=== PATIENT | male | born 1970 ===

== ENCOUNTER 2020-10-13 10:07 | Emergency (ER) | payer BC, MEDICARE, SELFPAY ==
--- NOTE | ~2020-10-13 | XR_ITS ---
EXAMINATION: XR TIBIA-FIBULA, LEFT XR TIBIA AND FIBULA, RIGHT CLINICAL INFORMATION: Trauma COMPARISON: None TECHNIQUE: Right tibia-fibula, AP and lateral views Left tibia-fibula, AP and lateral views FINDINGS: Left leg: The knee is included in the [id number]. There is chronic, severe loss of medial tibial femoral joint space with subarticular sclerosis, subarticular cystic change and osteophyte formation. Moderate osteoarthritis of the patellofemoral and lateral tibiofemoral compartments. There are loose ossific bodies within the knee joint. The tibia and fibula are intact. At the ankle, the talar dome is well-positioned within the mortise. There appears to be diffuse edema of subcutaneous tissues with scattered dystrophic calcifications and/or phleboliths. Right leg: The knee is partially included in [id number]. The osteoarthritis is severe at the medial tibiofemoral compartment where there is severe loss of the joint space, subarticular sclerosis, subarticular cystic change and osteophyte formation. The tibia and fibula are intact. There appear to be small marginal osteophytes at the ankle. No fracture or subluxation at the ankle. Diffuse edema of subcutaneous tissues of the extremity and scattered soft tissue calcifications. XR/XR tibia fibula LT 2V IMPRESSION: * No acute osseous injury in either lower extremity. * Osteoarthritis of both knees (severe at medial tibiofemoral compartments, with genu varus deformed). * Mild osteoarthritis of the right ankle.
--- NOTE | ~2020-10-13 | XR_ITS ---
EXAMINATION: XR TIBIA-FIBULA, LEFT XR TIBIA AND FIBULA, RIGHT CLINICAL INFORMATION: Trauma COMPARISON: None TECHNIQUE: Right tibia-fibula, AP and lateral views Left tibia-fibula, AP and lateral views FINDINGS: Left leg: The knee is included in the [id number]. There is chronic, severe loss of medial tibial femoral joint space with subarticular sclerosis, subarticular cystic change and osteophyte formation. Moderate osteoarthritis of the patellofemoral and lateral tibiofemoral compartments. There are loose ossific bodies within the knee joint. The tibia and fibula are intact. At the ankle, the talar dome is well-positioned within the mortise. There appears to be diffuse edema of subcutaneous tissues with scattered dystrophic calcifications and/or phleboliths. Right leg: The knee is partially included in [id number]. The osteoarthritis is severe at the medial tibiofemoral compartment where there is severe loss of the joint space, subarticular sclerosis, subarticular cystic change and osteophyte formation. The tibia and fibula are intact. There appear to be small marginal osteophytes at the ankle. No fracture or subluxation at the ankle. Diffuse edema of subcutaneous tissues of the extremity and scattered soft tissue calcifications. XR/XR tibia fibula RT 2V IMPRESSION: * No acute osseous injury in either lower extremity. * Osteoarthritis of both knees (severe at medial tibiofemoral compartments, with genu varus deformed). * Mild osteoarthritis of the right ankle.
--- NOTE | ~2020-10-13 | US_ITS ---
EXAMINATION: US VENOUS ULTRASOUND WITH DOPPLER LOWER EXTREMITY, BILATERAL CLINICAL INFORMATION: Trauma. COMPARISON: None TECHNIQUE: Ultrasound of the deep veins is performed from the hip to the calf with compression sonography and color and pulse Doppler assessment. Spectral analysis with color-flow imaging is performed. FINDINGS: RIGHT: There is normal venous compression and respiratory variation and augmented flow. The visualized common femoral vein, superficial femoral vein, profunda femoral vein, popliteal vein, and the trifurcation region shows no evidence of deep venous thrombosis. There is no significant popliteal fossa cyst. LEFT: There is normal venous compression and respiratory variation and augmented flow. The visualized common femoral vein, superficial femoral vein, profunda femoral vein, popliteal vein, and the trifurcation region shows no evidence of deep venous thrombosis. There is no significant popliteal fossa cyst. If the patient's symptoms persist, followup ultrasound in 5 days 7 days might be of value to exclude proximal propagation from a non-visualized calf vein. US/US venous duplex LE BI IMPRESSION: No DVT demonstrated in the bilateral lower extremity.
[2020-10-13 10:16] VITALS: BP 132/83; BP 140/83; PULSE 79; PULSE 98; RESP 17; TEMP 36.8; O2SAT 94; O2SAT 98; BMI 57.8
--- NOTE | 2020-10-13 10:33 | ED_ITS ---
HPI - Extremity Problem General Chief complaint: Extremity Problem Stated complaint: SHAHAB LEG PAIN S/P FALL THIS AM Time Seen by Provider: 10/13/20 10:18 Source: patient Mode of arrival: EMS Limitations: no limitations History of Present Illness HPI Narrative: THIS IS A 50 YEARS OLD THE PATIENT WITH MORBID OBESITY PRESENTED BY AMBULANCE COMPLAINING OF RIGHT LEG PAIN AFTER A FALL . HE HAS DIFFICULTY AMBULATION OF BASELINE SECONDARY TO BODY HABITUS MD Complaint: extremity pain Onset (ago): day(s) (1) Pain Consistency: constant Location: right Quality: aching Radiation: none Relieving factors: nothing Exacerbating factors: nothing Related Data Allergies Allergy/AdvReac Type Severity Reaction Status Date / Time risperidone [Risperdal] Allergy Unknown hives/rash Verified 10/13/20 10:16 nitroglycerin [NITROGLYCERIN] AdvReac Unknown SEVERE Verified 10/13/20 10:16 HYPOTENSION Review of Systems Review of Systems: Yes all other systems are reviewed and are negative Constitutional: Constitutional: Reports no additional constitutional complaints Eyes: Eyes: Reports no additional eye complaints Cardiovascular: Cardiovascular: Reports no additional cardiovascular complaints Hematologic/Lymphatic: Hematologic/Lymphatic: Reports no additional hematologic/lymphatic complaints [facility] Past Medical History Attestation statement: The following information was validated with the patient. Medical History Arthritis Asthma COPD (chronic obstructive pulmonary disease) DVT (deep venous thrombosis) HTN (hypertension) Sleep apnea Surgical History History of bowel resection Social History Social History Alcohol intake: unknown Patient Tobacco Use Status: Former Tobacco user Smoked in Last 30 Days: No Use of substances other than those prescribed or required for medical reasons: Unknown Advance Directives: No Advance Directives Information Provided: No Physical Exam Vital Signs: Vital Signs: Last Vital Signs Temp 98.2 F 10/13/20 10:36 Pulse 79 10/13/20 10:36 Resp 17 10/13/20 10:36 BP 140/83 H 10/13/20 10:36 Pulse Ox 94 10/13/20 10:36 Body Mass Index 57.8 Const: Other: PATIENT IS AWAKE AND ALERT General: cooperative Nutritional Appearance: well nourished Orientation/consciousness: oriented to person, oriented to place, oriented to time and patient oriented x3 HENMT: Head: Yes normal to inspection General nose exam: Normal external nose present Face and sinus: Yes normal facial exam Mouth: Normal oral and palatal mucosa present Teeth and gingiva: dentition normal Throat: Yes posterior oropharynx normal Neck: Neck: Yes normal visual inspection and Yes full ROM Chest: Chest palpation & inspection: normal inspection of the chest and normal palpation of entire chest wall Resp: Effort & Inspection: normal respiratory effort Auscultation: clear to auscultation bilaterally Cardio: Jugular venous distension: no JVD Rate: regular rate GI: Inspection: Yes normal to inspection Palpation (GI): Soft to palpation, not firm, nontender and no guarding Percussion: Yes normal to percussion Skin: Other: NO RASH Neuro: General: oriented to person, oriented to place, oriented to time and patient oriented x3 Extrem: Other: PATIENT HAS BILATERAL EDEMA IN THE LOWER EXTREMITY NO DEFORMITY SEEN Course Course Course Narrative: IS FEELING BETTER BILATERAL LEG ULTRASOUND THE NEGATIVE X-RAY OF THE BOTH LEGS ARE NEGATIVE WITHOUT ANY FRACTURE. HE HAS LOWER EXTREMITY EDEMA I THINK AT THE THIS POINT WE COULD DISCHARGE THE PATIENT HOME WITH LEG ELEVATION AND THE LOW-SALT DIET (NO DVT SEEN ON ULTRASOUND) Discharge Plan Discharge Clinical Impression: Lower extremity edema Patient Disposition: Home, Self-Care Instructions: Edema (ED) Referrals: Physician,Unknown [Primary Care Provider] - 2 days
[2020-10-13] MEDS: LORazepam 1 MG TABLET PO (10:34)
[2020-10-13 10:36] VITALS: BP 140/83; PULSE 79; RESP 17; TEMP 36.8; O2SAT 94
--- NOTE | 2020-10-13 10:38 | PC.NURSE ---
pt very restless, thrashing lower legs on the bed and screaming at times. HE states he has right lower leg pain, states it started overnight and caused him to fall at home twice. Pt fell soundly asleep, snoring during triage interview, then startles awake and continues speaking. He reports history of DVT in left leg
--- NOTE | 2020-10-13 10:40 | PC.NURSE ---
pt states he takes oxycodone for pain at home, states he has not refilled his prescription because he has moved, lost ID, not had transportation.He says he has had no medication for 4 days.
[2020-10-13] MEDS: oxyCODONE HCl Immed Release 5 MG TABLET 10 MG PO (10:52)
--- NOTE | 2020-10-13 12:46 | PC.NURSE ---
pt has been to ultrasound and awaits results. He has been sitting at bed edge, pt very restless.
[2020-10-13 12:55] VITALS: BP 172/90; PULSE 98; RESP 17; O2SAT 98
== END 2020-10-13 13:01 | disposition home or self-care (01) ==
PROVIDERS: Emergency Provider Emergency Medicine
DX: R60.0 Localized edema (principal); M79.604 Pain in right leg; I10 Essential (primary) hypertension; Z86.718 Personal history of other venous thrombosis and embolism
CPT/HCPCS: 73590; 93970; 99284

== ENCOUNTER 2020-10-31 22:11 | Emergency (ER) | payer BC, MEDICARE, SELFPAY ==
[2020-10-31 22:19] VITALS: BP 150/93; PULSE 89; RESP 18; TEMP 36.8; O2SAT 100; BMI 46.9
[2020-10-31 22:43] VITALS: BP 131/70; PULSE 85; TEMP 37.1; O2SAT 94
--- NOTE | 2020-10-31 22:55 | ED_ITS ---
HPI - SOB/Dyspnea General Chief Complaint: Dyspnea Stated Complaint: DIFF BREATHING Time Seen by Provider: 10/31/20 22:21 Source: patient Mode of arrival: EMS Limitations: no limitations History of Present Illness HPI Narrative: 50-year-old male who presents emergency department for evaluation of shortness of breath. Patient has a history of asthma and obstructive sleep apnea. He states that 2 weeks prior he was living in [facility] and took a [employer] bus back to the [facility]. He states that the bus took 4 days. The patient states that he had a bag with his medications and his CPAP machine in it. This bag was lost. He states he has not been taking any of his medications are using his CPAP machine. He states that he was feeling fine all day. He went to bed at 8:30 p.m.. He then woke up short of breath. States he is having difficulty catching his breath therefore he called 911. He states that he had his nebulizer machine he would have used it at home. The patient denied fever, chills, chest pain, cough or dyspnea on exertion prior to the onset of his shortness of breath. He states that he is feeling significantly better since arriving in the emergency department. Patient's O2 saturation on room air is 100%. Patient states that he has chronic pain and he takes oxycodone 15 mg every 6 hours. Patient states that he is having pain in his shoulders, elbows hips and knees. Related Data Previous Rx's Medication Instructions Recorded albuterol sulfate 2.5 mg INHALATION Q4-6H PRN #75 ml 11/01/20 albuterol sulfate 90 mcg/actuation 2 puff INHALATION Q4-6H PRN #8.5 g 11/01/20 aerosol inhaler prednisone 20 mg tablet 60 mg PO DAILY 5 Days #15 tab 11/01/20 Allergies Allergy/AdvReac Type Severity Reaction Status Date / Time risperidone [Risperdal] Allergy Unknown hives/rash Verified 10/13/20 10:16 nitroglycerin [NITROGLYCERIN] AdvReac Unknown SEVERE Verified 10/13/20 10:16 HYPOTENSION Review of Systems Review of Systems: Yes all other systems are reviewed and are negative [facility] Past Medical History [facility] Narrative: Past medical history: Please see below, this was reviewed by me. Social history: He denies tobacco, alcohol and drug use. Medical History Arthritis Asthma COPD (chronic obstructive pulmonary disease) DVT (deep venous thrombosis) HTN (hypertension) Sleep apnea Surgical History History of bowel resection Social History Social History Alcohol intake: unknown Patient Tobacco Use Status: Former Tobacco user Advance Directives: No Advance Directives Information Provided: Yes Physical Exam Vital Signs: Vital Signs: Last Vital Signs Temp 97.9 F 11/01/20 01:35 Pulse 82 11/01/20 01:35 Resp 34 H 11/01/20 01:35 BP 134/61 11/01/20 01:35 Pulse Ox 89 L 11/01/20 01:35 Body Mass Index 46.9 Const: General: cooperative and no acute distress Nutritional Appearance: obese Orientation/consciousness: oriented to person and oriented to place Limitations: no limitations HENMT: Head: Yes normal to inspection, Yes normocephalic and Yes atraumatic Ears: external ears normal General nose exam: Normal external nose present Face and sinus: Yes normal facial exam Mouth: Normal oral and palatal mucosa present Throat: Yes posterior oropharynx normal Eyes: General: appearance normal, both eyes and all related structures Pupils: Equal, round and reactive pupils present Neck: Neck: Yes normal visual inspection, Yes no lymphadenopathy, Yes trachea midline and Yes supple Chest: Chest palpation & inspection: normal inspection of the chest and normal palpation of entire chest wall Resp: Effort & Inspection: normal respiratory effort and able to speak in complete sentences Auscultation: wheezes (Bilaterally diffuse) Cardio: Rate: regular rate Rhythm: regular rhythm Heart sounds: S1 normal heart sound present, S2 normal heart sound present and no murmurs GI: Inspection: Yes normal to inspection Palpation (GI): Soft to palpation, nontender and no guarding Auscultation: normal bowel sounds : General: Yes no CVA tenderness Back/Spine/Pelvis: Back: no CVA tenderness Skin: General skin exam: no rashes or lesions noted Neuro: General: oriented to person and oriented to place Cranial nerves: Yes CN's II-XII intact bilaterally and Yes Equal, round and reactive pupils present Cognition (Neuro): normal cognition Motor exam (neuro): 5/5 motor strength present throughout Extrem: General: Yes normal to inspection Psych: Appearance: grossly normal Speech and movement: Normal speech and movement present Affect: normal affect Attitude: cooperative Thought process: Normal thought process present Thought content: Normal thought content present Course Course Course Narrative: 50-year-old male who has a history of asthma and obstructive sleep apnea who presents emergency department for evaluation of shortness of breath that woke him from sleep. Patient had no chest pain associated with his shortness of breath. He denied fever or cough as well. The patient has not been using his CPAP machine, his albuterol inhaler or his other medications since he lost these 2 weeks later while he was riding a [employer] bus. Vital signs revealed an elevated blood pressure of 150/93 and an O2 saturation of 100% on room air. Lung exam did reveal diffuse wheezing. Exam was otherwise unremarkable. I do not think the patient has a pulmonary embolism or pneumonia as the cause was symptoms and I think that his symptoms are consistent with an asthma exacerbation. He was ordered to get prednisone 60 mg orally and an albuterol nebulizer 5 mg x1. Patient does have a history of chronic pain and he was ordered to get oxycodone 15 mg orally. 0141: The patient's lung exam is significantly improved after the above treatment. The patient states that he has reordered his CPAP machine, his nebulizer and his glucometer. At this time I do not think the patient needs to be hospitalized and he will be discharged home with a prescription for prednisone 60 mg once a day for 5 days, albuterol inhaler 2 puffs every 4 hours as needed for shortness of breath and albuterol nebulizer solution. The patient was given verbal and printed instructions prior to discharge. The patient was advised to follow-up with his PCP in 2 days and to return to the emergency department if his symptoms get worse or if he develops any new symptoms that are concerning to him. Discharge Plan Discharge Clinical Impression: Asthma with exacerbation Patient Disposition: Home, Self-Care Instructions: Asthma (ED) Additional Instructions: Take prednisone 20 mg pills, 3 pills once a day for 5 days. Use the albuterol inhaler , 2 puffs every 4-6 hours as needed for shortness of breath and wheezing. Also use the albuterol nebulizer solution, 1 dose every 4-6 hours as needed for shortness of breath and wheezing. Follow-up with your doctor in 2 days. Please return to the emergency department if your symptoms get worse or if you develop any symptoms that are concerning to you. Prescriptions: New albuterol sulfate 90 mcg/actuation HFA aerosol inhaler 2 puff inhalation Q4-6H PRN (Reason: shortness of breath or wheezing) Qty: 8.5 RF: 0 prednisone 20 mg tablet 60 mg PO DAILY 5 Days Qty: 15 RF: 0 albuterol sulfate 2.5 mg /3 mL (0.083 %) solution for nebulization 2.5 mg inhalation Q4-6H PRN (Reason: shortness of breath or wheezing) Qty: 75 RF: 0
[2020-10-31] MEDS: predniSONE 20 MG TABLET 60 MG PO (23:40)
[2020-10-31] MEDS: oxyCODONE HCl Immed Release 15 MG TABLET PO (23:40)
[2020-10-31] MEDS: Albuterol Sulfate (0.083%) 2.5 MG/3 ML VIAL.NEB 5 MG INHALE (23:58)
[2020-10-31 23:59] VITALS: PULSE 66
[2020-11-01 01:35] VITALS: BP 134/61; PULSE 82; RESP 34; TEMP 36.6; O2SAT 89
[2020-11-01 01:49] VITALS: BP 139/67; PULSE 84; RESP 20; O2SAT 94
== END 2020-11-01 02:21 | disposition home or self-care (01) ==
PROVIDERS: Emergency Provider Emergency Medicine Emergency Medical Services
DX: J45.901 Unspecified asthma with (acute) exacerbation (principal); R06.02 Shortness of breath; I10 Essential (primary) hypertension; Z86.718 Personal history of other venous thrombosis and embolism
CPT/HCPCS: 94640; 99284

== ENCOUNTER 2020-11-13 21:07 | Emergency (ER) | payer BC, SELFPAY ==
--- NOTE | ~2020-11-13 | XR_ITS ---
EXAMINATION: XR CHEST CLINICAL INFORMATION: Chest pain. COMPARISON: 08/02/2014 chest radiograph. TECHNIQUE: Frontal view of the chest was obtained. FINDINGS: No significant abnormality is noted involving the heart, lungs, mediastinum, bony thorax or soft tissues. XR/XR chest 1V IMPRESSION: No acute cardiopulmonary process.
--- NOTE | 2020-11-13 21:18 | ECG_ITS ---
Test Reason : CHEST PAIN Blood Pressure : / mmHG Vent. Rate : 091 BPM Atrial Rate : 091 BPM P-R Int : 138 ms QRS Dur : 076 ms QT Int : 358 ms P-R-T Axes : 071 047 072 degrees QTc Int : 440 ms Normal sinus rhythm Low voltage QRS Borderline ECG No previous ECGs available Referred By: Bin Flores Electronically Signed By:RAFITA JIMENEZ
--- NOTE | 2020-11-13 21:20 | ED.SOB ---
HPI - SOB/Dyspnea General Chief Complaint: General Medical Stated Complaint: CHEST PAIN Time Seen by Provider: 11/13/20 21:10 Source: patient Mode of arrival: ambulatory Limitations: no limitations History of Present Illness HPI Narrative: 50-year-old male came in for evaluation of chest palpitation. Chest palpitation started about 2 hours before arrival, patient felt no chest pain that felt the palpitation is radiating to the left shoulder area, with numbness at the tip of fingers in both sides, lasted for about 15-20 minutes. Patient was sitting and resting during the symptoms, symptoms resolved spontaneously, patient currently has no palpitation. Nothing relieving the pain or make it worse, no history of similar chest pain. Patient is not COVID vaccinated, patient is homeless reside in a motel currently, no exposure to sick contact, but recently traveled inside the night state, patient feeling generalized body aches, sneezing, coughing, difficulty breathing with wheezing. With known history of COPD/asthma. Patient is a former smoker. Related Data Previous Rx's Medication Instructions Recorded albuterol sulfate 2.5 mg INHALATION Q4-6H PRN #75 ml 11/01/20 albuterol sulfate 90 mcg/actuation 2 puff INHALATION Q4-6H PRN #8.5 g 11/01/20 aerosol inhaler prednisone 20 mg tablet 60 mg PO DAILY 5 Days #15 tab 11/01/20 Allergies Allergy/AdvReac Type Severity Reaction Status Date / Time risperidone [Risperdal] Allergy Unknown hives/rash Verified 10/13/20 10:16 nitroglycerin [NITROGLYCERIN] AdvReac Unknown SEVERE Verified 10/13/20 10:16 HYPOTENSION Review of Systems Review of Systems: All other systems are reviewed and are negative Constitutional: Reports as per HPI and Reports no additional constitutional complaints Eyes: Reports as per HPI and Reports no additional eye complaints Reports system reviewed and no additional complaints, except as documented Cardiovascular: Reports as per HPI and Reports no additional cardiovascular complaints Respiratory: Reports as per HPI and Reports no additional respiratory complaints Gastrointestinal: Reports as per HPI and Reports no additional gastrointestinal complaints Genitourinary: Reports no additional female genitourinary complaints Musculoskeletal: Reports no additional musculoskeletal complaints Skin/Breast: Reports system reviewed and no additional complaints, except as docu Psychiatric: Reports no additional psychiatric complaints Endocrine: Reports no additional endocrine complaints Hematologic/Lymphatic: Reports no additional hematologic/lymphatic complaints Allergic/Immunologic: Reports no additional allergic/immunologic complaints Reports system reviewed and no additional complaints, except as documented and Reports Abnormal speech present [facility] Past Medical History Medical History Arthritis Asthma COPD (chronic obstructive pulmonary disease) DVT (deep venous thrombosis) HTN (hypertension) Sleep apnea Surgical History History of bowel resection Social History Social History Alcohol intake: unknown Patient Tobacco Use Status: Former Tobacco user Use of substances other than those prescribed or required for medical reasons: No Advance Directives: No Advance Directives Information Provided: Yes Physical Exam Vital Signs: Vital Signs: Last Vital Signs Temp 98.5 F 11/14/20 00:09 Pulse 91 11/14/20 00:09 Resp 38 H 11/14/20 00:09 BP 132/77 11/14/20 00:09 Pulse Ox 92 11/14/20 00:09 Body Mass Index 48.3 Vital signs have been reviewed as appeared to be correct. Blood pressure normal. Heart rate normal. Respiration rate normal. Temperature normal. Oxygen saturation normal. Appearance: Alert. Oriented X3. No acute distress. Head: Normal external exam. Normocephalic. Atraumatic. No Vilchis signs noted. No raccoon eyes noted Eyes: PERRLA. EOMI. Conjunctiva and sclera normal. Eyelids normal. ENT: TM's Normal. Pharynx normal. Uvula midline. Moist mucous membranes. No trismus noted. No drooling noted. No muffled voice noted. Neck: Normal inspection. Neck supple. FROM. No adenopathy. Thyroid Normal. No meningeal signs. No neck mass noted. CVS: Normal heart rate and rhythm. Heart sound normal. No murmurs noted. Pulses normal throughout. Respiratory: No respiratory distress. Painless inspiration. Breath sounds normal. Mild bilateral expiratory wheezing with prolonged expiration. Chest nontender. No accessory muscle usage noted or decreased air movement noted. Abdomen: Soft and nontender. Bowel sounds normal in all 4 quadrants. No distention noted. No organomegaly noted. No visible injury noted. Back: No CVA tenderness. Full range of motion noted. Skin: Skin warm and dry. Normal skin color. Normal skin turgor. No rashes/lesions/lacerations noted. Extremities: No lower extremity edema. Extremities exhibit normal range of motion. Extremities nontender. Neuro: Oriented X 3. Cranial nerve exam: II-XII are grossly intact No motor deficit. No sensory deficit. Reflexes normal. Course Course Course Narrative: Assessment and plan. 50-year-old male came in with heart palpitation and shortness of breath. Patient had cardiac workup of unremarkable EKG and troponin with unremarkable x2 with 3 hours apart. Patient with viral syndrome having upper respiratory symptoms. Mild asthma exacerbation to continue with albuterol. MDM - SOB/Dyspnea Medical Records Attestation: I reviewed the patient's medical records. Lab Data Attestation: I reviewed the patient's lab results. Result diagrams: 11/13/20 21:38 11/13/20 21:37 Labs: Lab Results 11/13/20 11/13/20 11/13/20 Range/Units 21:37 21:37 21:38 WBC 8.9 (4.8-10.8) X10*3/uL RBC 4.51 L (4.60-5.80) X10*6/uL Hgb 13.2 L (14.0-18.0) g/dl Hct 41.1 L (42-52) % MCV 91.1 (80-98) fL MCH 29.3 (27.0-33.0) pg MCHC 32.1 (31.0-36.0) g/dl RDW 12.6 (11.0-16.0) % Plt Count 255 (160-400) X10*3/uL MPV 9.3 L (9.4-12.4) fL Immature Gran % (Auto) 2.5 H (0.0-0.4) % Neut % (Auto) 66.3 (45-73) % Lymph % (Auto) 19.8 L (20-40) % Morgan % (Auto) 8.5 (2-11) % Eos % (Auto) 2.6 (0-4) % Baso % (Auto) 0.3 (0-2) % Lymph # (Auto) 1.8 (1.2-4.9) X10*3/uL Morgan # (Auto) 0.8 (0.1-1.2) X10*3/uL Eos # (Auto) 0.2 (0.0-0.4) X10*3/uL Baso # (Auto) 0.0 (0.0-0.2) X10*3/uL Abs Immat Gran (auto) 0.22 H (0.00-0.03) X10*3/uL Absolute Neuts (auto) 5.9 (2.0-8.3) X10*3/uL Absolute Nucleated RBC 0.000 (0.0-0.012) X10*3/uL Nucleated RBC % (auto) 0.0 (0.0-0.2) /100WBC Sodium 138 (135-145) mmol/L Potassium 4.1 (3.3-5.1) mmol/L Chloride 99 (96-108) mmol/L Carbon Dioxide 32 H (22-29) mmol/L Anion Gap 11 L (12-20) BUN 11 (9-16) mg/dL Creatinine 0.91 (0.5-1.4) mg/dL Estim Creat Clear Calc 142.5 Estimated GFR > 60 Random Glucose 312 H (60-115) mg/dL Calcium 8.9 (8.4-10.2) mg/dL Troponin I High Sens 5.2 (<3.5-35.0) ng/L B-Natriuretic Peptide 15 (<100) pg/mL COVID-19 ([facility]) (Negative) COVID-19 Clin Com 11/13/20 11/14/20 Range/Units 21:38 01:01 WBC (4.8-10.8) X10*3/uL RBC (4.60-5.80) X10*6/uL Hgb (14.0-18.0) g/dl Hct (42-52) % MCV (80-98) fL MCH (27.0-33.0) pg MCHC (31.0-36.0) g/dl RDW (11.0-16.0) % Plt Count (160-400) X10*3/uL MPV (9.4-12.4) fL Immature Gran % (Auto) (0.0-0.4) % Neut % (Auto) (45-73) % Lymph % (Auto) (20-40) % Morgan % (Auto) (2-11) % Eos % (Auto) (0-4) % Baso % (Auto) (0-2) % Lymph # (Auto) (1.2-4.9) X10*3/uL Morgan # (Auto) (0.1-1.2) X10*3/uL Eos # (Auto) (0.0-0.4) X10*3/uL Baso # (Auto) (0.0-0.2) X10*3/uL Abs Immat Gran (auto) (0.00-0.03) X10*3/uL Absolute Neuts (auto) (2.0-8.3) X10*3/uL Absolute Nucleated RBC (0.0-0.012) X10*3/uL Nucleated RBC % (auto) (0.0-0.2) /100WBC Sodium (135-145) mmol/L Potassium (3.3-5.1) mmol/L Chloride (96-108) mmol/L Carbon Dioxide (22-29) mmol/L Anion Gap (12-20) BUN (9-16) mg/dL Creatinine (0.5-1.4) mg/dL Estim Creat Clear Calc Estimated GFR Random Glucose (60-115) mg/dL Calcium (8.4-10.2) mg/dL Troponin I High Sens 3.7 (<3.5-35.0) ng/L B-Natriuretic Peptide (<100) pg/mL COVID-19 ([facility]) Negative (Negative) COVID-19 Clin Com See Note Imaging Data Chest x-ray: Radiologist's impression: No acute cardiopulmonary process. ECG Data Interpretation: Normal sinus rhythm at 91 beats per minutes, normal axis deviation, normal intervals, no ST-T changes. Discharge Plan Discharge Clinical Impression: Heart palpitations, Acute viral syndrome Asthma exacerbation Qualifiers: Asthma severity: mild Asthma persistence: unspecified Qualified Code(s): J45.901 - Unspecified asthma with (acute) exacerbation Patient Disposition: Home, Self-Care Instructions: Viral Syndrome (ED) Prescriptions: No Action albuterol sulfate 90 mcg/actuation HFA aerosol inhaler 2 puff inhalation Q4-6H PRN (Reason: shortness of breath or wheezing) Qty: 8.5 RF: 0 prednisone 20 mg tablet 60 mg PO DAILY 5 Days Qty: 15 RF: 0 albuterol sulfate 2.5 mg /3 mL (0.083 %) solution for nebulization 2.5 mg inhalation Q4-6H PRN (Reason: shortness of breath or wheezing) Qty: 75 RF: 0 Referrals: Physician,Unknown [Primary Care Provider] - 2 days
[2020-11-13 21:22] VITALS: BP 134/67; PULSE 94; RESP 20; TEMP 36.8; O2SAT 95; BMI 48.3
[2020-11-13] MEDS: Albuterol/Iprat 2.5/0.5MG 3 ML AMPUL.NEB INHALE (21:32)
[2020-11-13] MEDS: Albuterol Sulfate (0.083%) 2.5 MG/3 ML VIAL.NEB INHALE (21:32)
[2020-11-13 21:34] VITALS: PULSE 89; O2SAT 95
[2020-11-13] MEDS: Acetaminophen 325 MG TABLET PO (21:39)
[2020-11-13 21:43] LABS: MANUAL DIFF FLAG NO
[2020-11-13 21:47] LABS: Basophils Percent Auto 0.3 % (0-2); Eosinophils Absolute Auto 0.2 X10*3/uL (0.0-0.4); Eosinophils Percent Auto 2.6 % (0-4); Hematocrit 41.1 % (42-52); Hemoglobin 13.2 g/dl (14.0-18.0); Imm Gran Abs Auto 0.22 X10*3/uL (0.00-0.03); Imm Gran Pct Auto 2.5 % (0.0-0.4); Lymphocytes Absolute Auto 1.8 X10*3/uL (1.2-4.9); Lymphocytes Percent Auto 19.8 % (20-40); Mean Corpuscular HGB Conc 32.1 g/dl (31.0-36.0); Mean Corpuscular Hemoglobin 29.3 pg (27.0-33.0); Mean Corpuscular Volume 91.1 fL (80-98); Mean Platelet Volume 9.3 fL (9.4-12.4); Monocytes Absolute Auto 0.8 X10*3/uL (0.1-1.2); Monocytes Percent Auto 8.5 % (2-11); Neutrophils Absolute Auto 5.9 X10*3/uL (2.0-8.3); Neutrophils Percent Auto 66.3 % (45-73); Platelet Count 255 X10*3/uL (160-400); Red Blood Count 4.51 X10*6/uL (4.60-5.80); Red Cell Distribution Width 12.6 % (11.0-16.0); White Blood Count 8.9 X10*3/uL (4.8-10.8)
--- NOTE | 2020-11-13 21:47 | PC.NURSE ---
PT MEDICATED PER MAR, MANAGER SOCIAL SERVICES APPLIED, NSR ON MONITOR. BLOOD SPECIMEN DRAWN AND SENT TO LAB FOR PROCESSING.VSS. UPDRAFT CURRENTLY BEING ADMINISTERED. SKIN PWD, RESPIRATIONS EVEN UNLABORED.
[2020-11-13 21:59] LABS: Anion Gap 11 (12-20); Blood Urea Nitrogen 11 mg/dL (9-16); Calcium 8.9 mg/dL (8.4-10.2); Carbon Dioxide 32 mmol/L (22-29); Chloride 99 mmol/L (96-108); Creatinine Clr Calc Pharmacy 142.5; Estimated Glomerular Filt Rate > 60; Glucose Random 312 mg/dL (60-115); Potassium 4.1 mmol/L (3.3-5.1); Sodium 138 mmol/L (135-145)
[2020-11-13 22:07] LABS: B Type Natriuretic Peptide 15 pg/mL (<100); Troponin-I High Sensitivity 5.2 ng/L (<3.5-35.0)
[2020-11-13 22:16] LABS: COVID-19 Test Negative (Negative)
[2020-11-14 00:09] VITALS: BP 132/77; PULSE 91; RESP 38; TEMP 36.9; O2SAT 92
[2020-11-14 01:26] LABS: Troponin-I High Sensitivity 3.7 ng/L (<3.5-35.0)
[2020-11-14] MEDS: Albuterol Sulfate 90 MCG 8 GM INHALER 2 PUFF INHALE (02:19)
[2020-11-14 02:20] VITALS: PULSE 86; O2SAT 100
== END 2020-11-14 02:46 | disposition home or self-care (01) ==
PROVIDERS: Emergency Provider Emergency Medicine
DX: R00.2 Palpitations (principal); B34.9 Viral infection, unspecified; J45.901 Unspecified asthma with (acute) exacerbation; R06.02 Shortness of breath; Z20.822 Contact with and (suspected) exposure to COVID-19; I10 Essential (primary) hypertension; Z86.718 Personal history of other venous thrombosis and embolism
CPT/HCPCS: 36415; 71045; 80048; 83880; 84484; 85025; 87635; 93005; 94640; 99284; 99285

== ENCOUNTER 2020-12-17 00:08 | Emergency (ER) | payer BC, MEDICAID, MEDICARE, SELFPAY ==
[2020-12-17] VITALS (10 sets, daily range): BP systolic 129–198; BP diastolic 65–90; PULSE 74–199; RESP 15–20; TEMP 36.4–36.9; O2SAT 91–97; BMI 48.3
--- NOTE | ~2020-12-17 | XR_ITS ---
EXAMINATION: XR KNEE, LEFT CLINICAL INFORMATION: Pain. Fall. COMPARISON: Previous x-ray June 2013 TECHNIQUE: Four views of the left knee. FINDINGS: No fracture or dislocation seen. There is varus angulation at the knee joint. There is severe arthritis. There is a large joint effusion. There may be ossified intra-articular loose bodies. XR/XR knee LT 4V IMPRESSION: Severe arthritis, joint effusion and question ossified intra-articular loose bodies. No fracture or dislocation.
--- NOTE | ~2020-12-17 | XR_ITS ---
EXAMINATION: XR CHEST CLINICAL INFORMATION: Rib pain COMPARISON: 11/13/2020 TECHNIQUE: Frontal view of the chest was obtained. FINDINGS: The right costophrenic angle is not in the [id number] of this study. The lungs are well expanded. There is no focal consolidation, edema, or effusion. No pneumothorax. The cardiomediastinal silhouette is within normal limits. No acute osseous abnormality. XR/XR chest 1V IMPRESSION: No acute pulmonary finding. No displaced fractures are seen.
--- NOTE | ~2020-12-17 | XR_ITS ---
EXAMINATION: XR WRIST, RIGHT CLINICAL INFORMATION: Fall, trauma, pain COMPARISON: None TECHNIQUE: The right wrist is imaged in 4 views. FINDINGS: There is no visible fracture or dislocation. The ulnar variance is neutral. There is no joint narrowing or erosive change. Bony mineralization is normal. No destructive process. XR/XR wrist RT min 3V IMPRESSION: No fracture or dislocation.
--- NOTE | 2020-12-17 00:44 | ED.GENADULT ---
HPI - General Adult General Chief complaint: Fall Stated complaint: R WRIST PAIN S/P FALL 24 HOURS AGO Time Seen by Provider: 12/17/20 01:50 Source: patient and EMS Mode of arrival: EMS Limitations: no limitations History of Present Illness HPI narrative: 50-year-old male presents via EMS with report of wrist pain after a fall 24 hours ago. Onset (ago): day(s) (1) Location: right and upper extremity Radiation: non-radiation Severity: mild Severity scale (1-10): 1 Quality: aching Pain Consistency: constant Relieving factors: none Exacerbating factors: movement Treatments prior to arrival: none Related Data Previous Rx's Medication Instructions Recorded albuterol sulfate 2.5 mg INHALATION Q4-6H PRN #75 ml 11/01/20 albuterol sulfate 90 mcg/actuation 2 puff INHALATION Q4-6H PRN #8.5 g 11/01/20 aerosol inhaler prednisone 20 mg tablet 60 mg PO DAILY 5 Days #15 tab 11/01/20 Allergies Allergy/AdvReac Type Severity Reaction Status Date / Time risperidone [Risperdal] Allergy Unknown hives/rash Verified 10/13/20 10:16 lisinopril Allergy Unknown Verified 12/17/20 01:39 nitroglycerin [NITROGLYCERIN] AdvReac Unknown SEVERE Verified 10/13/20 10:16 HYPOTENSION Review of Systems Review of Systems: Constitutional: No Fever, No Chills ENT/Mouth: No Ear Pain, No Hoarseness, No sore throat Eyes: No Eye Pain, No Swelling, No Redness, No Foreign Body Cardiovascular: No Chest Pain, No SOB Respiratory: No Cough, No Dyspnea Gastrointestinal: No Nausea, No Vomiting, No Diarrhea, No abdominal Pain Genitourinary: No Dysuria, No Hematuria Musculoskeletal: positive right wrist and right chest wall pain, No Myalgias, No Joint Swelling Skin: No Skin lacerations, No rash Neuro: No Weakness, No Numbness, No Paresthesias, No Loss of Consciousness, No Dizziness, No Headache Psych: No Anxiety/Panic, No Depression Heme/Lymph: no easy bruising, no Lymphadenopathy Endocrine: No Polyuria, No Polydipsia Yes all other systems are reviewed and are negative [facility] Past Medical History Attestation statement: The following information was validated with the patient. Source: old records reviewed Medical History Arthritis Asthma COPD (chronic obstructive pulmonary disease) DVT (deep venous thrombosis) HTN (hypertension) Sleep apnea Surgical History History of bowel resection Social History Social History Alcohol intake: unknown Patient Tobacco Use Status: Former Tobacco user Advance Directives: No Advance Directives Information Provided: No Physical Exam Vital Signs: Vital Signs: Last Vital Signs Pulse 91 12/17/20 01:35 Resp 20 12/17/20 01:35 BP 135/77 12/17/20 01:35 Pulse Ox 97 12/17/20 01:35 Body Mass Index 48.3 Appearance: Alert. Oriented X3. No acute distress. Morbidly obese. Eyes: Pupils equal, round and reactive to light. ENT: Pharynx normal. Neck: Normal inspection. Neck supple. CVS: Normal heart rate and rhythm. Pulses normal. Respiratory: No respiratory distress. Breath sounds normal. Abdomen: Soft and nontender. Skin: Skin warm and dry. Normal skin color. Normal skin turgor. Extremities: No lower extremity edema. Neuro: No motor deficit. No sensory deficit. Course Course Course Narrative: 50-year-old male presents via EMS for pain after a fall over 24 hours ago. While I was speaking to this patient, he stated that he falls multiple times a day, has wrist pain and right-sided chest pain because he fell into his tub yesterday. He does not report any other injuries. His report was inconsistent with the EMS report. EMS reports that he had 1/10 wrist pain and could not care for himself at home and was looking for a case management consult. When I presented that information to the patient, he stated yes that he can not take care of himself at home and that he cannot also take care of his mother at the same time. He is requesting Case Management. Patient appears comfortable, using his phone during my interview. I did discuss this with nursing supervisor lump room, plan of care is for Case Management in the morning. Physician observation started at this time. Sign-out to Dr. Talamantes. Medical Decision Making MDM Narrative Medical decision making narrative: Case management consult Medical Records Medical records reviewed: Yes I reviewed the patient's medical records. Lab Data Lab results reviewed: Yes I reviewed the patient's lab results. Imaging Data Chest x-ray: Attestation: I personally reviewed and interpreted this imaging study as follows: Radiologist's impression: EXAMINATION: XR CHEST CLINICAL INFORMATION: Rib pain COMPARISON: 11/13/2020 TECHNIQUE: Frontal view of the chest was obtained. FINDINGS: The right costophrenic angle is not in the [id number] of this study. The lungs are well expanded. There is no focal consolidation, edema, or effusion. No pneumothorax. The cardiomediastinal silhouette is within normal limits. No acute osseous abnormality. XR/XR chest 1V IMPRESSION: No acute pulmonary finding. No displaced fractures are seen. Discharge Plan Discharge Clinical Impression: Chest pain, non-cardiac Instructions: Chest Wall Pain (ED) Prescriptions: No Action albuterol sulfate 90 mcg/actuation HFA aerosol inhaler 2 puff inhalation Q4-6H PRN (Reason: shortness of breath or wheezing) Qty: 8.5 RF: 0 prednisone 20 mg tablet 60 mg PO DAILY 5 Days Qty: 15 RF: 0 albuterol sulfate 2.5 mg /3 mL (0.083 %) solution for nebulization 2.5 mg inhalation Q4-6H PRN (Reason: shortness of breath or wheezing) Qty: 75 RF: 0
--- NOTE | 2020-12-17 02:44 | PC.NURSE ---
Labs and Covid obtained and sent. Pt provided with bedside urinal for urine sample when able. Pt sleeping in bed at this time in [facility].
[2020-12-17 02:46] LABS: MANUAL DIFF FLAG NO
[2020-12-17 02:51] LABS: Basophils Percent Auto 0.4 % (0-2); Eosinophils Absolute Auto 0.3 X10*3/uL (0.0-0.4); Eosinophils Percent Auto 3.9 % (0-4); Hematocrit 40.8 % (42-52); Hemoglobin 12.9 g/dl (14.0-18.0); Imm Gran Abs Auto 0.08 X10*3/uL (0.00-0.03); Lymphocytes Absolute Auto 2.2 X10*3/uL (1.2-4.9); Lymphocytes Percent Auto 27.3 % (20-40); Mean Corpuscular HGB Conc 31.6 g/dl (31.0-36.0); Mean Corpuscular Hemoglobin 28.7 pg (27.0-33.0); Mean Corpuscular Volume 90.9 fL (80-98); Mean Platelet Volume 9.1 fL (9.4-12.4); Monocytes Absolute Auto 0.8 X10*3/uL (0.1-1.2); Monocytes Percent Auto 9.6 % (2-11); Neutrophils Absolute Auto 4.7 X10*3/uL (2.0-8.3); Neutrophils Percent Auto 57.8 % (45-73); Platelet Count 272 X10*3/uL (160-400); Red Blood Count 4.49 X10*6/uL (4.60-5.80); Red Cell Distribution Width 12.8 % (11.0-16.0); White Blood Count 8.2 X10*3/uL (4.8-10.8)
[2020-12-17 03:06] LABS: COVID-19 Test Negative (Negative); IDNOW Serial# 9DD0AD1C
[2020-12-17 03:08] LABS: Anion Gap 11 (12-20); Blood Urea Nitrogen 12 mg/dL (9-16); Carbon Dioxide 31 mmol/L (22-29); Chloride 104 mmol/L (96-108); Creatinine Clr Calc Pharmacy 152.6; Estimated Glomerular Filt Rate > 60; Glucose Random 188 mg/dL (60-115); Sodium 142 mmol/L (135-145)
--- NOTE | 2020-12-17 06:35 | PC.NURSE ---
Pt sleeping throughout the night in NAD. Pt remains unable to provide urine sample. Pt aware of plan for consult.
--- NOTE | 2020-12-17 07:35 | PC.NURSE ---
pt is currently eating breakfast
--- NOTE | 2020-12-17 08:13 | PHA.MEDREC ---
Pharmacy Consult ? Medication Reconciliation Pharmacy has completed the medication reconciliation. Based on the patients external medication fill history and contacting [facility], the only medications that have been filled since 2019 are Albuterol soln and Proair. Patient states that he is homeless and has been taking Simvastatin 40 mg QD, Singular 10 mg QD, Oxycodone 15 mg Q6H PRN and Aspirin 81 mg QD but I have no way to verify any of these medications. I am informing the provider about my findings. Lashawn Segovia, PharmD [phone]
[2020-12-17] MEDS: Montelukast Sodium 10 MG TABLET PO (09:42)
--- NOTE | 2020-12-17 11:34 | PC.NURSE ---
pt's oxygen level on the lower side, 90-91% on room air, ls diminished, pt reports that he wears cpap at night, called the respiratory for a breathing treatment
--- NOTE | 2020-12-17 13:09 | PC.NURSE ---
pt is currently eating lunch
--- NOTE | 2020-12-17 13:56 | MHC.CM.ED ---
Received case management consult. Patient came to the ER due to hand pain after a fall. Work up essentially negative. Physical therapy eval completed. Short term rehab is recommended. Patient has not received any Covid vaccine. Placement will be difficult to find because of this. Referral broadcasted in [employer]. Continue to monitor for d/c needs.
[2020-12-17] MEDS: Albuterol Sulfate (0.083%) 2.5 MG/3 ML VIAL.NEB INHALE (14:50)
--- NOTE | 2020-12-17 17:22 | PC.NURSE ---
pt sleeping on and off, very heavy snoring noticed, respirations even and unlabored at this time.
--- NOTE | 2020-12-17 18:31 | MHC.CM.ED ---
CM attempted to meet with pt, but pt can not stay awake to answer any questions. Will try when pt more awake. No acute rehab bed offers. [facility] but no available bed. No [facility] bed offers at this time. Several facilities pending. CM to follow for d/c needs.
[2020-12-17] MEDS: Albuterol Sulfate 90 MCG 8 GM INHALER 2 PUFF INHALE (19:11)
--- NOTE | 2020-12-17 19:14 | PC.NURSE ---
pt in hallway with inspiratory wheezing heard by auscultation. PO 94% on RA, pt given prn inhaler tx with good effect. pt awake, respirations easy, n/l. pt eating dinner tray at bedside. will continue to monitor pt.
--- NOTE | 2020-12-17 19:34 | PC.NURSE ---
pt yelling at staff walking by to get him food after eating a dinner tray and sandwich.
--- NOTE | 2020-12-17 21:50 | MHC.CM.ED ---
Addendum entered by Shanda Sultana 12/17/20 22:29: Referrals sent out 40 miles. CM to follow for d/c needs. Original Note: CM met with patient after dinner. Fully awake. Pt is NOT vaccinated against Covid 19. Pt states he is homeless. Has been living in a motel. States has no more money. Unsure where he will live next. States he is very weak and continually falls. STR is recommending Acute Rehab. Pt denies any family that can help him. Pt is agreeable to STR. Pt is morbidly obese. States he needs a scooter. HCP is not on file. HCP/sister Mariposa Arevalo ([phone]). Mariposa lives in [place]. HCP reviewed, completed and signed. Copies given. Uploaded into [email or web address] and [employer]. No bed offers from acute rehab. [facility] is following. No bed offers yet. Referred out 25 miles. Will refer out 35 miles per patient request. CM to follow for d/c needs.
--- NOTE | 2020-12-17 22:58 | PC.NURSE ---
PT AWAITING FOR CASE MGT IN THE AM. PT RESTING IN STRETCHER IN NAD.
[2020-12-18] VITALS: BP 136/74; PULSE 62; RESP 15; TEMP 36.3; O2SAT 93
--- NOTE | 2020-12-18 01:30 | PC.NURSE ---
PT SLEEPING IN HALLWAY IN NAD. PT DENIES ANY COMPLAINTS. RESPIRATIONS EASY, N/L. SKIN W/D. WILL CONTINUE TO MONITOR PT.
[2020-12-18 02:00] VITALS: BP 156/78; PULSE 64; RESP 16; TEMP 36.2; O2SAT 91
--- NOTE | 2020-12-18 04:05 | PC.NURSE ---
PT SLEEPING IN STRETCHER, WAKES TO VOICE. PT IN NAD AND AWAITING FOR CASE MGT IN THE MORNING. PT ALERT, RESPIRATIONS EASY, N/L. SKIN W/D. WILL CONTINUE TO MONITOR PT.
[2020-12-18 06:00] VITALS: BP 154/72; PULSE 72; RESP 16; TEMP 36.6; O2SAT 90
[2020-12-18] MEDS: Aspirin Enteric Coated 81 MG TABLET.DR PO (08:21)
[2020-12-18] MEDS: Montelukast Sodium 10 MG TABLET PO (08:21)
[2020-12-18 10:28] LABS: Appearance Urine CLEAR; Color Urine YELLOW; Glucose Urine UA NEG (NEG); Leukocyte Esterase Urine NEG (NEG); Nitrite Urine NEG (NEG); Specific Gravity - Urine 1.025 (1.005-1.025); Urine Blood NEG (NEG); Urine Ketones NEG (NEG); Urine Protein NEG (NEG-TRACE)
--- NOTE | 2020-12-18 11:06 | PC.NURSE ---
Pt moved to room 15 and hospital bed obtained. Pt cleaned and changed. appears comfortable
[2020-12-18 11:10] VITALS: BP 136/41; PULSE 91; RESP 18; TEMP 37; O2SAT 93
[2020-12-18] MEDS: Acetaminophen 325 MG TABLET 650 MG PO ×2 (14:12→20:59)
--- NOTE | 2020-12-18 14:23 | MHC.CM.ED ---
Addendum entered by Coni Landon 12/18/20 17:07: PATIENT DOES NOT HAVE BLUE CROSS BLUE SHIELD. MEDICARE INFO GIVEN TO FACILITY. ADMISSION REVIEW SHOWS THAT IS PRIMARY Original Note: PATIENT OFFERED A BED AT [facility]. NOW GOING FOR AUTH. PATIENT AGREEABLE TO THIS PLAN AND UNDERSTANDS THAT THIS IS THE ONLY ACCEPTING FACILITY SECONDARY TO VACCINATION STATUS. RN AWARE. CASE MANAGEMENT FOLLOWING FOR AUTH TO TRANSPORT.
--- NOTE | 2020-12-18 18:45 | PC.NURSE ---
plan for facility in [place] tomorrow
[2020-12-18 19:15] VITALS: BP 153/81; PULSE 89; RESP 20; TEMP 37; O2SAT 93
[2020-12-18] MEDS: Atorvastatin Calcium 20 MG TABLET PO (20:59)
[2020-12-18] MEDS: oxyCODONE HCl Immed Release 5 MG TABLET 10 MG PO (23:16)
[2020-12-19 00:05] VITALS: BP 149/62; PULSE 91; RESP 22; TEMP 36.9; O2SAT 93
[2020-12-19 06:00] VITALS: BP 142/86; PULSE 84; RESP 20; TEMP 36.9; O2SAT 93
--- NOTE | 2020-12-19 06:05 | PC.NURSE ---
Pt alert and oriented x4, calm and cooperative. Pt denies pain at this time. No IV in place. Vitals stable. Pt out of bed to commode, pt voided this shift, pt had BM this shift. Pt resting in stretcher without complaints, will continue to monitor.
--- NOTE | 2020-12-19 07:26 | PC.NURSE ---
Assumed care of patient. Pt is resting comfortably at this time and does not appear to be in any distress. Pt will be transported to [place] today for short term rehab placement
[2020-12-19] MEDS: Aspirin Enteric Coated 81 MG TABLET.DR PO (08:23)
[2020-12-19] MEDS: Montelukast Sodium 10 MG TABLET PO (08:23)
[2020-12-19] MEDS: Acetaminophen 325 MG TABLET 650 MG PO ×3 (08:23→20:46)
--- NOTE | 2020-12-19 09:18 | MHC.CM.ED ---
Patient remains in ER. Adrien is looking for verification of [employer] and Medicare. Per Lucia, insurance verification, [employer] is inactive. Medicare is prime. But Medicare has BC as primary. Referral made to financial couseling by Jaz METZGER. Continue to monitor for d/c needs.
[2020-12-19 14:39] VITALS: BP 127/70; PULSE 91; RESP 16; TEMP 36.8; O2SAT 99
[2020-12-19] MEDS: oxyCODONE HCl Immed Release 5 MG TABLET PO (18:17)
--- NOTE | 2020-12-19 19:09 | MHC.CM.ED ---
Pt requesting to speak with CM. Explained to pt issues with insurance and that financial services have been contacted to address issues. Fax sent 12/18/20 to Financial Services. Andrews text to Tatiana Manuel 12/19/20 @[phone]. ANGELA to follow for d/c needs.
[2020-12-19] MEDS: Ibuprofen 600 MG TABLET PO (20:46)
[2020-12-19] MEDS: Atorvastatin Calcium 20 MG TABLET PO (20:46)
[2020-12-19 20:49] VITALS: BP 140/79; PULSE 95; RESP 20; TEMP 36.9; O2SAT 92
[2020-12-20] VITALS (7 sets, daily range): BP systolic 133–146; BP diastolic 67–116; PULSE 86–91; RESP 14–20; TEMP 36.7–36.9; O2SAT 92–96
--- NOTE | 2020-12-20 09:14 | MHC.CM.ED ---
Patient remains in ER. Financial Counselors have not seen patient. Sabra Zamora, Director of Case Management aware and will reach out to Financial Counseling. Continue to monitor for d/c needs.
[2020-12-20] MEDS: oxyCODONE HCl Immed Release 5 MG TABLET PO (09:48)
[2020-12-20] MEDS: Montelukast Sodium 10 MG TABLET PO (09:49)
[2020-12-20] MEDS: Acetaminophen 325 MG TABLET 650 MG PO ×3 (09:49→23:15)
[2020-12-20] MEDS: Aspirin Enteric Coated 81 MG TABLET.DR PO (09:49)
[2020-12-20] MEDS: Albuterol Sulfate (0.083%) 2.5 MG/3 ML VIAL.NEB INHALE (11:41)
--- NOTE | 2020-12-20 12:36 | MHC.CM.ED ---
Spoke with Monique in financial counseling. Patient is not homeless. Lives in [place]. Was in [place] visiting his mom. He intends to return to [place] when his health improves. Per Monique, he does have a [place] Medicaid Blue Cross.
--- NOTE | 2020-12-20 18:43 | PC.NURSE ---
pt has tolerated all of meal tray. pt had a visitior and after visitor departed heavy marijuana odor noted in room. security made aware, no paraphenalia was evident.
[2020-12-20] MEDS: Atorvastatin Calcium 20 MG TABLET PO (23:15)
[2020-12-21] VITALS (8 sets, daily range): BP systolic 125–162; BP diastolic 49–88; PULSE 78–90; RESP 18–20; TEMP 36.5–36.7; O2SAT 93–98
--- NOTE | 2020-12-21 01:25 | PC.NURSE ---
respiratory into set up CPap. no respiratory distress at this time. pt is resting
--- NOTE | 2020-12-21 03:17 | PC.NURSE ---
pt is sleeping at this time. no sign of respiratory distress.
--- NOTE | 2020-12-21 04:58 | PC.NURSE ---
pt sleeping at this time.
--- NOTE | 2020-12-21 09:34 | PC.NURSE ---
Pt has been sleeping soundly with cpap on since my arrival at 7am.
[2020-12-21] MEDS: Acetaminophen 325 MG TABLET 650 MG PO ×2 (10:06→21:08)
[2020-12-21] MEDS: Montelukast Sodium 10 MG TABLET PO (10:07)
[2020-12-21] MEDS: Aspirin Enteric Coated 81 MG TABLET.DR PO (10:07)
--- NOTE | 2020-12-21 10:18 | PC.NURSE ---
awake. good bed mobility. breakfast ordered. mult requests by patient.
--- NOTE | 2020-12-21 13:32 | MHC.CM.ED ---
Pt called [employer] and tells CM his . Financial servies, Monique aware. That number is not active. Monique is requesting that perhaps pt can call Medicare and let them know that his current BCBS is a secondary plan not a repllacement plan. CM will speak with pt. CM to follow for d/c plan.
--- NOTE | 2020-12-21 19:02 | PC.NURSE ---
over the course of the day pt has been resting, eating, talking to staff. behaviour has been appropriate, able to transfer to [employer] and WC w/o assist. uses urinal w/o assist. unlabored resp. skin pwd. talking with family on phone.
--- NOTE | 2020-12-21 20:09 | MHC.CM.ED ---
CM spoke with pt. Pt is aware that [facility] in [place] is interested, but have requested an updated PT/OT evaluation. PT continues to recommend STR. Awaiting OT evaluation. Pt aware that he will probably be here over the weekend. Pt is agreeable to [facility] if bed offered and to staying in ED for STR placement. CM also explained that Financial Services suggested that he call Medicare and explain to them that his BC is a secondary, not a primary insurance. Pt aware that the BC number he gave me in not accurate. Pt will call on Thursday.
[2020-12-21] MEDS: Atorvastatin Calcium 20 MG TABLET PO (21:08)
[2020-12-21] MEDS: Ibuprofen 600 MG TABLET PO (21:13)
--- NOTE | 2020-12-21 22:53 | PC.NURSE ---
Pt resting on HB in NAD, breathing with ease on RA. Pt offers no complaints at this time. HB in low locked position, rails raised, call guzman remains within reach of pt.
[2020-12-22 01:58] VITALS: PULSE 85; RESP 20; O2SAT 93
[2020-12-22 03:21] VITALS: PULSE 72; RESP 24; O2SAT 94
[2020-12-22] MEDS: Acetaminophen 325 MG TABLET 650 MG PO ×2 (03:23→10:23)
[2020-12-22 06:00] VITALS: BP 142/80; PULSE 75; RESP 18; TEMP 36.3; O2SAT 96
--- NOTE | 2020-12-22 10:00 | PC.NURSE ---
pt demanding snacks throughout the shift. speaking loudly on his cell phone and playing music loudly. pt got upset when asked to lower music. breakfast given. pt asking to go outside of the ed. pt refusing Tylenol states it doesn't do anything for him . PRN Morphine given as documented. pt remains case management. will continue to monitor.
[2020-12-22] MEDS: Montelukast Sodium 10 MG TABLET PO (10:23)
[2020-12-22] MEDS: Aspirin Enteric Coated 81 MG TABLET.DR PO (10:23)
[2020-12-22] MEDS: oxyCODONE HCl Immed Release 5 MG TABLET PO (10:27)
--- NOTE | 2020-12-22 10:52 | MHC.CM.ED ---
[facility] is still reviewing , additionally OT has not seen patient yet. snf requested this eval for their review. once the OT eval is completed it will be sent to snf. dc plan is to [facility] when all evals are completed. cm to cont. to follow.
--- NOTE | 2020-12-22 14:00 | PC.NURSE ---
pt in room talking loudly on his cell phone, lunch given, pt requesting seconds stating I am supposed to get double portions. asking staff to go to the vending machine. pt cursing and swearing when needs not met immediately. Multiple complaints voiced from pt.
[2020-12-22 18:00] VITALS: BP 141/93; PULSE 87; RESP 18; TEMP 36.6; O2SAT 95
[2020-12-22] MEDS: Atorvastatin Calcium 20 MG TABLET PO (21:21)
[2020-12-22 21:22] VITALS: BP 146/92; PULSE 87; RESP 18; O2SAT 95
[2020-12-23] MEDS: Ibuprofen 600 MG TABLET PO (05:56)
[2020-12-23 06:00] VITALS: BP 145/84; PULSE 79; RESP 18; O2SAT 95
[2020-12-23 08:46] VITALS: BP 149/85; PULSE 94; RESP 20; O2SAT 95
[2020-12-23] MEDS: Aspirin Enteric Coated 81 MG TABLET.DR PO (08:48)
[2020-12-23] MEDS: Montelukast Sodium 10 MG TABLET PO (08:48)
[2020-12-23] MEDS: oxyCODONE HCl ER 10 MG TAB.ER.12H PO ×2 (09:38→22:06)
[2020-12-23 14:28] VITALS: BP 151/87; PULSE 99; RESP 18; TEMP 36.3; O2SAT 93
[2020-12-23] MEDS: Acetaminophen 325 MG TABLET 650 MG PO (19:34)
[2020-12-23 21:55] VITALS: BP 147/78; PULSE 97; RESP 18; TEMP 36.9; O2SAT 92
[2020-12-23 22:04] VITALS: BP 146/85; PULSE 94; RESP 24
[2020-12-23] MEDS: Atorvastatin Calcium 20 MG TABLET PO (22:06)
[2020-12-23 22:07] VITALS: BP 146/85; PULSE 93; RESP 24; O2SAT 94
[2020-12-24 06:00] VITALS: PULSE 85; RESP 20; O2SAT 93
[2020-12-24 08:48] VITALS: BP 139/78; PULSE 93; RESP 18; O2SAT 94
[2020-12-24] MEDS: Acetaminophen 325 MG TABLET 650 MG PO ×3 (09:48→21:41)
[2020-12-24] MEDS: oxyCODONE HCl ER 10 MG TAB.ER.12H PO ×2 (09:48→21:41)
[2020-12-24] MEDS: Montelukast Sodium 10 MG TABLET PO (09:49)
[2020-12-24] MEDS: Aspirin Enteric Coated 81 MG TABLET.DR PO (09:49)
--- NOTE | 2020-12-24 09:54 | MHC.CM.PN ---
NAY[facility] WHATLEY OFFERING BED PENDING INS AUTH, PER NAYELY PT HAS BCBS MED ADV, NOT LIKELY AUTH WILL GO THROUGH TODAY BCBS HAS BEEN BEHIND IN [place], CM WILL CONT TO FOLLOW.
[2020-12-24 11:52] VITALS: BP 142/88; PULSE 88; RESP 18; TEMP 36.7; O2SAT 93
[2020-12-24 14:00] VITALS: BP 141/61; PULSE 96; RESP 14; O2SAT 98
--- NOTE | 2020-12-24 19:20 | PC.NURSE ---
Pt shouting from room saying I need food! It's 720 and nobody has fed me yet! This RN to bedside to informs pt that he will receive food as soon as a staff member is able. Pt states go fuck yourself! I'll kill your mother. This RN redirects pt behavior, informs him not to speak to staff disrespectfully or to make threats. Pt speaks in Bhutanese. Pt remains on HB in lowest locked position, rails raised, call guzman within reach. Pt's RR even and unlabored, skin warm dry and normal in appearance for age and race. ABCs intact without compromise.
[2020-12-24 19:36] VITALS: BP 150/84; PULSE 100; RESP 16; TEMP 36.7; O2SAT 98
--- NOTE | 2020-12-24 21:20 | PC.NURSE ---
Pt ate entire dinner, resting on HB in NAD, breathing with ease on RA. Pt without complaints at this time.
[2020-12-24] MEDS: Ibuprofen 600 MG TABLET PO (21:41)
[2020-12-24] MEDS: Atorvastatin Calcium 20 MG TABLET PO (21:42)
[2020-12-24 21:45] VITALS: BP 153/87; PULSE 93; RESP 18; O2SAT 100
[2020-12-25] VITALS: BP 142/75; PULSE 96; RESP 15; TEMP 36.7; O2SAT 92
--- NOTE | 2020-12-25 00:53 | PC.NURSE ---
Pt resting on HB in NAD, breathing with ease on RA. Pt watching TV on his cellular phone. Pt offers no complaints. Bed in low locked position, rails raised, call guzman within reach
--- NOTE | 2020-12-25 02:37 | PC.NURSE ---
Pt medicated with tylenol at 2140 and is therefore not due again until 0340. To maintain tylenol schedule as ordered, this RN not medicate with 0215 dose as pt offered no complaints of pain/discomfort during rounding.
--- NOTE | 2020-12-25 03:16 | PC.NURSE ---
This RN notes pt to be dozing off to sleep, contacted RT to set up nocturnal CPAP
[2020-12-25 03:46] VITALS: PULSE 80; RESP 20; O2SAT 92
[2020-12-25 06:00] VITALS: BP 124/70; PULSE 64; RESP 19; TEMP 37.2; O2SAT 95
[2020-12-25] MEDS: oxyCODONE HCl ER 10 MG TAB.ER.12H PO ×2 (09:31→21:43)
[2020-12-25] MEDS: Montelukast Sodium 10 MG TABLET PO (09:31)
[2020-12-25] MEDS: Aspirin Enteric Coated 81 MG TABLET.DR PO (09:31)
[2020-12-25 21:09] VITALS: BP 140/85; PULSE 93; RESP 16; O2SAT 93
[2020-12-25] MEDS: Atorvastatin Calcium 20 MG TABLET PO (21:43)
[2020-12-25] MEDS: Acetaminophen 325 MG TABLET 650 MG PO (21:43)
--- NOTE | 2020-12-25 21:58 | PC.NURSE ---
CLOSED CURTAIN TO ROOM, PT EXPOSED. PT DID NOT WANT CURTAIN CLOSED, WAS GIVEN BLANKET TO COVER HIMSELF. PT MAKING INAPPROPRIATE COMMENT TO FEMALE PCT. PT GIVEN SODA, URINAL EMPTIED.
[2020-12-26 04:30] VITALS: PULSE 85; RESP 20; O2SAT 90
--- NOTE | 2020-12-26 04:44 | PC.NURSE ---
PT PLACED CPAP ON HIMSELF, SLEEPING COMFORTABLY.
[2020-12-26 07:18] VITALS: BP 143/86; PULSE 85; RESP 13; O2SAT 94
--- NOTE | 2020-12-26 07:52 | PC.NURSE ---
care assumed for this pt at 0700, pt has been asleep using cpap machine. resp even and unlabored nad. plan is a continued case management bed search for STR.
[2020-12-26] MEDS: Acetaminophen 325 MG TABLET 650 MG PO ×3 (08:52→22:49)
[2020-12-26] MEDS: Aspirin Enteric Coated 81 MG TABLET.DR PO (08:52)
[2020-12-26] MEDS: oxyCODONE HCl ER 10 MG TAB.ER.12H PO ×2 (08:52→22:42)
[2020-12-26] MEDS: Montelukast Sodium 10 MG TABLET PO (08:52)
--- NOTE | 2020-12-26 13:33 | MHC.CM.ED ---
Patient remains in ER. Bob is in the process of obtaining insurance auth. Patient is aware. Continue to monitor for d/c needs.
[2020-12-26] MEDS: Atorvastatin Calcium 20 MG TABLET PO (22:42)
[2020-12-27 04:30] VITALS: PULSE 83; RESP 20; O2SAT 92
[2020-12-27 06:00] VITALS: BP 127/90; PULSE 84; RESP 18; O2SAT 97
[2020-12-27 08:34] VITALS: PULSE 79; RESP 18; O2SAT 93
--- NOTE | 2020-12-27 10:00 | PC.NURSE ---
pt alert and oriented. pt given breakfast, pt requesting something more to eat after getting breakfast. meds given as documented. urinal and call bed at bedside. pt alert and oriented.
[2020-12-27] MEDS: Aspirin Enteric Coated 81 MG TABLET.DR PO (10:01)
[2020-12-27] MEDS: Montelukast Sodium 10 MG TABLET PO (10:01)
[2020-12-27] MEDS: Acetaminophen 325 MG TABLET 650 MG PO ×2 (10:01→22:11)
[2020-12-27] MEDS: oxyCODONE HCl ER 10 MG TAB.ER.12H PO ×2 (10:01→22:12)
[2020-12-27 10:04] VITALS: BP 135/72; PULSE 84; RESP 18; O2SAT 97
--- NOTE | 2020-12-27 11:00 | MHC.CM.ED ---
Addendum entered by Christina Barnett 12/27/20 12:41: Bob requesting updated physical therapy note for ins auth. Physical therapy has been asked to see patient again. Original Note: Clinical updates sent to Bob via [employer] at their request. Continue to monitor for d/c needs.
[2020-12-27 13:28] VITALS: BP 135/72; PULSE 84; O2SAT 97
--- NOTE | 2020-12-27 17:10 | MHC.CM.ED ---
Bob still waiting for insurance authorization from [employer] [place]. Pt to call Medicare in the am to [place] and change [place] Medicare. Written contact information and instructions given to patient. CM to follow for d/c needs.
[2020-12-27 22:00] VITALS: BP 143/61; PULSE 87; RESP 16; TEMP 30.5; O2SAT 97
[2020-12-27] MEDS: Atorvastatin Calcium 20 MG TABLET PO (22:12)
[2020-12-28 07:15] VITALS: BP 133/91; PULSE 81; RESP 19; O2SAT 98
[2020-12-28] MEDS: Aspirin Enteric Coated 81 MG TABLET.DR PO (09:37)
[2020-12-28] MEDS: Montelukast Sodium 10 MG TABLET PO (09:37)
[2020-12-28] MEDS: Acetaminophen 325 MG TABLET 650 MG PO (09:37)
--- NOTE | 2020-12-28 15:37 | MHC.CM.ED ---
pt did call bc/bs mcr today to change his ins. to [facility]. initially it there was going to be a waiting period for [facility] to be active - until mar 16, 2021. however, pt was told that in an emergency placement issue , such as needing placement, that the st mcr could be made effective immediately... which is was patient claimed they did for him. [facility] told me the [facility]'s ins. is still showing up as bc/bs. additionally, they told me patient would need to be admitted as inpatient for 3 mn's or to use the covid waiver , we at [facility] would have to claim we are in desperate need of covid beds. neither of these apply's to this situation. hence , we are still facing insurance and placement issues. cm to cont. to follow.
[2020-12-28 15:53] VITALS: BP 154/78; PULSE 97; RESP 20; TEMP 36.9; O2SAT 97
[2020-12-28] MEDS: Atorvastatin Calcium 20 MG TABLET PO (20:31)
[2020-12-28 22:00] VITALS: RESP 14
[2020-12-29 04:27] VITALS: PULSE 74; RESP 18; O2SAT 92
[2020-12-29] MEDS: Acetaminophen 325 MG TABLET 650 MG PO ×2 (04:41→08:48)
[2020-12-29 06:00] VITALS: BP 144/72; RESP 18; TEMP 36.7; O2SAT 98
[2020-12-29] MEDS: Montelukast Sodium 10 MG TABLET PO (08:48)
[2020-12-29] MEDS: Aspirin Enteric Coated 81 MG TABLET.DR PO (08:48)
[2020-12-29] MEDS: Ibuprofen 600 MG TABLET PO (12:42)
--- NOTE | 2020-12-29 12:53 | PC.NURSE ---
pt c/o increased pain to left knee and wrist. PRN medication given.
[2020-12-29 20:26] VITALS: BP 130/65; PULSE 96; RESP 20; TEMP 36.8; O2SAT 96
[2020-12-29] MEDS: Atorvastatin Calcium 20 MG TABLET PO (21:57)
[2020-12-30 04:07] VITALS: PULSE 79; RESP 18; O2SAT 91
[2020-12-30 07:56] VITALS: PULSE 96; RESP 18; O2SAT 96
[2020-12-30] MEDS: Aspirin Enteric Coated 81 MG TABLET.DR PO (10:25)
[2020-12-30] MEDS: Montelukast Sodium 10 MG TABLET PO (10:25)
--- NOTE | 2020-12-30 10:26 | MHC.CM.ED ---
Patient remains in ER. Referrals resent to original 44 facilities. [employer] should be changed to traditional Medicare. Patient is not Covid vaccinated. Continue to monitor for d/c needs.
[2020-12-30] MEDS: Atorvastatin Calcium 20 MG TABLET PO (20:11)
[2020-12-30] MEDS: Acetaminophen 325 MG TABLET 650 MG PO (20:11)
[2020-12-30 20:23] VITALS: BP 116/64; PULSE 94; RESP 18; TEMP 36.8; O2SAT 96
[2020-12-31 00:10] VITALS: RESP 18
[2020-12-31 02:00] VITALS: PULSE 94; RESP 20; O2SAT 95
[2020-12-31 04:03] VITALS: PULSE 92; RESP 18; O2SAT 96
[2020-12-31 06:04] VITALS: BP 122/68; PULSE 89; RESP 18; O2SAT 97
[2020-12-31] MEDS: Montelukast Sodium 10 MG TABLET PO (10:26)
[2020-12-31] MEDS: Aspirin Enteric Coated 81 MG TABLET.DR PO (10:26)
[2020-12-31] MEDS: Ibuprofen 600 MG TABLET PO (10:26)
[2020-12-31] MEDS: Acetaminophen 325 MG TABLET 650 MG PO ×2 (10:26→21:06)
--- NOTE | 2020-12-31 13:23 | MHC.CM.ED ---
i spoke c [facility] financial couseling today. pt has been switched to straight mcr, however it is not effective until 01/14/21. he has his [place] bc/[place] through 01/13/21. because of this patient cannot access area snf's since they are not contracted c his current ins. this was explained to patient who verbalized frustration but was steadfast on not returning to live c his mother. securing a payor source is the barrier to placement at this time. cm to cont. to follow.
--- NOTE | 2020-12-31 18:54 | MHC.CM.ED ---
Pt is requesting to have financial services consulted to help him complete the [facility] Application. Referral made. CM will continue to follow for d/c needs.
[2020-12-31] MEDS: Atorvastatin Calcium 20 MG TABLET PO (21:07)
[2021-01-01] MEDS: Acetaminophen 325 MG TABLET 650 MG PO ×3 (02:53→15:10)
[2021-01-01 03:37] VITALS: PULSE 95; RESP 18; O2SAT 95
--- NOTE | 2021-01-01 04:03 | PC.NURSE ---
RT at bedside for CPAP per pt request.
[2021-01-01 06:30] VITALS: RESP 20
--- NOTE | 2021-01-01 07:08 | PC.NURSE ---
assumed care of this pt at 0700 - pt resting comfortably, breakfast at bedside.
[2021-01-01] MEDS: Montelukast Sodium 10 MG TABLET PO (09:03)
[2021-01-01] MEDS: Aspirin Enteric Coated 81 MG TABLET.DR PO (09:03)
--- NOTE | 2021-01-01 13:28 | PC.NURSE ---
Nystatin powder ordered by for redness to underneath L breast
[2021-01-01] MEDS: Nystatin Powder 15 GM BOTTLE 1 APPL TOPICAL (13:45)
[2021-01-01 22:00] VITALS: BP 137/95; PULSE 99; RESP 15; TEMP 36.7; O2SAT 99
--- NOTE | 2021-01-01 23:16 | MHC.CM.ED ---
Pt tells CM that Monique from [employer] assisted him with completing MH application and pt states his MH has been approved. Unable to verify this at this time. CM will verify in am. CM following for d/c needs.
[2021-01-02] MEDS: Atorvastatin Calcium 20 MG TABLET PO ×2 (00:22→21:25)
[2021-01-02] MEDS: Ibuprofen 600 MG TABLET PO (00:24)
--- NOTE | 2021-01-02 03:49 | PC.NURSE ---
URINAL EMPTIED, PT DENIES COMPLAINTS. RESPIRATIONS EASY, N/L. PT AWAITING FOR DISPO.
[2021-01-02 04:35] VITALS: PULSE 89; RESP 18; O2SAT 92
--- NOTE | 2021-01-02 05:48 | PC.NURSE ---
PT ON C-PAP AT THIS TIME AND DENIES ANY COMPLAINTS. RESPIRATIONS EASY, N/L. WILL CONTINUE TO MONITOR PT.
[2021-01-02 06:26] VITALS: PULSE 95; RESP 20
--- NOTE | 2021-01-02 07:30 | PC.NURSE ---
pt sleeping resp even and unlabored.
[2021-01-02 08:13] VITALS: RESP 18
[2021-01-02 10:02] VITALS: BP 131/74; PULSE 90; RESP 18; TEMP 36.3; O2SAT 97
[2021-01-02] MEDS: Acetaminophen 325 MG TABLET 650 MG PO ×2 (10:04→21:25)
[2021-01-02] MEDS: Nystatin Powder 15 GM BOTTLE 1 APPL TOPICAL (10:05)
[2021-01-02] MEDS: Montelukast Sodium 10 MG TABLET PO (10:06)
[2021-01-02] MEDS: Aspirin Enteric Coated 81 MG TABLET.DR PO (10:06)
--- NOTE | 2021-01-02 10:14 | MHC.CM.ED ---
Addendum entered by Christina Barnett 01/02/21 10:25: [place] Medicare will be active until 01/13/21 and then change to Medicare traditional. Original Note: Patient remains in ER. Traditional medicare is primary insurance. [employer] is secondary insurance. Referrals resent to 84 facilities. Patient has not received any Covid vaccines. Continue to monitor for d/c needs.
[2021-01-03 02:11] VITALS: PULSE 95; RESP 18; O2SAT 91
--- NOTE | 2021-01-03 06:19 | PC.NURSE ---
Pt alert and oriented x4, calm and cooperative. Pt denies pain over shift leader. Pt ate food and tolerated well. Pt resting asleep at this time, will continue to monitor.
--- NOTE | 2021-01-03 08:19 | PC.NURSE ---
sleeping with c pap in place.
--- NOTE | 2021-01-03 10:02 | MHC.CM.ED ---
Addendum entered by Christina Barnett 01/03/21 12:43: APOORVA Hardin has ordered daily physical therapy visits until patient can be placed. Original Note: Patient remains in ER. No bed offers have been made yet. Continue to monitor for d/c needs.
[2021-01-03] MEDS: Aspirin Enteric Coated 81 MG TABLET.DR PO (10:37)
[2021-01-03] MEDS: Montelukast Sodium 10 MG TABLET PO (10:37)
[2021-01-03] MEDS: Nystatin Powder 15 GM BOTTLE 1 APPL TOPICAL ×2 (11:02→21:12)
[2021-01-03 14:01] VITALS: BP 131/74; PULSE 90; O2SAT 97
[2021-01-03] MEDS: Atorvastatin Calcium 20 MG TABLET PO (21:23)
[2021-01-03] MEDS: Acetaminophen 325 MG TABLET 650 MG PO (21:23)
[2021-01-04 06:18] VITALS: BP 145/84; PULSE 89; RESP 18; O2SAT 96
[2021-01-04 08:30] VITALS: PULSE 96; RESP 16; O2SAT 93
[2021-01-04] MEDS: Aspirin Enteric Coated 81 MG TABLET.DR PO (08:32)
[2021-01-04] MEDS: Montelukast Sodium 10 MG TABLET PO (08:32)
[2021-01-04] MEDS: Acetaminophen 325 MG TABLET 650 MG PO ×2 (08:32→20:18)
[2021-01-04] MEDS: Nystatin Powder 15 GM BOTTLE 1 APPL TOPICAL ×2 (08:33→20:27)
[2021-01-04 13:40] VITALS: BP 145/84; PULSE 89; O2SAT 96
[2021-01-04] MEDS: Atorvastatin Calcium 20 MG TABLET PO (20:18)
--- NOTE | 2021-01-05 06:18 | PC.NURSE ---
Pt sleeping through the night in NAD. Pt awaiting breakfast at this time. Continue to monitor.
[2021-01-05 06:19] VITALS: RESP 16
[2021-01-05 08:43] VITALS: BP 144/77; PULSE 91; RESP 20; O2SAT 95
[2021-01-05] MEDS: Acetaminophen 325 MG TABLET 650 MG PO ×2 (08:43→14:06)
[2021-01-05] MEDS: Montelukast Sodium 10 MG TABLET PO (08:43)
[2021-01-05] MEDS: Aspirin Enteric Coated 81 MG TABLET.DR PO (08:44)
--- NOTE | 2021-01-05 08:46 | PC.NURSE ---
pt given breakfast, meds given as documented. no apparent distress noted. vss.
[2021-01-05] MEDS: Nystatin Powder 15 GM BOTTLE 1 APPL TOPICAL ×2 (08:49→21:58)
--- NOTE | 2021-01-05 12:28 | MHC.CM.ED ---
Review of ED CM notes and SNF referrals: pt has not been accepted at this time: His insurance appears to be Medicare and [employer] although this is not able to be verified at this time. Pt will receive daily PT visits to assist with mobilty and ambulation until placement can be secured.
--- NOTE | 2021-01-05 20:43 | PC.NURSE ---
URINAL EMPTIED, PT REQUESTED AND WAS PROVIDED WITH NEW ID BAND AND MASK. PT ASKED FOR SANDWICH, PT JUST HAD DINNER TRAY AT 6PM. TOLD PT TO WAIT A FEW MORE HOURS BEFORE WE GAVE HIM A SANDWICH. PT HAS BOTTLE OF COKE FROM [employer] MACHINE ON TABLE.
[2021-01-05] MEDS: Atorvastatin Calcium 20 MG TABLET PO (21:58)
--- NOTE | 2021-01-05 22:12 | PC.NURSE ---
PT SEATED IN WHEEL CHAIR, WATCHING MOVIE ON PHONE. PT REFUSED TYLENOL, PT STATES IT DOESN'T DO ANYTHING FOR ME.
--- NOTE | 2021-01-05 22:41 | PC.NURSE ---
PT REQUESTED AND GIVEN 2 CUPS OF ICE CREAM.
--- NOTE | 2021-01-06 01:07 | PC.NURSE ---
PT GIVEN SANDWICH AND SODA.
--- NOTE | 2021-01-06 02:38 | PC.NURSE ---
pt requested and was assisted to pod for shower. pt reports he has showered recently, a shower bench was provider for him to use.
--- NOTE | 2021-01-06 04:16 | PC.NURSE ---
PT PLACED HIMSELF ON CPAP MACHINE, SLEEPING IN BED.
[2021-01-06] MEDS: Aspirin Enteric Coated 81 MG TABLET.DR PO (09:00)
[2021-01-06] MEDS: Montelukast Sodium 10 MG TABLET PO (09:00)
[2021-01-06] MEDS: Acetaminophen 325 MG TABLET 650 MG PO ×3 (09:00→21:17)
[2021-01-06] MEDS: Nystatin Powder 15 GM BOTTLE 1 APPL TOPICAL ×2 (09:02→21:17)
[2021-01-06 09:10] VITALS: BP 132/67; PULSE 90; RESP 20; TEMP 36.3; O2SAT 94
[2021-01-06 14:00] VITALS: BP 137/72; PULSE 80; RESP 18; O2SAT 93
[2021-01-06] MEDS: Atorvastatin Calcium 20 MG TABLET PO (21:17)
[2021-01-07] MEDS: Albuterol Sulfate 90 MCG 8 GM INHALER 2 PUFF INHALE (02:18)
[2021-01-07 04:15] VITALS: PULSE 90; RESP 16; O2SAT 92
[2021-01-07 07:30] VITALS: RESP 18
--- NOTE | 2021-01-07 09:18 | MHC.CM.ED ---
Patient remains in ER. [facility] will be active until 01/13 and then change to traditional Medicare and [facility]. [facility] facilities [facility]: [facility], [facility], [facility]. Continue to monitor for d/c needs.
[2021-01-07 10:00] VITALS: BP 159/78; PULSE 73; RESP 16; TEMP 35.9; O2SAT 95
[2021-01-07] MEDS: Montelukast Sodium 10 MG TABLET PO (10:03)
[2021-01-07] MEDS: Aspirin Enteric Coated 81 MG TABLET.DR PO (10:03)
[2021-01-07] MEDS: Ibuprofen 600 MG TABLET PO (10:03)
[2021-01-07] MEDS: Nystatin Powder 15 GM BOTTLE 1 APPL TOPICAL (10:04)
[2021-01-07 13:33] VITALS: BP 159/78; PULSE 73; O2SAT 95
[2021-01-07] MEDS: Atorvastatin Calcium 20 MG TABLET PO (21:40)
[2021-01-07] MEDS: Acetaminophen 325 MG TABLET 650 MG PO (21:41)
[2021-01-08] MEDS: Acetaminophen 325 MG TABLET 650 MG PO ×2 (03:39→20:27)
[2021-01-08 05:09] VITALS: PULSE 89; RESP 16; O2SAT 93
[2021-01-08 13:06] VITALS: BP 159/78; PULSE 73; O2SAT 95
--- NOTE | 2021-01-08 13:59 | MHC.CM.ED ---
Patient remains in ER. No bed offers made yet. Continue to monitor for d/c needs.
[2021-01-08 18:52] VITALS: PULSE 80; O2SAT 95
[2021-01-08] MEDS: Atorvastatin Calcium 20 MG TABLET PO (20:27)
--- NOTE | 2021-01-08 21:12 | MHC.CM.ED ---
Pt is agreeable to obtaining Covid vaccine. CM will call [facility] ambulatory mobile vaccination in am at [phone]. Pt is also requesting the Flu shot. Dr. Locke ordered the flu shot for the patient. Pt aware. Pt continues to participate in PT while awaiting STR and Insurance activation on 01/14/2021. CM to follow for d/c needs.
[2021-01-08 21:39] VITALS: RESP 18
[2021-01-08] MEDS: Nystatin Powder 15 GM BOTTLE 1 APPL TOPICAL (21:43)
--- NOTE | 2021-01-09 00:10 | PC.NURSE ---
TALKING WITH NURSING DIRECTOR OF RESIDENCE LIFE AND CASE MANAGEMENT ABOUT ADMINISTERING FLU VACCINE FOR PATIENT, DR. PRAJAPATI HAS PLACED THE ORDER FOR THE VACCINATION. BUT DIRECTOR OF RESIDENCE LIFE STATING THAT USUALLY THERE IS ADDITIONAL DOCUMENTATION FOR PATIENTS USING THE EXAMPLE OF ADMITTED PATIENTS, UNSURE IF THERE IS ADDITIONAL DOCUMENTATION IF THERE IS A PATIENT THAT WILL NOT BE ADMITTED. THIS RN NOT RUNNING INTO THIS ISSUE WITH THIS COMPUTER SYSTEM AND HAS NOT HAD TO ADMINISTER A FLU SHOT WHILE A PATIENT WAS IN THE EMERGENCY DEPARTMENT. DISCUSSING THIS ISSUE WITH CASE MANAGEMENT WELL BECAUSE THIS RN WAS ASKED BY THEM ABOUT THE ADMINISTRATION OF THE VACCINE. AFTER TALKING WITH THE DIRECTOR OF RESIDENCE LIFE AND CASE MANAGEMENT AND THE PRIMARY NURSE THE PLAN IS FOR [employer] AND CASE MANAGEMENT TO FOLLOW UP IN THE MORNING REGARDING IF ADDITIONAL DOCUMENTATION IS NEEDED FOR PROPER ADMINISTRATION FOR AN EMERGENCY DEPARTMENT PATIENT TO RECEIVE A SCHEDULED VACCINE. PATIENT UNDERSTANDING OF THE DELAY AND WAS INQUIRING ABOUT COVID VACCINATION.
--- NOTE | 2021-01-09 00:45 | PC.NURSE ---
flu vac returned to [facility] due to the approp forms are not available. talked with charge, case management and nursing manufacturing shift supervisor notified, case mnt team will follow up in the morning due to the med can not be proporly processed under state records that need to be documented. next rn will be notified in am.
[2021-01-09] MEDS: Acetaminophen 325 MG TABLET 650 MG PO ×2 (09:07→21:31)
[2021-01-09] MEDS: Montelukast Sodium 10 MG TABLET PO (09:08)
[2021-01-09] MEDS: Aspirin Enteric Coated 81 MG TABLET.DR PO (09:08)
--- NOTE | 2021-01-09 09:23 | MHC.CM.ED ---
Patient remains in ER. T/W spoke with [facility] mobile Covid vaccination unit. Patient information provided. They will give patient's info to the local mobile vaccine provider. The vaccine provider will contact patient directly to arrange an appointment. This process can take up to 2 weeks. Continue to monitor for d/c needs.
--- NOTE | 2021-01-09 09:30 | PC.NURSE ---
pleasant, nad, ate breakfast, medicated as ordered, flu shot given, no complaints other than he cannot find his sweatpants
[2021-01-09 10:52] VITALS: PULSE 80; O2SAT 95
--- NOTE | 2021-01-09 16:52 | PC.NURSE ---
Pt alert and oriented x4, calm and cooperative. Pt denies pain at this time, refused 1400 Tylenol stating he will have it at 1999. Pt remains in wheelchair without complaints. Vitals stable, will continue to monitor.
[2021-01-09] MEDS: Atorvastatin Calcium 20 MG TABLET PO (21:31)
[2021-01-09 22:00] VITALS: BP 146/71; PULSE 98; RESP 22; TEMP 36.7; O2SAT 95
[2021-01-10 02:35] VITALS: BP 146/79; PULSE 93; RESP 18; TEMP 36.8; O2SAT 94
[2021-01-10] MEDS: Acetaminophen 325 MG TABLET 650 MG PO ×2 (02:36→20:20)
--- NOTE | 2021-01-10 02:47 | PC.NURSE ---
Per Dinah, YASSINE patient has recently been moved from hallway to closed room for sleep on overnights when room is available. Per Dinah's recs, pt moved from 18H to room 18 for increased pt comfort and privacy for sleep. Pt medicated per MAY, pt placed his nocturnal CPAP on, and pt resting on HB in NAD, RR even and unlabored with equal chest rise and fall bilaterally. Bed low locked, rails raised, call guzman within reach.
--- NOTE | 2021-01-10 06:01 | PC.NURSE ---
Pt returned to 18H, remains asleep with nocturnal CPAP on, RR even and unlabored with equal chest rise and fall bilaterally.
[2021-01-10 06:09] VITALS: PULSE 84; O2SAT 91
[2021-01-10] MEDS: Montelukast Sodium 10 MG TABLET PO (10:37)
[2021-01-10] MEDS: Aspirin Enteric Coated 81 MG TABLET.DR PO (10:37)
[2021-01-10] MEDS: Nystatin Powder 15 GM BOTTLE 1 APPL TOPICAL ×2 (10:37→20:20)
--- NOTE | 2021-01-10 10:38 | PC.NURSE ---
pt has been pleasant, ate breakfast. nad.
[2021-01-10 14:02] VITALS: BP 146/79; PULSE 93; O2SAT 94
[2021-01-10 19:47] VITALS: BP 130/61; PULSE 78; RESP 18; TEMP 36.6; O2SAT 98
[2021-01-10] MEDS: Atorvastatin Calcium 20 MG TABLET PO (20:20)
[2021-01-10 22:00] VITALS: BP 136/59; PULSE 74; RESP 16; TEMP 36.7; O2SAT 96
[2021-01-11] VITALS (7 sets, daily range): BP systolic 129–147; BP diastolic 76–90; PULSE 74–100; RESP 16–20; TEMP 36.8–37.1; O2SAT 93–96
--- NOTE | 2021-01-11 02:59 | PC.NURSE ---
Pt moved into 18 for uninterrupted rest. Pt denies pain/discomfort at this time. Continue to monitor.
--- NOTE | 2021-01-11 03:13 | PC.NURSE ---
RT at bedside for CPAP.
[2021-01-11] MEDS: Montelukast Sodium 10 MG TABLET PO (08:21)
[2021-01-11] MEDS: Acetaminophen 325 MG TABLET 650 MG PO ×3 (08:21→22:30)
[2021-01-11] MEDS: Aspirin Enteric Coated 81 MG TABLET.DR PO (08:21)
[2021-01-11] MEDS: Nystatin Powder 15 GM BOTTLE 1 APPL TOPICAL (08:23)
--- NOTE | 2021-01-11 10:35 | PC.NURSE ---
Assisted pt with AM care and bed/linens changed. OOB to wheelchair. States 06/23 pain s/p tylenol given. In good spirits. States January 14 insurance will be accepted with hopes of rehab placement at that time
--- NOTE | 2021-01-11 11:08 | PC.NURSE ---
pt outside for fresh air with family member
--- NOTE | 2021-01-11 11:29 | PC.NURSE ---
physical therapy working with pt at this time
[2021-01-11] MEDS: Atorvastatin Calcium 20 MG TABLET PO (22:30)
--- NOTE | 2021-01-11 22:53 | MHC.CM.ED ---
CM met with patient. Pt is hopeful that he will have some STR bed offers once his insurance is active. Pt is aware that CM will re-refer to local SNF for STR on Thursday when insurance is active. Pt would like a local bed, but understands that may not be possible secondary to him not being vaccinated. CM will continue to follow for d/c needs.
[2021-01-12 01:51] VITALS: PULSE 93; RESP 16; O2SAT 95
[2021-01-12 04:11] VITALS: BP 136/74; PULSE 84; RESP 16; TEMP 36.6; O2SAT 94
--- NOTE | 2021-01-12 07:26 | PC.NURSE ---
report taken from altaf ruiz, pt aware of plan of care- denied having any questions. brittanie.
[2021-01-12 08:15] VITALS: RESP 18
[2021-01-12] MEDS: Aspirin Enteric Coated 81 MG TABLET.DR PO (09:20)
[2021-01-12] MEDS: Montelukast Sodium 10 MG TABLET PO (09:20)
[2021-01-12] MEDS: Acetaminophen 325 MG TABLET 650 MG PO ×2 (09:20→21:19)
[2021-01-12] MEDS: Benzonatate 100 MG CAPSULE PO (14:57)
[2021-01-12] MEDS: Atorvastatin Calcium 20 MG TABLET PO (21:19)
[2021-01-12] MEDS: Nystatin Powder 15 GM BOTTLE 1 APPL TOPICAL (21:22)
[2021-01-13 01:42] VITALS: BP 167/88; PULSE 91; RESP 16; TEMP 36.7; O2SAT 94
[2021-01-13 04:33] VITALS: BP 157/89; PULSE 89; RESP 18; TEMP 36.8; O2SAT 97
--- NOTE | 2021-01-13 07:13 | PC.NURSE ---
Report taken from Nathan METZGER. [facility] of plan[facility] PT denies complaints at this time, in no apparent distress.
[2021-01-13] MEDS: Albuterol Sulfate 90 MCG 8 GM INHALER 2 PUFF INHALE (08:24)
[2021-01-13] MEDS: Montelukast Sodium 10 MG TABLET PO (09:00)
[2021-01-13] MEDS: Aspirin Enteric Coated 81 MG TABLET.DR PO (09:00)
[2021-01-13] MEDS: Ibuprofen 600 MG TABLET PO (09:03)
[2021-01-13] MEDS: Acetaminophen 325 MG TABLET 650 MG PO (21:27)
[2021-01-13] MEDS: Atorvastatin Calcium 20 MG TABLET PO (21:27)
[2021-01-13] MEDS: Nystatin Powder 15 GM BOTTLE 1 APPL TOPICAL (21:27)
[2021-01-14] VITALS (7 sets, daily range): BP systolic 157; BP diastolic 89; PULSE 89–94; RESP 16–20; O2SAT 93–98
[2021-01-14] MEDS: Acetaminophen 325 MG TABLET 650 MG PO (09:17)
--- NOTE | 2021-01-14 09:17 | MHC.CM.ED ---
Patient remains in ER. Insurance is now traditional Medicare and [employer]. Referral re-broadcasted to 84 facilities. Still anticipate patient will be difficult to place due to weight and not receiving any Covid vaccines. Continue to monitor for d/c needs.
[2021-01-14] MEDS: Montelukast Sodium 10 MG TABLET PO (09:18)
[2021-01-14] MEDS: Aspirin Enteric Coated 81 MG TABLET.DR PO (09:18)
[2021-01-14] MEDS: Nystatin Powder 15 GM BOTTLE 1 APPL TOPICAL (09:19)
[2021-01-14] MEDS: Ibuprofen 600 MG TABLET PO (13:12)
--- NOTE | 2021-01-14 13:13 | PC.NURSE ---
patient medicated for pain, pt also requesting to see the provider for a loose tooth, will speak with a provider
--- NOTE | 2021-01-14 15:44 | PC.NURSE ---
patient a&ox3, talking on telephone, c/o mild pain- took ibuprofen earlier, will continue to monitor.
--- NOTE | 2021-01-14 20:51 | PC.NURSE ---
pt requesting to be wheeled to the [facility] in the lobby. [facility] nurse aware and will continue to monitor pt. Pt in NAD at this time.
[2021-01-14 22:48] LABS: Influenza A PCR NEGATIVE (Negative); Influenza B PCR NEGATIVE (Negative); Resp Syncy Virus RNA Qual PCR NEGATIVE (Negative); SARS COV2 PCR INHOUSE NEGATIVE (Negative)
[2021-01-15] MEDS: Atorvastatin Calcium 20 MG TABLET PO ×2 (00:22→00:24)
[2021-01-15] MEDS: Acetaminophen 325 MG TABLET 650 MG PO ×2 (00:23→08:16)
--- NOTE | 2021-01-15 01:29 | PC.NURSE ---
pt watching TV in w/c. pt in NAD. respirations easy, n/l. skin w/d. will continue to monitor pt.
[2021-01-15 03:59] VITALS: PULSE 90; RESP 16; O2SAT 92
--- NOTE | 2021-01-15 05:57 | PC.NURSE ---
PT SLEEPING WITH C-PAP ON. PT WAKES TO VOICE AND DENIES COMPLAINTS. WILL CONTINUE TO MONITOR PT.
[2021-01-15 06:00] VITALS: RESP 18; O2SAT 97
--- NOTE | 2021-01-15 06:55 | PC.NURSE ---
REPORT TO YASSINE BAUER
[2021-01-15] MEDS: Montelukast Sodium 10 MG TABLET PO (08:16)
[2021-01-15] MEDS: Aspirin Enteric Coated 81 MG TABLET.DR PO (08:16)
--- NOTE | 2021-01-15 08:42 | PC.NURSE ---
Assumed care of patient. Pt is awake, alert and oriented and is rolling around in a wheelchair. Pt given morning medications and pt is tolerating PO intake. Per case management, [facility]. Time pending
--- NOTE | 2021-01-15 10:00 | MHC.CM.ED ---
Patient remains in ER. Per [facility], patient can leave at 1pm. [facility] booked. [facility] with chart. Patient, YASSINE Wong and DR Jerome aware. Continue to monitor for d/c needs.
[2021-01-15 10:24] VITALS: O2SAT 97
[2021-01-15 11:44] VITALS: BP 122/54; PULSE 90; RESP 18; TEMP 37.1; O2SAT 96
--- NOTE | 2021-01-15 11:45 | PC.NURSE ---
report called to [facility] [phone] to [facility] nursing staff.
== END 2021-01-15 13:40 | disposition skilled nursing facility (03) ==
PROVIDERS: Emergency Medicine; Nurse Practitioner Family; Emergency Provider Student in an Organized Health Care Education/Training Program; PCP Internal Medicine
DX: S69.91XA Unspecified injury of right wrist, hand and finger(s), initial encounter (principal); M25.531 Pain in right wrist; R07.89 Other chest pain; W01.0XXA Fall on same level from slipping, tripping and stumbling without subsequent striking against object, initial encounter; Y93.9 Activity, unspecified; Y92.9 Unspecified place or not applicable; Y99.9 Unspecified external cause status; Z91.81 History of falling; Z20.822 Contact with and (suspected) exposure to COVID-19; Z87.891 Personal history of nicotine dependence; Z79.899 Other long term (current) drug therapy; Z23 Encounter for immunization
CPT/HCPCS: 0241U; 36415; 71045; 73110; 73564; 80048; 81003; 85025; 87635; 90471; 90686; 94640; 94660; 97110; 97116; 97162; 97166; 97530; 99285

== ENCOUNTER 2021-03-10 20:01 | Emergency (ER) | payer MEDICARE, MEDICAID, SELFPAY ==
--- NOTE | ~2021-03-10 | XR_ITS ---
EXAMINATION: XR CHEST CLINICAL INFORMATION: Chest pain COMPARISON: 12/17/2020 TECHNIQUE: Frontal view of the chest was obtained. FINDINGS: No significant abnormality is noted involving the heart, lungs, mediastinum, bony thorax or soft tissues. Heart size normal. No infiltrates, effusions or lung masses are seen. XR/XR chest 1V IMPRESSION: No acute intrathoracic disease
[2021-03-10 20:34] VITALS: BP 160/70; BP 166/80; PULSE 110; RESP 20; O2SAT 98; BMI 57.4
[2021-03-10 20:39] VITALS: BP 130/62; PULSE 100; RESP 18; TEMP 36.8; O2SAT 94
--- NOTE | 2021-03-10 20:40 | ECG_ITS ---
Test Reason : CARDIAC ARREST Blood Pressure : / mmHG Vent. Rate : 045 BPM Atrial Rate : 033 BPM P-R Int : 000 ms QRS Dur : 108 ms QT Int : 522 ms P-R-T Axes : 000 087 -47 degrees QTc Int : 451 ms Marked sinus bradycardia with A-V dissociation and Junctional rhythm with occasional Premature ventricular complexes with ventricular escape complexes Low voltage QRS ST elevation consider inferior injury or acute infarct ST elevation consider anterior injury or acute infarct ACUTE MA / STEMI Consider right ventricular involvement in acute inferior infarct Abnormal ECG When compared with ECG of 10-MAR-2021 20:50, Significant changes have occurred Referred By: Generic ED Physician Electronically Signed By:
--- NOTE | 2021-03-10 20:50 | ECG_ITS ---
Test Reason : CHEST PAIN Blood Pressure : / mmHG Vent. Rate : 099 BPM Atrial Rate : 099 BPM P-R Int : 150 ms QRS Dur : 070 ms QT Int : 346 ms P-R-T Axes : 065 051 065 degrees QTc Int : 444 ms Normal sinus rhythm Low voltage QRS Borderline ECG When compared with ECG of 13-NOV-2020 21:28, No significant change was found Referred By: Richie Rowell Electronically Signed By:Luis Mayo
--- NOTE | 2021-03-10 21:08 | ED_ITS ---
HPI - Chest Pain General Chief Complaint: Chest Pain Stated Complaint: CHEST PAIN Time Seen by Provider: 03/10/21 20:50 Source: patient Mode of arrival: EMS Limitations: no limitations History of Present Illness HPI narrative: 50-year-old female who presents emergency department for evaluation of left-sided chest pain. Patient states that he was watching television at 7:50 p.m. when he had a sudden onset of left-sided chest pain. Describes as a sharp, constant pain. States the pain was 8/10 at its worst. He states that the pain is currently 8/10. Pain did radiate down his left arm to his hand. States this left hand was numb in his left foot was numb as well. He states that he was diaphoretic and had associated nausea with no vomiting. He denied shortness of breath. He states he has had similar chest pain in the past. He states that he had a cardiac catheterization 4 years ago in [place] which he believes did not reveal any lesions that required stenting. He denies having heart attack in the past. The patient had a prolonged stay in the emergency department and was eventually placed at a long term facility. He states that he was released from the long term facility approximately 1 week prior and has been living at home with his mother. He states that he believes that he was released too early, the patient was there for rehab for left knee pain. He states that he was released early he accused the nurse of giving him the wrong medication ( Suboxone). He states that he needs a left knee replacement but elective surgeries are not being done secondary to the COVID-19 pandemic. Related Data Home Medications Medication Instructions Recorded Confirmed aspirin 81 mg tablet 81 mg PO DAILY 12/17/20 12/17/20 montelukast 10 mg tablet 10 mg PO DAILY 12/17/20 12/17/20 simvastatin 40 mg tablet 40 mg PO BEDTIME 12/17/20 12/17/20 Previous Rx's Medication Instructions Recorded albuterol sulfate 2.5 mg (3 mL) INHALATION Q4-6H PRN 11/01/20 #75 ml albuterol sulfate 90 mcg/actuation 2 puff INHALATION Q4-6H PRN #8.5 g 11/01/20 aerosol inhaler Allergies Allergy/AdvReac Type Severity Reaction Status Date / Time risperidone [Risperdal] Allergy Unknown hives/rash Verified 10/13/20 10:16 lisinopril Allergy Unknown Verified 12/17/20 01:39 nitroglycerin [NITROGLYCERIN] AdvReac Unknown SEVERE Verified 10/13/20 10:16 HYPOTENSION Review of Systems Review of Systems: Yes all other systems are reviewed and are negative [facility] Past Medical History Medical History Arthritis Asthma COPD (chronic obstructive pulmonary disease) DVT (deep venous thrombosis) HTN (hypertension) Sleep apnea Surgical History History of bowel resection Social History Social History Alcohol intake: never Patient Tobacco Use Status: Former Tobacco user Use of substances other than those prescribed or required for medical reasons: No Substance Use Type: Marijuana Advance Directives: No Physical Exam Vital Signs: Vital Signs: Last Vital Signs Temp 98.2 F 03/10/21 20:39 Pulse 90 03/11/21 01:00 Resp 16 03/11/21 01:00 BP 130/76 03/11/21 01:00 Pulse Ox 95 03/11/21 01:00 BMI result Body Mass Index 57.4 Const: Other: awake alert male, morbidly obese, he is pleasant and cooperative, he does not appear to be in distress, answers all questions appropriately HENMT: Head: Yes normal to inspection, Yes normocephalic and Yes atraumatic Ears: external ears normal General nose exam: Normal external nose present Face and sinus: Yes normal facial exam Mouth: Normal oral and palatal mucosa present Throat: Yes posterior oropharynx normal Eyes: General: appearance normal, both eyes and all related structures Pupils: Equal, round and reactive pupils present Neck: Neck: Yes normal visual inspection, Yes no lymphadenopathy, Yes trachea midline and Yes supple Chest: Chest palpation & inspection: normal inspection of the chest and tenderness ( moderate left anterior chest wall tenderness) Resp: Effort & Inspection: normal respiratory effort and able to speak in complete sentences Auscultation: clear to auscultation bilaterally Cardio: Rate: regular rate Rhythm: regular rhythm Heart sounds: S1 normal heart sound present, S2 normal heart sound present and no murmurs GI: Inspection: Yes normal to inspection and Yes obesity Palpation (GI): Soft to palpation, nontender and no guarding Auscultation: normal bowel sounds : General: Yes no CVA tenderness Back/Spine/Pelvis: Back: no CVA tenderness Skin: General skin exam: no rashes or lesions noted Neuro: Cranial nerves: Yes CN's II-XII intact bilaterally and Yes Equal, round and reactive pupils present Cognition (Neuro): normal cognition Motor exam (neuro): 5/5 motor strength present throughout Extrem: General: Yes normal to inspection Psych: Appearance: grossly normal Speech and movement: Normal speech and movement present Affect: normal affect Attitude: cooperative Thought process: Normal thought process present Thought content: Normal thought cont ent present Course Course Course Narrative: 50-year-old male who presents emergency department for evaluation of chest pain which began at 7:50 p.m. while he was at rest watching a movie. Patient did have associated nausea and diaphoresis with pain radiating down his left arm. The patient has had similar pain in the past. Vital signs were normal. Examination did reveal tenderness palpation of his left chest wall. Differential includes was not limited to costochondritis, acute coronary syndrome, pneumonia, angina. I ordered a laboratory evaluation to include EKG, chest x-ray, CBC, CMP, troponin. Patient was ordered to get Toradol 15 mg IV and Ativan 1 mg IV. 0154: Laboratory evaluation: The patient's initial high sensitivity troponin was 3.5. The 3 hour repeat high sensitive troponin was less than 3.5. At this time, I do not think that the patient's chest pain is secondary to acute c oronary syndrome or myocardial infarction I did discuss this with the patient. Patient did get improvement with Toradol but did require a dose of morphine mg IV as well. the patient was advised to take ibuprofen Tylenol for his pain. MDM - Chest Pain Lab Data Result diagrams: 03/10/21 22:00 03/10/21 22:00 Labs: Lab Results 03/10/21 03/10/21 03/10/21 Range/Units 22:00 22:00 22:00 WBC 8.3 (4.8-10.8) X10*3/uL RBC 4.74 (4.60-5.80) X10*6/uL Hgb 13.4 L (14.0-18.0) g/dl Hct 41.5 L (42.0-52.0) % MCV 87.6 (80.0-98.0) fL MCH 28.3 (27.0-33.0) pg MCHC 32.3 (31.0-36.0) g/dl RDW 13.0 (11.0-16.0) % Plt Count 273 (160-400) X10*3/uL MPV 9.3 L (9.4-12.4) fL Immature Gran % (Auto) 1.1 H (0.0-0.4) % Neut % (Auto) 64.5 (45-73) % Lymph % (Auto) 22.3 (20-40) % [place] % (Auto) 7.9 (2-11) % Eos % (Auto) 4.0 (0-4) % Baso % (Auto) 0.2 (0-2) % Lymph # (Auto) 1.9 (1.2-4.9) X10*3/uL [place] # (Auto) 0.7 (0.1-1.2) X10*3/uL Eos # (Auto) 0.3 (0.0-0.4) X10*3/uL Baso # (Auto) 0.0 (0.0-0.2) X10*3/uL Abs Immat Gran (auto) 0.09 H (0.00-0.03) X10*3/uL Absolute Neuts (auto) 5.4 (2.0-8.3) x10*3/uL Absolute Nucleated RBC 0.000 (0.0-0.012) X10*3/uL Nucleated RBC % (auto) 0.0 (0.0-0.2) /100WBC Sodium 140 (135-145) mmol/L Potassium 3.9 (3.3-5.1) mmol/L Chloride 103 (96-108) mmol/L Carbon Dioxide 27 (22-29) mmol/L Anion Gap 14 (12-20) BUN 12 (9-16) mg/dL Creatinine 0.84 (0.5-1.4) mg/dL Estim Creat Clear Calc 171.2 Estimated GFR > 60 Random Glucose 232 H (60-115) mg/dL Calcium 9.0 (8.4-10.2) mg/dL Total Bilirubin < 0.2 (0.0-1.0) mg/dL AST 44 H (5-37) U/L ALT 40 (0-40) U/L Alkaline Phosphatase 101 (39-117) U/L Troponin I High Sens 3.5 (<3.5-35.0) ng/L Total Protein 7.3 (6.5-8.0) g/dL Albumin 3.6 (3.5-5.0) g/dL COVID-19 (LEELEE) (Negative) COVID-19 Clin Com 03/10/21 03/11/21 Range/Units 22:00 00:57 WBC (4.8-10.8) X10*3/uL RBC (4.60-5.80) X10*6/uL Hgb (14.0-18.0) g/dl Hct (42.0-52.0) % MCV (80.0-98.0) fL MCH (27.0-33.0) pg MCHC (31.0-36.0) g/dl RDW (11.0-16.0) % Plt Count (160-400) X10*3/uL MPV (9.4-12.4) fL Immature Gran % (Auto) (0.0-0.4) % Neut % (Auto) (45-73) % Lymph % (Auto) (20-40) % [place] % (Auto) (2-11) % Eos % (Auto) (0-4) % Baso % (Auto) (0-2) % Lymph # (Auto) (1.2-4.9) X10*3/uL [place] # (Auto) (0.1-1.2) X10*3/uL Eos # (Auto) (0.0-0.4) X10*3/uL Baso # (Auto) (0.0-0.2) X10*3/uL Abs Immat Gran (auto) (0.00-0.03) X10*3/uL Absolute Neuts (auto) (2.0-8.3) x10*3/uL Absolute Nucleated RBC (0.0-0.012) X10*3/uL Nucleated RBC % (auto) (0.0-0.2) /100WBC Sodium (135-145) mmol/L Potassium (3.3-5.1) mmol/L Chloride (96-108) mmol/L Carbon Dioxide (22-29) mmol/L Anion Gap (12-20) BUN (9-16) mg/dL Creatinine (0.5-1.4) mg/dL Estim Creat Clear Calc Estimated GFR Random Glucose (60-115) mg/dL Calcium (8.4-10.2) mg/dL Total Bilirubin (0.0-1.0) mg/dL AST (5-37) U/L ALT (0-40) U/L Alkaline Phosphatase (39-117) U/L Troponin I High Sens < 3.5 (<3.5-35.0) ng/L Total Protein (6.5-8.0) g/dL Albumin (3.5-5.0) g/dL COVID-19 (LEELEE) Negative (Negative) COVID-19 Clin Com See Note ECG Data ECG #1: Attestation: I personally reviewed and interpreted this ECG as follows: Interpretation: 2127: Normal sinus rhythm rate of 99, normal MI interval, QRS duration and QTC interval, no ST segment elevation, no ST segment depression. Compared to EKG dated November 13, 2020, there is no change. Discharge Plan Discharge Clinical Impression: Chest pain, non-cardiac Patient Disposition: Home, Self-Care Instructions: Chest Pain (ED) Additional Instructions: Your laboratory evaluation, EKG and chest x-ray were unremarkable. Your pain is most likely caused by muscle pain Take ibuprofen 200 mg pills, 3 pills every 6 hours as needed for pain. Take Tylenol (acetaminophen) 500 mg pills, 2 pills every 4 to 6 hours as needed for pain. Follow-up with your doctor in 2 days. Please return to the emergency department if your symptoms get worse or if you develop any symptoms that are concerning to you. Prescriptions: No Action albuterol sulfate 90 mcg/actuation HFA aerosol inhaler 2 puff inhalation Q4-6H PRN (Reason: shortness of breath or wheezing) Qty: 8.5 RF: 0 albuterol sulfate 2.5 mg /3 mL (0.083 %) solution for nebulization 2.5 mg inhalation Q4-6H PRN (Reason: shortness of breath or wheezing) Qty: 75 RF: 0 simvastatin 40 mg Tablet 40 mg PO BEDTIME RF: 0 montelukast 10 mg Tablet 10 mg PO DAILY RF: 0 aspirin 81 mg Tablet 81 mg PO DAILY RF: 0
[2021-03-10] MEDS: Ketorolac Tromethamine 30 MG/ML VIAL 15 MG IVPUSH (21:56)
[2021-03-10] MEDS: LORazepam 2 MG/ML VIAL 1 MG IVPUSH (21:56)
--- NOTE | 2021-03-10 22:03 | PC.NURSE ---
Ekg completed, pt on bedside monitors, medicated per mar.
[2021-03-10 22:04] LABS: MANUAL DIFF FLAG NO
[2021-03-10 22:05] LABS: Basophils Percent Auto 0.2 % (0-2); Eosinophils Absolute Auto 0.3 X10*3/uL (0.0-0.4); Hematocrit 41.5 % (42.0-52.0); Hemoglobin 13.4 g/dl (14.0-18.0); Imm Gran Abs Auto 0.09 X10*3/uL (0.00-0.03); Imm Gran Pct Auto 1.1 % (0.0-0.4); Lymphocytes Absolute Auto 1.9 X10*3/uL (1.2-4.9); Lymphocytes Percent Auto 22.3 % (20-40); Mean Corpuscular HGB Conc 32.3 g/dl (31.0-36.0); Mean Corpuscular Hemoglobin 28.3 pg (27.0-33.0); Mean Corpuscular Volume 87.6 fL (80.0-98.0); Mean Platelet Volume 9.3 fL (9.4-12.4); Monocytes Absolute Auto 0.7 X10*3/uL (0.1-1.2); Monocytes Percent Auto 7.9 % (2-11); Neutrophils Absolute Auto 5.4 x10*3/uL (2.0-8.3); Neutrophils Percent Auto 64.5 % (45-73); Platelet Count 273 X10*3/uL (160-400); Red Blood Count 4.74 X10*6/uL (4.60-5.80); White Blood Count 8.3 X10*3/uL (4.8-10.8)
[2021-03-10 22:24] LABS: Troponin-I High Sensitivity 3.5 ng/L (<3.5-35.0)
[2021-03-10 22:29] LABS: Alanine Aminotransferase 40 U/L (0-40); Albumin Level 3.6 g/dL (3.5-5.0); Alkaline Phosphatase 101 U/L (39-117); Anion Gap 14 (12-20); Aspartate Amino Transferase 44 U/L (5-37); Bilirubin Total < 0.2 mg/dL (0.0-1.0); Blood Urea Nitrogen 12 mg/dL (9-16); Carbon Dioxide 27 mmol/L (22-29); Chloride 103 mmol/L (96-108); Creatinine Clr Calc Pharmacy 171.2; Estimated Glomerular Filt Rate > 60; Glucose Random 232 mg/dL (60-115); Potassium 3.9 mmol/L (3.3-5.1); Sodium 140 mmol/L (135-145); Total Protein 7.3 g/dL (6.5-8.0)
[2021-03-10 22:47] LABS: COVID-19 Test Negative (Negative)
[2021-03-10 23:09] VITALS: RESP 20
[2021-03-10] MEDS: Morphine Sulfate 4 MG/ML CARTRIDGE IVPUSH (23:37)
--- NOTE | 2021-03-10 23:41 | PC.NURSE ---
pt a&o, no sob , pt report chest pain is decreasing, mediated per Mar. pt repositioned for comfort . provided a drink . no n/v at this time. no sign of distress
[2021-03-11 01:00] VITALS: BP 130/76; PULSE 90; RESP 16; O2SAT 95
[2021-03-11 01:25] LABS: Troponin-I High Sensitivity < 3.5 ng/L (<3.5-35.0)
== END 2021-03-11 02:14 | disposition home or self-care (01) ==
PROVIDERS: Emergency Provider Emergency Medicine Emergency Medical Services
DX: R07.89 Other chest pain (principal); Z20.822 Contact with and (suspected) exposure to COVID-19; I10 Essential (primary) hypertension; Z86.718 Personal history of other venous thrombosis and embolism
CPT/HCPCS: 36415; 71045; 80053; 84484; 85025; 87635; 93005; 96374; 96375; 99285; J1885; J2060; J2270

== ENCOUNTER 2021-03-19 19:59 | Emergency (ER) | payer MEDICARE, MEDICAID, SELFPAY ==
--- NOTE | ~2021-03-19 | XR_ITS ---
EXAMINATION: LEFT HIP, LEFT KNEE, LEFT ANKLE, LEFT FOOT, LEFT SHOULDER CLINICAL INFORMATION: Fall with pain COMPARISON: Left knee 12/20/2020, left tib-fib 10/13/2020 TECHNIQUE: 3 views left shoulder, 4 views left hip, 2 views left knee, 3 views left ankle, 3 views left foot FINDINGS: Shoulder: Some mild degenerative changes are present at the AC joint. No abnormal calcifications are seen. No fractures or dislocations. Left hip: Mild degenerative changes are present in both hips with supra-acetabular sclerosis and some minimal osteophyte formation. No hip fracture is seen. Left knee: Again seen are severe degenerative changes in the left knee involving all compartments with intra-articular free osseous bodies. An acute fracture is not seen. No interval change since the 12/20/2020 study. Left ankle and foot: Ankle fracture is not seen. Soft tissue swelling, fractures or joint space widening is seen. No evidence of acute traumatic osseous injury in the foot. XR/XR knee LT 2V IMPRESSION: No evidence of an acute osseous injury involving the left shoulder, left hip, left knee, left ankle or left foot. Mild degenerative change present in the AC joint and hip with severe tricompartmental degenerative change in the knee as described above
--- NOTE | ~2021-03-19 | XR_ITS ---
EXAMINATION: LEFT HIP, LEFT KNEE, LEFT ANKLE, LEFT FOOT, LEFT SHOULDER CLINICAL INFORMATION: Fall with pain COMPARISON: Left knee 12/20/2020, left tib-fib 10/13/2020 TECHNIQUE: 3 views left shoulder, 4 views left hip, 2 views left knee, 3 views left ankle, 3 views left foot FINDINGS: Shoulder: Some mild degenerative changes are present at the AC joint. No abnormal calcifications are seen. No fractures or dislocations. Left hip: Mild degenerative changes are present in both hips with supra-acetabular sclerosis and some minimal osteophyte formation. No hip fracture is seen. Left knee: Again seen are severe degenerative changes in the left knee involving all compartments with intra-articular free osseous bodies. An acute fracture is not seen. No interval change since the 12/20/2020 study. Left ankle and foot: Ankle fracture is not seen. Soft tissue swelling, fractures or joint space widening is seen. No evidence of acute traumatic osseous injury in the foot. XR/XR ankle LT 2V IMPRESSION: No evidence of an acute osseous injury involving the left shoulder, left hip, left knee, left ankle or left foot. Mild degenerative change present in the AC joint and hip with severe tricompartmental degenerative change in the knee as described above
--- NOTE | ~2021-03-19 | XR_ITS ---
EXAMINATION: LEFT HIP, LEFT KNEE, LEFT ANKLE, LEFT FOOT, LEFT SHOULDER CLINICAL INFORMATION: Fall with pain COMPARISON: Left knee 12/20/2020, left tib-fib 10/13/2020 TECHNIQUE: 3 views left shoulder, 4 views left hip, 2 views left knee, 3 views left ankle, 3 views left foot FINDINGS: Shoulder: Some mild degenerative changes are present at the AC joint. No abnormal calcifications are seen. No fractures or dislocations. Left hip: Mild degenerative changes are present in both hips with supra-acetabular sclerosis and some minimal osteophyte formation. No hip fracture is seen. Left knee: Again seen are severe degenerative changes in the left knee involving all compartments with intra-articular free osseous bodies. An acute fracture is not seen. No interval change since the 12/20/2020 study. Left ankle and foot: Ankle fracture is not seen. Soft tissue swelling, fractures or joint space widening is seen. No evidence of acute traumatic osseous injury in the foot. XR/XR hip LT min 2V IMPRESSION: No evidence of an acute osseous injury involving the left shoulder, left hip, left knee, left ankle or left foot. Mild degenerative change present in the AC joint and hip with severe tricompartmental degenerative change in the knee as described above
--- NOTE | ~2021-03-19 | XR_ITS ---
EXAMINATION: LEFT HIP, LEFT KNEE, LEFT ANKLE, LEFT FOOT, LEFT SHOULDER CLINICAL INFORMATION: Fall with pain COMPARISON: Left knee 12/20/2020, left tib-fib 10/13/2020 TECHNIQUE: 3 views left shoulder, 4 views left hip, 2 views left knee, 3 views left ankle, 3 views left foot FINDINGS: Shoulder: Some mild degenerative changes are present at the AC joint. No abnormal calcifications are seen. No fractures or dislocations. Left hip: Mild degenerative changes are present in both hips with supra-acetabular sclerosis and some minimal osteophyte formation. No hip fracture is seen. Left knee: Again seen are severe degenerative changes in the left knee involving all compartments with intra-articular free osseous bodies. An acute fracture is not seen. No interval change since the 12/20/2020 study. Left ankle and foot: Ankle fracture is not seen. Soft tissue swelling, fractures or joint space widening is seen. No evidence of acute traumatic osseous injury in the foot. XR/XR foot LT 2V IMPRESSION: No evidence of an acute osseous injury involving the left shoulder, left hip, left knee, left ankle or left foot. Mild degenerative change present in the AC joint and hip with severe tricompartmental degenerative change in the knee as described above
--- NOTE | ~2021-03-19 | XR_ITS ---
EXAMINATION: LEFT HIP, LEFT KNEE, LEFT ANKLE, LEFT FOOT, LEFT SHOULDER CLINICAL INFORMATION: Fall with pain COMPARISON: Left knee 12/20/2020, left tib-fib 10/13/2020 TECHNIQUE: 3 views left shoulder, 4 views left hip, 2 views left knee, 3 views left ankle, 3 views left foot FINDINGS: Shoulder: Some mild degenerative changes are present at the AC joint. No abnormal calcifications are seen. No fractures or dislocations. Left hip: Mild degenerative changes are present in both hips with supra-acetabular sclerosis and some minimal osteophyte formation. No hip fracture is seen. Left knee: Again seen are severe degenerative changes in the left knee involving all compartments with intra-articular free osseous bodies. An acute fracture is not seen. No interval change since the 12/20/2020 study. Left ankle and foot: Ankle fracture is not seen. Soft tissue swelling, fractures or joint space widening is seen. No evidence of acute traumatic osseous injury in the foot. XR/XR shoulder LT min 2V IMPRESSION: No evidence of an acute osseous injury involving the left shoulder, left hip, left knee, left ankle or left foot. Mild degenerative change present in the AC joint and hip with severe tricompartmental degenerative change in the knee as described above
--- NOTE | ~2021-03-19 | CT_ITS ---
EXAMINATION: CT HEAD WITHOUT CONTRAST CT CERVICAL SPINE WITHOUT CONTRAST CLINICAL INFORMATION: Fall. Injury. COMPARISON: None. TECHNIQUE: Imaging was performed from the skull base to vertex without intravenous administration of contrast. In addition, helical noncontrast CT imaging was acquired through the cervical spine and source images were reviewed along with axial reconstructions and sagittal and coronal MPRs. [This CT examination was performed using dose optimization techniques as appropriate, variously including the following: *Automated exposure control *Adjustment of mA and/or kV according to patient size (this includes techniques or standardized protocols for targeted exams where dose is matched to indication/reason for exam; i.e. extremities or head) *Use of iterative reconstruction technique] DLP: 2147 mGy-cm FINDINGS: HEAD: No intracranial mass, hemorrhage, or midline shift is visualized. The ventricles and sulci are proportional. No extra-axial collections are identified. The paranasal sinuses and mastoid air cells are well aerated. CERVICAL SPINE: There is no evidence of acute cervical spine fracture. Vertebral bodies remain normal in height. Cervical vertebrae have normal alignment. There is mild multilevel degenerative spondylosis of the cervical spine with mild disc height narrowing and small vertebral endplate spurs from C3-C4 through C6-C7. Facet joints are normal. No pre- or paravertebral soft tissue abnormality is identified. Limited assessment of the lung apices is unremarkable. CT/CT head/brain wo con IMPRESSION: 1. No acute intracranial pathology. 2. No CT evidence of acute cervical spine fracture or traumatic subluxation
--- NOTE | ~2021-03-19 | CT_ITS ---
EXAMINATION: CT HEAD WITHOUT CONTRAST CT CERVICAL SPINE WITHOUT CONTRAST CLINICAL INFORMATION: Fall. Injury. COMPARISON: None. TECHNIQUE: Imaging was performed from the skull base to vertex without intravenous administration of contrast. In addition, helical noncontrast CT imaging was acquired through the cervical spine and source images were reviewed along with axial reconstructions and sagittal and coronal MPRs. [This CT examination was performed using dose optimization techniques as appropriate, variously including the following: *Automated exposure control *Adjustment of mA and/or kV according to patient size (this includes techniques or standardized protocols for targeted exams where dose is matched to indication/reason for exam; i.e. extremities or head) *Use of iterative reconstruction technique] DLP: 2147 mGy-cm FINDINGS: HEAD: No intracranial mass, hemorrhage, or midline shift is visualized. The ventricles and sulci are proportional. No extra-axial collections are identified. The paranasal sinuses and mastoid air cells are well aerated. CERVICAL SPINE: There is no evidence of acute cervical spine fracture. Vertebral bodies remain normal in height. Cervical vertebrae have normal alignment. There is mild multilevel degenerative spondylosis of the cervical spine with mild disc height narrowing and small vertebral endplate spurs from C3-C4 through C6-C7. Facet joints are normal. No pre- or paravertebral soft tissue abnormality is identified. Limited assessment of the lung apices is unremarkable. CT/CT cervical spine wo con IMPRESSION: 1. No acute intracranial pathology. 2. No CT evidence of acute cervical spine fracture or traumatic subluxation
[2021-03-19 20:15] VITALS: BP 104/85; BP 170/90; PULSE 98; RESP 20; TEMP 36.8; O2SAT 100; O2SAT 95; BMI 58.8
--- NOTE | 2021-03-19 21:23 | ED.FALL ---
HPI - Fall General Chief Complaint: Fall Stated Complaint: fall Time Seen by Provider: 03/19/21 21:16 Source: patient and EMS Mode of arrival: EMS Limitations: no limitations History of Present Illness HPI Narrative: 50-year-old male came in for evaluation after fall. Patient been having chronic left knee pain with occasional ?give out ?of the left knee causing multiple fall patient has been evaluated by Orthopedic and the plan was surgery that the was postponed due to the pandemic of COVID infection, described 2 mechanical falls today because his left knee gave out, patient is about 400 lb patient fell backward hit his head and neck, causing injury to the left shoulder, left hip, left knee, left ankle, and left foot. Patient declined LOC but complaining of severe headache, no photophobia, no blurry vision, patient also complained of neck pain with no extremities weakness or numbness. Related Data Home Medications Medication Instructions Recorded Confirmed aspirin 81 mg tablet 81 mg PO DAILY 12/17/20 12/17/20 montelukast 10 mg tablet 10 mg PO DAILY 12/17/20 12/17/20 simvastatin 40 mg tablet 40 mg PO BEDTIME 12/17/20 12/17/20 Previous Rx's Medication Instructions Recorded albuterol sulfate 2.5 mg (3 mL) INHALATION Q4-6H PRN 11/01/20 #75 ml albuterol sulfate 90 mcg/actuation 2 puff INHALATION Q4-6H PRN #8.5 g 11/01/20 aerosol inhaler Allergies Allergy/AdvReac Type Severity Reaction Status Date / Time risperidone [Risperdal] Allergy Unknown hives/rash Verified 10/13/20 10:16 lisinopril Allergy Unknown Verified 12/17/20 01:39 nitroglycerin [NITROGLYCERIN] AdvReac Unknown SEVERE Verified 10/13/20 10:16 HYPOTENSION Review of Systems Review of Systems: All other systems are reviewed and are negative Constitutional: Reports as per HPI and Reports no additional constitutional complaints Eyes: Reports as per HPI and Reports no additional eye complaints Reports system reviewed and no additional complaints, except as documented Cardiovascular: Reports as per HPI and Reports no additional cardiovascular complaints Respiratory: Reports as per HPI and Reports no additional respiratory complaints Gastrointestinal: Reports as per HPI and Reports no additional gastrointestinal complaints Genitourinary: Reports no additional female genitourinary complaints Musculoskeletal: Reports no additional musculoskeletal complaints Skin/Breast: Reports system reviewed and no additional complaints, except as docu Psychiatric: Reports no additional psychiatric complaints Endocrine: Reports no additional endocrine complaints Hematologic/Lymphatic: Reports no additional hematologic/lymphatic complaints Allergic/Immunologic: Reports no additional allergic/immunologic complaints Reports system reviewed and no additional complaints, except as documented and Reports Abnormal speech present [facility] Past Medical History Medical History Arthritis Asthma COPD (chronic obstructive pulmonary disease) DVT (deep venous thrombosis) HTN (hypertension) Sleep apnea Surgical History History of bowel resection Social History Social History Alcohol intake: never Patient Tobacco Use Status: Former Tobacco user Substance Use Type: Marijuana Advance Directives: No Physical Exam Vital Signs: Vital Signs: Last Vital Signs Temp 98.2 F 03/19/21 20:15 Pulse 98 03/19/21 20:15 Resp 20 03/19/21 20:15 BP 104/85 03/19/21 20:15 Pulse Ox 95 03/19/21 20:15 BMI result Body Mass Index 58.8 Vital signs have been reviewed as appeared to be correct. Blood pressure normal. Heart rate normal. Respiration rate normal. Temperature normal. Oxygen saturation normal. Appearance: Alert. Oriented X3. Morbid obesity that limit the physical exam, No acute distress. Head: Normal external exam. Normocephalic. Atraumatic. No Vilchis signs noted. No raccoon eyes noted, GCS of 15 Eyes: PERRLA. EOMI. Conjunctiva and sclera normal. Eyelids normal. ENT: TM's Normal. Pharynx normal. Uvula midline. Moist mucous membranes. No trismus noted. No drooling noted. No muffled voice noted. Neck: Normal inspection. Midline neck tenderness, no step-off, no deformity. No adenopathy. Thyroid Normal. No meningeal signs. No neck mass noted. CVS: Normal heart rate and rhythm. Heart sound normal. No murmurs noted. Pulses normal throughout. Respiratory: No respiratory distress. Painless inspiration. Breath sounds normal. No wheezes/rales/rhonchi noted. Chest nontender. No accessory muscle usage noted or decreased air movement noted. Abdomen: Soft and nontender, no rebound tenderness, no guarding, left anterior abdominal incisional hernia noted, old surgical midline abdominal scar also noted, Bowel sounds normal in all 4 quadrants. No distention noted. No organomegaly noted. No visible injury noted. Back: No CVA tenderness. Full range of motion noted. Skin: Skin warm and dry. Normal skin color. Normal skin turgor. No rashes/lesions/lacerations noted. Extremities: Left shoulder exam:, tenderness, without notable deformity or step-off, limited range motion due to pain. Left hip exam: Tender to palpation, no deformity is appreciated. Left knee exam: Normal integrity, tender to touch, no deformity. Left ankle and foot: No notable deformity but diffuse tenderness to touch Neuro: Oriented X 3. Cranial nerve exam: II-XII are grossly intact No motor deficit. No sensory deficit. Reflexes normal. Course Course Course Narrative: Assessment and plan. 50-year-old male status post multiple mechanical fall due to severe left knee osteoarthritis, patient is awaiting for orthopedic surgery that was postponed due to the COVID pandemic. Or radiographic studies done today is unremarkable for acute fracture, or serious injuries. Patient is requesting to go to rehab because his concern of recurrent falling at home. Will provide NSAIDs, PT evaluation in a.m., social media senior associate consult for placement. Reevaluation(s) Reevaluation #1: Physician observation started at 23:00 . Patient placed in physician observation because the patient needed more time for medication to work and to see PT/case management for evaluation and the need for placement patient's vital sign were stable, patient is alert and oriented , neuro exam unchanged, unremarkable rest of physical exam. MDM - Fall Medical Records Attestation: I reviewed the patient's medical records. Imaging Data Head CT: Attestation: I personally reviewed and interpreted this imaging study as follows: Radiologist's impression: No acute intracranial pathology. Cervical spine CT: Attestation: I personally reviewed and interpreted this imaging study as follows: Radiologist's impression: No C-spine fracture or subluxation. Left shoulder x-ray: Attestation: I personally reviewed and interpreted this imaging study as follows: Radiologist's impression: No fracture dislocation. Left hip x-ray: Attestation: I personally reviewed and interpreted this imaging study as follows: Radiologist's impression: No fracture or dislocation Left knee x-ray: Attestation: I personally reviewed and interpreted this imaging study as follows: Radiologist's impression: Severe osteoarthritis Left foot and ankle x-ray: Attestation: I personally reviewed and interpreted this imaging study as follows: Radiologist's impression: No acute fracture subluxation. Discharge Plan Discharge Clinical Impression: Falls frequently, Contusion, Closed head injury, Osteoarthritis Prescriptions: No Action albuterol sulfate 90 mcg/actuation HFA aerosol inhaler 2 puff inhalation Q4-6H PRN (Reason: shortness of breath or wheezing) Qty: 8.5 RF: 0 albuterol sulfate 2.5 mg /3 mL (0.083 %) solution for nebulization 2.5 mg inhalation Q4-6H PRN (Reason: shortness of breath or wheezing) Qty: 75 RF: 0 simvastatin 40 mg Tablet 40 mg PO BEDTIME RF: 0 montelukast 10 mg Tablet 10 mg PO DAILY RF: 0 aspirin 81 mg Tablet 81 mg PO DAILY RF: 0
[2021-03-19] MEDS: Ibuprofen 800 MG TABLET PO (21:59)
--- NOTE | 2021-03-19 22:00 | PC.NURSE ---
pt medicated per may. Warm blanket given to pt.
--- NOTE | 2021-03-19 22:56 | MHC.CM.ED ---
CM met with pt recently d/c from [facility] on 03/05/21. Pt has been home for approx 1 week. Pt is staying in his mother's apartment. States apartment is too small and [place] is not handicapped accessible. Pt had 2 falls in [place]. Pt has severe osteoarthritis in his L knee. Has knee brace and wheeled walker. Pt does not have a PCP. Per D/C instructions, pt was referred to [facility] for PT/OT/HAND SPRING REPAIRER/ RN. Pt states they have not called him. HCP is his sister Bibiana Arevalo in [place] ([phone]). Pt states he received 2 covid shots while in rehab, however this is not documented on his D/C paperwork. Will need to verify [facility] services (? since pt does not have a PCP) and vaccination status with [facility] in the morning. Pt is obese, weighing approximately 409 lbs. PT pending in the am. Last admission pt had extreme difficulty with STR placement secondary initially to insurance issues, and then due to being non-vaccinated and extreme obesity. No referrals placed at this time pending PT evaluation. D/C plan is home vs STR. Will need PCP appointment prior to D/C. CM to follow for d/c plans.
[2021-03-20 02:09] LABS: Influenza A PCR NEGATIVE (Negative); Influenza B PCR NEGATIVE (Negative); Resp Syncy Virus RNA Qual PCR NEGATIVE (Negative); SARS COV2 PCR INHOUSE NEGATIVE (Negative)
[2021-03-20 04:00] VITALS: RESP 18
[2021-03-20 06:00] VITALS: BP 108/64; PULSE 85; RESP 18; TEMP 36.4; O2SAT 95
[2021-03-20 08:32] VITALS: BP 147/79; PULSE 90; RESP 16; O2SAT 94
--- NOTE | 2021-03-20 09:56 | PHA.MEDREC ---
Pharmacy Consult ? Medication Reconciliation Pharmacy has completed the medication reconciliation. Patient russel a list of medictions from SNF. Reports all medications on the list he still takes at home. Cece Ford, KeyannaD
--- NOTE | 2021-03-20 12:47 | MHC.CM.ED ---
Patient remains in ER. Physical therapy eval completed. Short term rehab is being recommended. Patient was a difficult placement at last ER visit because of his weight and not being vaccinated. [facility]. They do not have a male bed available to offer. Referral broadcasted within 50 miles of [place] to all facilities that can accept patients up to 500lbs. Continue to monitor for d/c needs.
[2021-03-20 15:07] VITALS: BP 147/78; PULSE 96; RESP 20; TEMP 36.7; O2SAT 95
[2021-03-20] MEDS: Chlorhexidine Gluc Oral Rinse 15 ML MOUTHWASH BUCCAL ×2 (15:10→21:09)
[2021-03-20] MEDS: Aspirin 81 MG TAB.CHEW PO (15:10)
[2021-03-20] MEDS: Docusate Sodium 100 MG CAPSULE 200 MG PO (15:10)
[2021-03-20] MEDS: Atorvastatin Calcium 20 MG TABLET PO (15:11)
[2021-03-20] MEDS: Montelukast Sodium 10 MG TABLET PO (15:11)
[2021-03-20 19:03] VITALS: PULSE 87; RESP 20; TEMP 36.9; O2SAT 95
--- NOTE | 2021-03-20 19:42 | PC.NURSE ---
Pt resting on stretcher in NAD, breathing with ease on RA, skin warm dry and normal in appearance for age and race. Pt aaox4, reports L knee pain, acute on chronic. Pt is awaiting CM placement. Pt stretcher in lowest locked position, rails raised, call guzman within reach.
[2021-03-20 21:09] VITALS: BP 137/82
--- NOTE | 2021-03-20 21:09 | PC.NURSE ---
PT GIVEN DINNER
[2021-03-20] MEDS: Acetaminophen 325 MG TABLET 650 MG PO (22:52)
[2021-03-20] MEDS: Lidocaine 4 % Patch ADH..PATCH 1 PATCH TRANSDERMA (22:52)
[2021-03-21 00:19] VITALS: BP 143/71; PULSE 95; RESP 20; O2SAT 96
[2021-03-21 03:20] VITALS: BP 140/78; PULSE 92; RESP 16; O2SAT 96
[2021-03-21 04:30] VITALS: RESP 20
[2021-03-21 07:15] VITALS: BP 118/54; PULSE 89; RESP 17; TEMP 36.9; O2SAT 95
[2021-03-21] MEDS: Chlorhexidine Gluc Oral Rinse 15 ML MOUTHWASH BUCCAL ×2 (10:25→22:24)
[2021-03-21] MEDS: Docusate Sodium 100 MG CAPSULE 200 MG PO (10:25)
[2021-03-21] MEDS: Aspirin 81 MG TAB.CHEW PO (10:26)
[2021-03-21] MEDS: Atorvastatin Calcium 20 MG TABLET PO (10:26)
[2021-03-21] MEDS: Montelukast Sodium 10 MG TABLET PO (10:26)
--- NOTE | 2021-03-21 10:57 | MHC.CM.ED ---
Addendum entered by Christina Barnett 03/21/21 11:56: 91 referrals have been made at this time. Original Note: Patient remains in ER. Per [facility], patient received 2 Pfizer vaccines while at their facility. Re-referred to local facilities. [facility], [facility], and all of the [place] facilities do not have bariatric beds to offer. [facility] may have a bed tomorrow. Continue to monitor for d/c needs.
[2021-03-21 14:08] VITALS: BP 146/78; PULSE 91; RESP 16; TEMP 36.7; O2SAT 95
[2021-03-21] MEDS: Fluticasone/Vilanterol 100/25 BLST.W.DEV 1 PUFF INHALE (14:13)
[2021-03-21 14:14] VITALS: PULSE 100; RESP 20; O2SAT 99
[2021-03-22 04:46] VITALS: BP 131/72; PULSE 91; RESP 20; O2SAT 97
--- NOTE | 2021-03-22 08:49 | MHC.CM.ED ---
Addendum entered by Christina Barnett 03/22/21 14:15: [facility] does not have a bed to offer. They are reaching out to their sister facilities. [facility] is still reviewing to see if they have a bed to offer. Original Note: Patient remains in ER. Waiting to hear if [facility] can offer a bed today. Continue to monitor for d/c needs.
[2021-03-22] MEDS: Docusate Sodium 100 MG CAPSULE 200 MG PO (09:12)
[2021-03-22] MEDS: Montelukast Sodium 10 MG TABLET PO (09:12)
[2021-03-22] MEDS: Chlorhexidine Gluc Oral Rinse 15 ML MOUTHWASH BUCCAL ×2 (09:13→22:24)
[2021-03-22] MEDS: Aspirin 81 MG TAB.CHEW PO (09:13)
[2021-03-22] MEDS: Fluticasone/Vilanterol 100/25 BLST.W.DEV 1 PUFF INHALE (09:13)
[2021-03-22] MEDS: Atorvastatin Calcium 20 MG TABLET PO (09:13)
--- NOTE | 2021-03-22 10:40 | PC.NURSE ---
Pt is alert/oriented. Uses cpap PRN for sleeping. [facility] for potential [facility] today for rehab placement. Reports chronic knee pain. Ate breakfast and accepted AM meds
[2021-03-22 13:15] VITALS: BP 131/72; PULSE 91; O2SAT 97
[2021-03-22 20:00] VITALS: BP 128/77; PULSE 91; RESP 15; TEMP 36.7; O2SAT 97
[2021-03-22] MEDS: Nystatin Powder 15 GM BOTTLE 1 APPL TOPICAL (21:00)
[2021-03-22 21:13] LABS: Glucose, Whole Blood 291 mg/dL (60-115)
[2021-03-22 22:00] VITALS: BP 126/78; PULSE 87; RESP 15; TEMP 36.7; O2SAT 97
[2021-03-23 01:43] VITALS: PULSE 78; RESP 20; O2SAT 97
--- NOTE | 2021-03-23 04:16 | PC.NURSE ---
Patient complaining all night that he cant sleep in the hallway. Patient chose to sit in a wheelchair instead of using the bed in the hallway to get comfortable. Patient was loud and swearing in the hallway and being verbally aggresive towards staff. Security had to speak to patient 3 times this evening.
[2021-03-23] MEDS: Fluticasone/Vilanterol 100/25 BLST.W.DEV 1 PUFF INHALE (08:48)
[2021-03-23 08:50] VITALS: PULSE 93; RESP 20; O2SAT 97
[2021-03-23] MEDS: Aspirin 81 MG TAB.CHEW PO (10:35)
[2021-03-23] MEDS: Atorvastatin Calcium 20 MG TABLET PO (10:35)
[2021-03-23] MEDS: Montelukast Sodium 10 MG TABLET PO (10:36)
[2021-03-23] MEDS: Chlorhexidine Gluc Oral Rinse 15 ML MOUTHWASH BUCCAL ×2 (10:36→21:17)
[2021-03-23] MEDS: Docusate Sodium 100 MG CAPSULE 200 MG PO (10:36)
[2021-03-23 12:46] VITALS: PULSE 93; RESP 20; O2SAT 97
[2021-03-23] MEDS: Albuterol Sulfate (0.083%) 2.5 MG/3 ML VIAL.NEB INHALE (12:46)
[2021-03-23 15:05] VITALS: BP 123/77; PULSE 100; RESP 14; TEMP 36.8; O2SAT 95
[2021-03-23] MEDS: Nystatin Powder 15 GM BOTTLE 1 APPL TOPICAL ×2 (15:39→21:17)
--- NOTE | 2021-03-23 17:13 | PC.NURSE ---
in room 20 watching tv on/off and napping has had a few very loud phone conversations and needed to be reminded multiple times to decrease his volume, nystatin powder given to pt but he stated his rash was better and didn't appear that he planned to use it
--- NOTE | 2021-03-23 21:21 | PC.NURSE ---
pt given sandwich and a drink, medicated per Mar. emptied urinal and repositioned for comfort. Will continue to monitor.
[2021-03-23 23:27] VITALS: BP 115/84; PULSE 92; RESP 20; TEMP 37; O2SAT 95
[2021-03-24 00:41] VITALS: PULSE 96; RESP 18
[2021-03-24 05:51] VITALS: BP 133/89; PULSE 88; RESP 20; O2SAT 96
--- NOTE | 2021-03-24 06:33 | PC.NURSE ---
Assumed care of pt, received report from YASSINE Vance. Pt to overflow room w/ all belongings and CPAP at bedside. Pt in NAD, calm and cooperative, even and non-labored respirations noted. Awaiting placement via case management team
[2021-03-24 09:19] VITALS: BP 124/67; PULSE 97; RESP 16; O2SAT 96
[2021-03-24] MEDS: Acetaminophen 325 MG TABLET 650 MG PO (10:27)
[2021-03-24] MEDS: Aspirin 81 MG TAB.CHEW PO (10:28)
[2021-03-24] MEDS: Montelukast Sodium 10 MG TABLET PO (10:28)
[2021-03-24] MEDS: Atorvastatin Calcium 20 MG TABLET PO (10:28)
[2021-03-24] MEDS: Docusate Sodium 100 MG CAPSULE 200 MG PO (10:28)
--- NOTE | 2021-03-24 13:24 | MHC.CM.ED ---
Patient remains as ER case management consult. 91 referrals have been made. No bed offers have been made yet. Referrals sent to facilities still following: [place], [facility], [facility], [facility], [facility], [facility], [facility] and [facility]. Continue to monitor for d/c needs.
[2021-03-24 13:32] VITALS: BP 146/74; PULSE 91; RESP 16; TEMP 36.6; O2SAT 95
[2021-03-24] MEDS: Chlorhexidine Gluc Oral Rinse 15 ML MOUTHWASH BUCCAL (21:45)
[2021-03-24] MEDS: Nystatin Powder 15 GM BOTTLE 1 APPL TOPICAL (21:45)
[2021-03-24] MEDS: Benzonatate 100 MG CAPSULE PO (21:57)
[2021-03-24] MEDS: Lidocaine 4 % Patch ADH..PATCH 1 PATCH TRANSDERMA (21:58)
[2021-03-24 22:00] VITALS: BP 128/82; PULSE 92
[2021-03-24 23:26] VITALS: PULSE 95; RESP 20; O2SAT 96
[2021-03-25 04:39] VITALS: RESP 16
[2021-03-25 06:00] VITALS: BP 177/106; PULSE 91; TEMP 36.7; O2SAT 97
[2021-03-25 07:37] LABS: Glucose, Whole Blood 260 mg/dL (60-115)
[2021-03-25 08:48] VITALS: BP 134/93; PULSE 99; RESP 16; TEMP 36.3; O2SAT 96
[2021-03-25] MEDS: Nystatin Powder 15 GM BOTTLE 1 APPL TOPICAL (09:44)
[2021-03-25] MEDS: Docusate Sodium 100 MG CAPSULE 200 MG PO (09:44)
[2021-03-25] MEDS: Aspirin 81 MG TAB.CHEW PO (09:44)
[2021-03-25] MEDS: Chlorhexidine Gluc Oral Rinse 15 ML MOUTHWASH BUCCAL (09:44)
[2021-03-25] MEDS: Montelukast Sodium 10 MG TABLET PO (09:44)
[2021-03-25] MEDS: Atorvastatin Calcium 20 MG TABLET PO (09:44)
--- NOTE | 2021-03-25 09:46 | PC.NURSE ---
Pt received from weight shifter: Pt AOx4 and offers no complaints at this time. Heart sounds normal and lungs clear. Pt abd round, soft and non-tender. Pt unsteady on his feet and requires wheelchair to BR. Pending case management to place pt for bed search.
--- NOTE | 2021-03-25 09:50 | MHC.CM.ED ---
Patient currently in ED overflow. [facility] may be able to offer a bed today if repeat Covid test is negative. Repeat Covid swab ordered. Continue to monitor for d/c needs.
[2021-03-25] MEDS: Fluticasone/Vilanterol 100/25 BLST.W.DEV 1 PUFF INHALE (10:35)
[2021-03-25 11:41] LABS: Influenza A PCR NEGATIVE (Negative); Influenza B PCR NEGATIVE (Negative); Resp Syncy Virus RNA Qual PCR NEGATIVE (Negative); SARS COV2 PCR INHOUSE NEGATIVE (Negative)
--- NOTE | 2021-03-25 12:04 | MHC.CM.PN ---
DC PLAN IS FOR PT TO GO TO [facility] FOR STR TODAY PENDING NEGATIVE COVID TEST RESULTS PTS NEGATIVE COVID TEST RESULTS WERE SENT TO [facility] VIA [facility] WILL SEND NEXT AVAILABLE BLS
--- NOTE | 2021-03-25 13:47 | PC.NURSE ---
EMS at bedside now for pt transfer to [facility]
== END 2021-03-25 14:24 | disposition skilled nursing facility (03) ==
PROVIDERS: Physician Assistant Medical; Emergency Provider Emergency Medicine
DX: S00.03XA Contusion of scalp, initial encounter (principal); S09.90XA Unspecified injury of head, initial encounter; W01.0XXA Fall on same level from slipping, tripping and stumbling without subsequent striking against object, initial encounter; M17.12 Unilateral primary osteoarthritis, left knee; M25.562 Pain in left knee; M54.2 Cervicalgia; M25.512 Pain in left shoulder; M25.552 Pain in left hip; M25.572 Pain in left ankle and joints of left foot; M79.672 Pain in left foot; I10 Essential (primary) hypertension; Z91.81 History of falling; Z20.822 Contact with and (suspected) exposure to COVID-19; Y93.9 Activity, unspecified; Y92.9 Unspecified place or not applicable; Y99.9 Unspecified external cause status; F12.90 Cannabis use, unspecified, uncomplicated; Z86.718 Personal history of other venous thrombosis and embolism
CPT/HCPCS: 0241U; 70450; 72125; 73030; 73502; 73560; 73600; 73620; 82947; 94640; 94660; 97110; 97162; 99285

== ENCOUNTER 2021-05-07 20:32 | Emergency (ER) | payer MEDICARE, MEDICAID, SELFPAY ==
--- NOTE | ~2021-05-07 | XR_ITS ---
EXAMINATION: XR SHOULDER, RIGHT CLINICAL INFORMATION: Fall COMPARISON: None TECHNIQUE: Three views of the right shoulder. FINDINGS: No fracture or dislocation. The glenohumeral joint is well aligned. Small osteophytes present. Mild hypertrophic degenerative change of the acromioclavicular joint. Visualized lung is clear. The visualized ribs are intact. XR/XR shoulder RT min 2V IMPRESSION: No fracture or malalignment. Mild degenerative changes.
[2021-05-07 20:53] VITALS: BP 122/82; BP 152/93; PULSE 95; PULSE 96; RESP 18; TEMP 36.2; O2SAT 96; BMI 60.2
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
--- NOTE | 2021-05-07 22:44 | PHA.MEDREC ---
Pharmacy Consult ? Medication Reconciliation Pharmacy has completed the medication reconciliation.
[2021-05-07] MEDS: oxyCODONE HCl Immed Release 5 MG TABLET 10 MG PO (22:46)
[2021-05-08] MEDS: metFORMIN HCl 1,000 MG TABLET 1000 MG PO ×3 (00:27→21:06)
[2021-05-08 00:35] LABS: MANUAL DIFF FLAG NO
[2021-05-08 00:36] LABS: Basophils Percent Auto 0.3 % (0-2); Eosinophils Absolute Auto 0.3 X10*3/uL (0.0-0.4); Eosinophils Percent Auto 2.6 % (0-4); Hematocrit 41.6 % (42.0-52.0); Hemoglobin 13.4 g/dl (14.0-18.0); Imm Gran Abs Auto 0.21 X10*3/uL (0.00-0.03); Imm Gran Pct Auto 2.1 % (0.0-0.4); Mean Corpuscular HGB Conc 32.2 g/dl (31.0-36.0); Mean Corpuscular Volume 86.8 fL (80.0-98.0); Mean Platelet Volume 9.2 fL (9.4-12.4); Monocytes Absolute Auto 0.6 X10*3/uL (0.1-1.2); Monocytes Percent Auto 6.4 % (2-11); Neutrophils Absolute Auto 6.7 x10*3/uL (2.0-8.3); Neutrophils Percent Auto 68.6 % (45-73); Platelet Count 287 X10*3/uL (160-400); Red Blood Count 4.79 X10*6/uL (4.60-5.80); Red Cell Distribution Width 13.1 % (11.0-16.0); White Blood Count 9.8 X10*3/uL (4.8-10.8)
[2021-05-08 00:37] VITALS: BP 127/74; PULSE 94; RESP 18; TEMP 36.8; O2SAT 94
[2021-05-08 00:48] LABS: COVID-19 Test Negative (Negative)
[2021-05-08 00:54] LABS: Ethanol < 10 mg/dL
[2021-05-08 00:58] LABS: Alanine Aminotransferase 42 U/L (0-40); Albumin Level 3.8 g/dL (3.5-5.0); Alkaline Phosphatase 97 U/L (39-117); Anion Gap 12 (12-20); Aspartate Amino Transferase 51 U/L (5-37); Bilirubin Total 0.4 mg/dL (0.0-1.0); Blood Urea Nitrogen 13 mg/dL (9-16); Calcium 9.4 mg/dL (8.4-10.2); Carbon Dioxide 30 mmol/L (22-29); Chloride 98 mmol/L (96-108); Creatinine Clr Calc Pharmacy 195.1; Estimated Glomerular Filt Rate > 60; Glucose Random 211 mg/dL (60-115); Potassium 4.3 mmol/L (3.3-5.1); Sodium 136 mmol/L (135-145); Total Protein 7.4 g/dL (6.5-8.0)
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
[2021-05-08 05:58] VITALS: PULSE 84; O2SAT 94
[2021-05-08 07:39] LABS: Glucose, Whole Blood 183 mg/dL (60-115)
[2021-05-08] MEDS: Insulin Lispro 100 UNIT/ML 3 ML VIAL SUBCUT ×4 (08:20→21:06)
[2021-05-08] MEDS: Atorvastatin Calcium 20 MG TABLET PO (08:21)
[2021-05-08] MEDS: Aspirin 81 MG TAB.CHEW PO (08:21)
[2021-05-08] MEDS: Loratadine 10 MG TABLET PO (08:21)
[2021-05-08] MEDS: Chlorhexidine Gluc Oral Rinse 15 ML MOUTHWASH BUCCAL ×2 (08:21→21:06)
[2021-05-08] MEDS: Montelukast Sodium 10 MG TABLET PO (08:22)
[2021-05-08 08:24] VITALS: BP 144/81; PULSE 92; RESP 20; O2SAT 95
[2021-05-08] MEDS: Fluticasone/Vilanterol 100/25 BLST.W.DEV 1 PUFF INHALE (08:58)
[2021-05-08 09:00] VITALS: PULSE 92; RESP 20; O2SAT 94
--- NOTE | 2021-05-08 12:12 | MHC.CM.ED ---
Addendum entered by Christina Barnett 05/08/21 15:18: Met with patient to explain [facility] will not accept patient back and referral has been broadcasted. Patient verbalizes understanding. Original Note: Received case management consult overnight. Patient was at [facility]. Patient was sent to [facility] ER via EMS under section 12. Patient requested to come to [facility] ER. So EMS brought patient here. Patient was cleared by the Care team from needing inpatient psych. [facility] is not willing to accept patient back. Sabra Zamora, director of Case Management aware. Patient received 2 Vaccines in February 2021. Patient is well known to case management. Patient will be difficult to place due to weight and now behaviors. Referral broadcasted within 50 miles of hospital at this time. Continue to monitor for d/c needs.
[2021-05-08 12:24] LABS: Glucose, Whole Blood 190 mg/dL (60-115)
[2021-05-08 12:48] LABS: Amphetamine Screen Urine Not Detected (Not Detect); Barbiturates, Urine Not Detected (Not Detect); Benzodiazepines Screen Urine Not Detected (Not Detect); Cannabinoid Screen Urine POSITIVE (Not Detect); Cocaine Screen Urine Not Detected (Not Detect); Fentanyl, urine Not Detected (Not Detect); Opiate Screen Urine Not Detected (Not Detect); Phencyclidine Screen Urine Not Detected (Not Detect)
[2021-05-08 17:11] VITALS: RESP 20
[2021-05-08 17:58] LABS: Glucose, Whole Blood 188 mg/dL (60-115)
[2021-05-08 21:03] LABS: Glucose, Whole Blood 268 mg/dL (60-115)
[2021-05-08] MEDS: oxyCODONE HCl Immed Release 5 MG TABLET 10 MG PO (21:06)
[2021-05-08] MEDS: Docusate Sodium 100 MG CAPSULE PO (21:43)
[2021-05-09 05:13] VITALS: BP 128/76; PULSE 84; RESP 16; TEMP 36.6
[2021-05-09 05:14] VITALS: PULSE 92; RESP 20; O2SAT 95
[2021-05-09 07:28] LABS: Glucose, Whole Blood 239 mg/dL (60-115)
[2021-05-09] MEDS: Insulin Lispro 100 UNIT/ML 3 ML VIAL SUBCUT ×4 (07:37→21:33)
[2021-05-09] MEDS: Fluticasone/Vilanterol 100/25 BLST.W.DEV 1 PUFF INHALE (08:23)
[2021-05-09 08:25] VITALS: PULSE 92; RESP 16; RESP 17; O2SAT 95
[2021-05-09 09:14] VITALS: BP 129/61; PULSE 85; RESP 16; O2SAT 95
--- NOTE | 2021-05-09 09:47 | MHC.CM.ED ---
Patient remains in ER. No bed offers made at this time. Referral broadcasted within 100 miles. 337 referrals have been made. Continue to monitor for d/c needs.
[2021-05-09] MEDS: Chlorhexidine Gluc Oral Rinse 15 ML MOUTHWASH BUCCAL ×2 (10:00→20:00)
[2021-05-09] MEDS: Loratadine 10 MG TABLET PO (10:00)
[2021-05-09] MEDS: Docusate Sodium 100 MG CAPSULE PO ×2 (10:01→20:01)
[2021-05-09] MEDS: metFORMIN HCl 1,000 MG TABLET 1000 MG PO ×2 (10:01→20:18)
[2021-05-09] MEDS: Atorvastatin Calcium 20 MG TABLET PO (10:01)
[2021-05-09] MEDS: Montelukast Sodium 10 MG TABLET PO (10:01)
[2021-05-09] MEDS: Aspirin 81 MG TAB.CHEW PO (10:01)
[2021-05-09] MEDS: oxyCODONE HCl Immed Release 5 MG TABLET 10 MG PO ×2 (10:14→20:01)
[2021-05-09 12:10] VITALS: BP 152/74; PULSE 92; RESP 16; TEMP 36.9; O2SAT 94
[2021-05-09 12:15] LABS: Glucose, Whole Blood 285 mg/dL (60-115)
[2021-05-09 18:23] LABS: Glucose, Whole Blood 212 mg/dL (60-115)
[2021-05-09 20:15] VITALS: BP 150/54; PULSE 89; RESP 20; TEMP 37; O2SAT 96
[2021-05-09 20:52] LABS: Glucose, Whole Blood 257 mg/dL (60-115)
[2021-05-10 00:29] VITALS: PULSE 90; RESP 21; O2SAT 94
[2021-05-10 04:00] VITALS: PULSE 97; RESP 22; O2SAT 96
[2021-05-10 06:00] VITALS: RESP 14; O2SAT 96
[2021-05-10 07:39] LABS: Glucose, Whole Blood 230 mg/dL (60-115)
[2021-05-10] MEDS: Chlorhexidine Gluc Oral Rinse 15 ML MOUTHWASH BUCCAL ×2 (07:54→21:28)
[2021-05-10] MEDS: Atorvastatin Calcium 20 MG TABLET PO (07:55)
[2021-05-10] MEDS: Docusate Sodium 100 MG CAPSULE PO ×2 (07:55→21:28)
[2021-05-10] MEDS: Insulin Lispro 100 UNIT/ML 3 ML VIAL SUBCUT ×4 (07:55→21:37)
[2021-05-10] MEDS: Loratadine 10 MG TABLET PO (07:55)
[2021-05-10] MEDS: Montelukast Sodium 10 MG TABLET PO (07:55)
[2021-05-10] MEDS: metFORMIN HCl 1,000 MG TABLET 1000 MG PO ×2 (07:56→21:28)
[2021-05-10] MEDS: Aspirin 81 MG TAB.CHEW PO (07:56)
[2021-05-10 08:42] VITALS: PULSE 76; RESP 18; O2SAT 93
[2021-05-10] MEDS: oxyCODONE HCl Immed Release 5 MG TABLET 10 MG PO ×2 (10:14→19:12)
[2021-05-10] MEDS: Acetaminophen 325 MG TABLET 975 MG PO (10:14)
[2021-05-10 12:46] LABS: Glucose, Whole Blood 269 mg/dL (60-115)
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
[2021-05-10] MEDS: guaiFENesin 200 MG/10 ML 10 ML LIQUID PO (15:41)
[2021-05-10 18:37] LABS: Glucose, Whole Blood 207 mg/dL (60-115)
[2021-05-10 21:37] LABS: Glucose, Whole Blood 284 mg/dL (60-115)
--- NOTE | 2021-05-10 21:40 | PC.NURSE ---
pt sitting in w/c coloring and giving pictures to staff. pt eating cereal and denies any complaints. respirations easy, n/l. skin w/d. will continue to monitor pt.
[2021-05-10 22:30] VITALS: BP 150/84; PULSE 99; TEMP 36.9; O2SAT 95
[2021-05-11] VITALS (7 sets, daily range): BP systolic 134–150; BP diastolic 67–90; PULSE 77–97; RESP 18–24; TEMP 36.3–36.6; O2SAT 93–97
[2021-05-11] MEDS: Albuterol Sulfate 90 MCG 8 GM INHALER 2 PUFF INHALE (00:08)
--- NOTE | 2021-05-11 03:39 | PC.NURSE ---
no chg in pt's condition. pt sleeping, wakes to voice, respirations easy, n/l. skin w/d. will continue to monitor pt.
--- NOTE | 2021-05-11 04:39 | PC.NURSE ---
report called to YASSINE Valdez in overflow.
[2021-05-11] MEDS: metFORMIN HCl 1,000 MG TABLET 1000 MG PO (10:08)
[2021-05-11] MEDS: Montelukast Sodium 10 MG TABLET PO (10:08)
[2021-05-11] MEDS: Insulin Lispro 100 UNIT/ML 3 ML VIAL SUBCUT ×3 (10:08→18:14)
[2021-05-11] MEDS: Chlorhexidine Gluc Oral Rinse 15 ML MOUTHWASH BUCCAL (10:08)
[2021-05-11] MEDS: Loratadine 10 MG TABLET PO (10:09)
[2021-05-11] MEDS: Aspirin 81 MG TAB.CHEW PO (10:09)
[2021-05-11] MEDS: Docusate Sodium 100 MG CAPSULE PO (10:09)
[2021-05-11] MEDS: Atorvastatin Calcium 20 MG TABLET PO (10:09)
--- NOTE | 2021-05-11 10:15 | PC.NURSE ---
pt a&ox4, vss, medicated per provider order - pt asleep, so medications were administered once pt woke, reporting 7/10 pain - but otherwise doing well, denies sob. case management in room discussing trying to find placement.
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
[2021-05-11] MEDS: oxyCODONE HCl Immed Release 5 MG TABLET 10 MG PO (10:34)
--- NOTE | 2021-05-11 10:35 | PC.NURSE ---
pt medicated for 710 knee pain
--- NOTE | 2021-05-11 11:38 | PC.NURSE ---
pt a&ox4, sitting in bed watching TV, coloring, vss, denies SOB, decrease in pain to pt baseline (06/23), will continue to monitor.
--- NOTE | 2021-05-11 11:52 | PC.NURSE ---
pt reported some sweating and increased dizziness on pt arrival, vss, check POC (270), episode resolved, pt no longer symptomatic.
--- NOTE | 2021-05-11 14:47 | PC.NURSE ---
pt a&ox4, watching television, sitting in wheelchair, will continue to monitor.
--- NOTE | 2021-05-11 18:15 | PC.NURSE ---
pt medicated per order
--- NOTE | 2021-05-11 19:02 | PC.NURSE ---
pt a&ox4, vss, watching television, waiting for case mgmt placement.
[2021-05-11 22:27] LABS: Glucose, Whole Blood 293 mg/dL (60-115)
--- NOTE | 2021-05-11 23:25 | PC.NURSE ---
pt's meds were unable to scan from the MAY. Wristband scanned would recognize pt as valid but each subsequent scan per med didn't show up. No errors, just would not recognize the medication as documented. This RN rebooted computer and used two additional computers to attempt to scan the patient's meds. Printed out a new wristband and the same issue occured. All 21:00 meds given. POC was 293, 6 unites of Insulin Lispro given for coverage. Corporate Accounting Manager aware, ED computer numerical control operator aware.
--- NOTE | 2021-05-12 00:13 | PC.NURSE ---
concerning the MAR; This RN was unable to chart against the medications. While clicking each med and it's corresponding time, no option for done/not done is shown. the box acts as a link.
[2021-05-12 06:00] VITALS: BP 140/70; PULSE 93; RESP 20; TEMP 36.7; O2SAT 97
[2021-05-12 08:44] LABS: Glucose, Whole Blood 248 mg/dL (60-115)
[2021-05-12] MEDS: Montelukast Sodium 10 MG TABLET PO (09:23)
[2021-05-12] MEDS: Aspirin 81 MG TAB.CHEW PO (09:23)
[2021-05-12] MEDS: metFORMIN HCl 1,000 MG TABLET 1000 MG PO ×2 (09:23→20:59)
[2021-05-12] MEDS: Docusate Sodium 100 MG CAPSULE PO ×2 (09:23→20:59)
[2021-05-12] MEDS: Chlorhexidine Gluc Oral Rinse 15 ML MOUTHWASH BUCCAL ×2 (09:23→20:59)
[2021-05-12] MEDS: Loratadine 10 MG TABLET PO (09:23)
[2021-05-12] MEDS: Insulin Lispro 100 UNIT/ML 3 ML VIAL SUBCUT ×4 (09:23→20:59)
[2021-05-12] MEDS: Atorvastatin Calcium 20 MG TABLET PO (09:23)
[2021-05-12 13:44] LABS: Glucose, Whole Blood 222 mg/dL (60-115)
[2021-05-12] MEDS: oxyCODONE HCl Immed Release 5 MG TABLET 10 MG PO (13:59)
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
[2021-05-12] MEDS: hydrOXYzine HCL 50 MG TABLET PO (16:11)
--- NOTE | 2021-05-12 17:11 | PC.NURSE ---
Assumed care of pt at 0700. Pt slept until approximately 0900, insulin given and breakfast at that time. Pt is A&Ox3, asking for inappropriate things in overflow such as a mini fridge, fire stick for the TV. Explained to pt this is a temporary patient area and these are not requests we can accomadate. Pt offers no complaints throughout the shift. Call guzman within reach. Will continue to monitor.
[2021-05-12 18:29] LABS: Glucose, Whole Blood 224 mg/dL (60-115)
[2021-05-12 20:47] LABS: Glucose, Whole Blood 348 mg/dL (60-115)
[2021-05-12 22:52] VITALS: BP 114/56; PULSE 96; RESP 22; TEMP 531.6; TEMP 989; O2SAT 94
[2021-05-13 02:45] VITALS: PULSE 87; RESP 18; O2SAT 94
[2021-05-13 06:32] LABS: Glucose, Whole Blood 270 mg/dL (60-115)
[2021-05-13 06:32] LABS: Glucose, Whole Blood 178 mg/dL (60-115)
[2021-05-13 06:32] LABS: Glucose, Whole Blood 241 mg/dL (60-115)
[2021-05-13 06:32] LABS: Glucose, Whole Blood 230 mg/dL (60-115)
--- NOTE | 2021-05-13 07:12 | PC.NURSE ---
Patient requested to wear cpap at 1:15am - wore until approx 0600. Patient tolerated. No distress. Denied pain. Slept on and off.
[2021-05-13 07:28] LABS: Glucose, Whole Blood 244 mg/dL (60-115)
[2021-05-13] MEDS: Insulin Lispro 100 UNIT/ML 3 ML VIAL SUBCUT ×4 (07:51→21:33)
[2021-05-13] MEDS: Chlorhexidine Gluc Oral Rinse 15 ML MOUTHWASH BUCCAL ×2 (07:51→21:34)
[2021-05-13] MEDS: Docusate Sodium 100 MG CAPSULE PO ×2 (07:51→21:33)
[2021-05-13] MEDS: Atorvastatin Calcium 20 MG TABLET PO (07:52)
[2021-05-13] MEDS: metFORMIN HCl 1,000 MG TABLET 1000 MG PO ×2 (07:52→21:33)
[2021-05-13] MEDS: Montelukast Sodium 10 MG TABLET PO (07:52)
[2021-05-13] MEDS: Aspirin 81 MG TAB.CHEW PO (07:52)
[2021-05-13] MEDS: Loratadine 10 MG TABLET PO (07:52)
--- NOTE | 2021-05-13 07:54 | PC.NURSE ---
Pt A&Ox4, no complaints of pain at this time. LCA, wearing CPAP at this time as he is still sleeping. Medicated as per MAR orders. Call guzman within reach. Will continue to monitor.
[2021-05-13] MEDS: Fluticasone/Vilanterol 100/25 BLST.W.DEV 1 PUFF INHALE (08:17)
[2021-05-13 08:19] VITALS: PULSE 92; RESP 20; O2SAT 96
[2021-05-13 08:20] VITALS: PULSE 92; RESP 20; O2SAT 96
[2021-05-13 08:59] VITALS: BP 134/65; PULSE 84; RESP 20; TEMP 37.1; O2SAT 98
[2021-05-13 11:50] LABS: Glucose, Whole Blood 189 mg/dL (60-115)
--- NOTE | 2021-05-13 12:42 | MHC.CM.ED ---
tuan Mace remains in ER overflow. 337 referrals have been sent. No bed offers have been made yet. T/W spoke with Soto at [facility]. Clinical information faxed. Continue to monitor for d/c needs.
[2021-05-13] MEDS: Ibuprofen 800 MG TABLET PO (13:59)
[2021-05-13 18:04] LABS: Glucose, Whole Blood 207 mg/dL (60-115)
[2021-05-13 21:05] LABS: Glucose, Whole Blood 251 mg/dL (60-115)
[2021-05-14 00:14] VITALS: PULSE 88; RESP 20; O2SAT 95
[2021-05-14] MEDS: Fluticasone/Vilanterol 100/25 BLST.W.DEV 1 PUFF INHALE (08:03)
[2021-05-14 08:05] VITALS: PULSE 92; RESP 18; O2SAT 92
[2021-05-14 08:59] LABS: Glucose, Whole Blood 217 mg/dL (60-115)
[2021-05-14] MEDS: Lidocaine 4 % Patch ADH..PATCH 1 PATCH TRANSDERMA (09:04)
[2021-05-14] MEDS: metFORMIN HCl 1,000 MG TABLET 1000 MG PO ×2 (09:05→21:38)
[2021-05-14] MEDS: Montelukast Sodium 10 MG TABLET PO (09:05)
[2021-05-14] MEDS: Atorvastatin Calcium 20 MG TABLET PO (09:05)
[2021-05-14] MEDS: Chlorhexidine Gluc Oral Rinse 15 ML MOUTHWASH BUCCAL ×2 (09:05→21:38)
[2021-05-14] MEDS: Loratadine 10 MG TABLET PO (09:05)
[2021-05-14] MEDS: Aspirin 81 MG TAB.CHEW PO (09:05)
[2021-05-14] MEDS: Ibuprofen 800 MG TABLET PO (09:05)
[2021-05-14] MEDS: Docusate Sodium 100 MG CAPSULE PO ×2 (09:05→21:38)
[2021-05-14] MEDS: Insulin Lispro 100 UNIT/ML 3 ML VIAL SUBCUT ×4 (09:05→21:37)
[2021-05-14 09:12] VITALS: BP 124/75
--- NOTE | 2021-05-14 09:19 | MHC.CM.ED ---
Addendum entered by Christina Barnett 05/14/21 09:22: Referral also sent to [facility] via [employer]. Original Note: Patient remains in ER overflow. Still waitng to hear from Soto at [facility] to see if they can offer a bed. T/W left a message for Soto. T/W spoke with Suzanne at [facility]. They're max weight limit is 350lbs. Still waiting to hear from [facility] and [facility]. Continue to monitor for d/c needs.
[2021-05-14 09:31] VITALS: BP 144/78; PULSE 89; RESP 16; TEMP 36.7; O2SAT 93
--- NOTE | 2021-05-14 11:12 | MHC.CM.ED ---
Met with patient at his request. Patient requesting copy of Notice of not being readmitted to [facility] so that he can appeal. Copy provided from chart. No placement has been found at this time. Continue to monitor for d/c needs.
--- NOTE | 2021-05-14 12:50 | PC.NURSE ---
pt requesting paperwork to file regarding his removal from the facility he was at. Christina from made aware and placed a phonecall to [facility] for proper documentation
[2021-05-14 13:30] VITALS: BP 142/78; PULSE 92; RESP 16; TEMP 36.4; O2SAT 96
[2021-05-14 13:31] LABS: Glucose, Whole Blood 169 mg/dL (60-115)
--- NOTE | 2021-05-14 16:01 | MHC.CM.ED ---
Patient requested CM speak with Uche, life skills coach for [facility]. T/W spoke with Uche via telephone at [phone]. Don explained patient requesting referral to [facility]. Denilson/Josue explained 337 referrals have been made and no facility has offered a bed yet. Uche verbalized understanding.
[2021-05-14 18:23] LABS: Glucose, Whole Blood 189 mg/dL (60-115)
--- NOTE | 2021-05-14 20:45 | PC.NURSE ---
Assumed care of pt Pt moved from room 7 to room 4 for continuity of care. All of pt's belongings moved to room 4. Pt tolerated well. Pt re-oriented to new room NAD Awaiting placement Will continue to monitor
[2021-05-14 20:54] LABS: Glucose, Whole Blood 322 mg/dL (60-115)
[2021-05-14 22:26] VITALS: BP 146/80; PULSE 98; RESP 18; TEMP 36.6; O2SAT 96
[2021-05-15] MEDS: Fluticasone/Vilanterol 100/25 BLST.W.DEV 1 PUFF INHALE (08:08)
[2021-05-15 08:09] VITALS: PULSE 92; RESP 20; O2SAT 97
[2021-05-15 08:23] VITALS: BP 142/84; PULSE 92; RESP 16; TEMP 36.4; O2SAT 95
[2021-05-15 08:26] LABS: Glucose, Whole Blood 190 mg/dL (60-115)
[2021-05-15] MEDS: Chlorhexidine Gluc Oral Rinse 15 ML MOUTHWASH BUCCAL ×2 (08:37→21:01)
[2021-05-15] MEDS: Insulin Lispro 100 UNIT/ML 3 ML VIAL SUBCUT ×4 (08:37→21:01)
[2021-05-15] MEDS: Docusate Sodium 100 MG CAPSULE PO ×2 (08:38→21:01)
[2021-05-15] MEDS: Aspirin 81 MG TAB.CHEW PO (08:38)
[2021-05-15] MEDS: Loratadine 10 MG TABLET PO (08:38)
[2021-05-15] MEDS: metFORMIN HCl 1,000 MG TABLET 1000 MG PO ×2 (08:38→21:01)
[2021-05-15] MEDS: Montelukast Sodium 10 MG TABLET PO (08:38)
[2021-05-15] MEDS: Atorvastatin Calcium 20 MG TABLET PO (08:38)
[2021-05-15] MEDS: Lidocaine 4 % Patch ADH..PATCH 1 PATCH TRANSDERMA (08:41)
--- NOTE | 2021-05-15 09:15 | MHC.CM.ED ---
Patient remains in ER overflow. 364 referrals have been broadcasted throughout the state [facility]. [facility] is not able to accept patient. Continue to monitor for d/c needs.
--- NOTE | 2021-05-15 10:27 | PC.NURSE ---
Pt medicated per MAY. no complaints at this time. Will provide him with daily care items to give himself a bath. VSS. awaiting placement. Pt uses wheelchair to transfer. belongings and call guzman within reach.
[2021-05-15 11:55] LABS: Glucose, Whole Blood 175 mg/dL (60-115)
[2021-05-15] MEDS: Loperamide HCl Oral Liquid 2 MG/15 ML LIQUID 4 MG PO (15:22)
[2021-05-15 18:29] LABS: Glucose, Whole Blood 158 mg/dL (60-115)
[2021-05-15 19:24] VITALS: BP 135/68; PULSE 90; RESP 18; TEMP 36.9; O2SAT 94
[2021-05-15 20:37] LABS: Glucose, Whole Blood 187 mg/dL (60-115)
[2021-05-16 05:11] VITALS: BP 130/68; PULSE 84; RESP 18; TEMP 36.4; O2SAT 94
--- NOTE | 2021-05-16 06:52 | PC.NURSE ---
Patient has been ordering [place] food and having it delivered?to the hospital and having staff go and retrieve it for him. According to this patient's orders, he is to be on a diabetic diet with a 1500 calorie limit. He became irate and demanding when we attempted to enforce boundaries and set limits regarding this. He continued to demand that staff retrieve his food, meanwhile this RN?and other?staff are busy taking care of other patients.?Patient threatened to leave the hospital and boundaries were set with patient. Patient was medication compliant
[2021-05-16 07:52] LABS: Glucose, Whole Blood 212 mg/dL (60-115)
[2021-05-16 08:02] VITALS: PULSE 94; RESP 20; O2SAT 95
[2021-05-16] MEDS: Fluticasone/Vilanterol 100/25 BLST.W.DEV 1 PUFF INHALE (08:02)
[2021-05-16] MEDS: metFORMIN HCl 1,000 MG TABLET 1000 MG PO ×2 (08:15→22:15)
[2021-05-16] MEDS: Atorvastatin Calcium 20 MG TABLET PO (08:15)
[2021-05-16] MEDS: Aspirin 81 MG TAB.CHEW PO (08:15)
[2021-05-16] MEDS: Insulin Lispro 100 UNIT/ML 3 ML VIAL SUBCUT ×3 (08:15→22:14)
[2021-05-16] MEDS: Chlorhexidine Gluc Oral Rinse 15 ML MOUTHWASH BUCCAL ×2 (08:15→22:15)
[2021-05-16] MEDS: Montelukast Sodium 10 MG TABLET PO (08:15)
[2021-05-16] MEDS: Docusate Sodium 100 MG CAPSULE PO ×2 (08:15→22:15)
[2021-05-16] MEDS: Loratadine 10 MG TABLET PO (08:15)
[2021-05-16] MEDS: Ibuprofen 800 MG TABLET PO (08:22)
[2021-05-16 12:57] LABS: Glucose, Whole Blood 153 mg/dL (60-115)
[2021-05-16 16:43] VITALS: BP 140/74; PULSE 82; RESP 16; TEMP 36.8; O2SAT 94
--- NOTE | 2021-05-16 17:30 | PC.NURSE ---
Assumed care 0700, A&O all day, no complaints of pain, self transfers from bed to wheelchair to BR. Call guzman within reach, will contineut o monitor.
[2021-05-16 17:42] LABS: Glucose, Whole Blood 153 mg/dL (60-115)
[2021-05-16 20:49] LABS: Glucose, Whole Blood 264 mg/dL (60-115)
[2021-05-17 00:15] VITALS: PULSE 91; RESP 16; O2SAT 95
[2021-05-17 07:03] LABS: Glucose, Whole Blood 172 mg/dL (60-115)
[2021-05-17] MEDS: Insulin Lispro 100 UNIT/ML 3 ML VIAL SUBCUT (07:22)
[2021-05-17 08:05] LABS: Anion Gap 10 (12-20); Blood Urea Nitrogen 10 mg/dL (9-16); Calcium 9.1 mg/dL (8.4-10.2); Carbon Dioxide 32 mmol/L (22-29); Chloride 96 mmol/L (96-108); Creatinine Clr Calc Pharmacy 198.2; Estimated Glomerular Filt Rate > 60; Glucose Random 201 mg/dL (60-115); Potassium 4.3 mmol/L (3.3-5.1); Sodium 134 mmol/L (135-145)
--- NOTE | 2021-05-17 08:48 | PC.NURSE ---
has had breakfast and on phone with son. up to shower with assist from [facility].
[2021-05-17] MEDS: Loratadine 10 MG TABLET PO (09:09)
[2021-05-17] MEDS: Docusate Sodium 100 MG CAPSULE PO (09:09)
[2021-05-17] MEDS: Atorvastatin Calcium 20 MG TABLET PO (09:09)
[2021-05-17] MEDS: Chlorhexidine Gluc Oral Rinse 15 ML MOUTHWASH BUCCAL (09:09)
[2021-05-17] MEDS: metFORMIN HCl 1,000 MG TABLET 1000 MG PO (09:09)
[2021-05-17] MEDS: Montelukast Sodium 10 MG TABLET PO (09:09)
[2021-05-17] MEDS: Nystatin Powder 15 GM BOTTLE 1 APPL TOPICAL (09:10)
[2021-05-17] MEDS: Aspirin 81 MG TAB.CHEW PO (09:10)
[2021-05-17 13:02] LABS: Glucose, Whole Blood 132 mg/dL (60-115)
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
[2021-05-17 13:10] VITALS: BP 140/74; PULSE 82; O2SAT 94
== END 2021-05-17 16:05 | disposition home or self-care (01) ==
PROVIDERS: Emergency Provider Emergency Medicine Emergency Medical Services
DX: R45.6 Violent behavior (principal); M25.511 Pain in right shoulder; Z91.81 History of falling; E11.9 Type 2 diabetes mellitus without complications; I10 Essential (primary) hypertension; E66.01 Morbid (severe) obesity due to excess calories; Z68.44 Body mass index [BMI] 60.0-69.9, adult; G47.33 Obstructive sleep apnea (adult) (pediatric); F12.90 Cannabis use, unspecified, uncomplicated; Z86.718 Personal history of other venous thrombosis and embolism; Z20.822 Contact with and (suspected) exposure to COVID-19; Z79.82 Long term (current) use of aspirin; Z79.4 Long term (current) use of insulin; Z79.02 Long term (current) use of antithrombotics/antiplatelets; Z79.899 Other long term (current) drug therapy
CPT/HCPCS: 36415; 73030; 80048; 80053; 80307; 82077; 82947; 85025; 87635; 94640; 94660; 97116; 97162; 97530; 99285

== ENCOUNTER 2021-05-18 05:40 | Emergency (ER) | payer MEDICARE, MEDICAID, SELFPAY ==
--- NOTE | ~2021-05-18 | XR_ITS ---
EXAMINATION: XR CHEST CLINICAL INFORMATION: Shortness of breath. COMPARISON: Most recent chest radiograph dated 03/10/2021. TECHNIQUE: Frontal view of the chest was obtained. FINDINGS: Hypoinflation of the lungs. Left lung base obscured by overlying soft tissues. No large pleural effusion or pneumothorax. Unremarkable cardiomediastinal silhouette. XR/XR chest 1V IMPRESSION: 1. Hypoinflation of the lungs with the left lung base obscured by overlying soft tissues. 2. No large airspace consolidation, effusion, or pneumothorax.
[2021-05-18 05:47] VITALS: BP 134/83; PULSE 105; RESP 16; TEMP 36.9; O2SAT 96; BMI 64.1
--- NOTE | 2021-05-18 05:50 | ECG_ITS ---
Test Reason : chest pain Blood Pressure : / mmHG Vent. Rate : 097 BPM Atrial Rate : 097 BPM P-R Int : 154 ms QRS Dur : 080 ms QT Int : 384 ms P-R-T Axes : 061 039 065 degrees QTc Int : 487 ms Normal sinus rhythm Low voltage QRS Cannot rule out Anterior infarct , age undetermined Abnormal ECG When compared with ECG of 10-MAR-2021 20:50, No significant change was found Referred By: Chetna Talamantes Electronically Signed By:Luis Mayo
[2021-05-18 06:11] LABS: Basophils Percent Auto 0.2 % (0-2); Eosinophils Percent Auto 0.2 % (0-4); Hematocrit 42.8 % (42.0-52.0); Hemoglobin 13.7 g/dl (14.0-18.0); Imm Gran Abs Auto 0.09 X10*3/uL (0.00-0.03); Imm Gran Pct Auto 0.8 % (0.0-0.4); Lymphocytes Percent Auto 8.7 % (20-40); MANUAL DIFF FLAG NO; Mean Corpuscular Hemoglobin 28.1 pg (27.0-33.0); Mean Corpuscular Volume 87.9 fL (80.0-98.0); Monocytes Absolute Auto 0.7 X10*3/uL (0.1-1.2); Monocytes Percent Auto 5.9 % (2-11); Neutrophils Absolute Auto 9.8 x10*3/uL (2.0-8.3); Neutrophils Percent Auto 84.2 % (45-73); Platelet Count 312 X10*3/uL (160-400); Red Blood Count 4.87 X10*6/uL (4.60-5.80); Red Cell Distribution Width 12.8 % (11.0-16.0); White Blood Count 11.6 X10*3/uL (4.8-10.8)
--- NOTE | 2021-05-18 06:27 | ED.CHESTPAIN ---
HPI - Chest Pain General Chief Complaint: Chest Pain Stated Complaint: cp/sob Time Seen by Provider: 05/18/21 05:50 Source: patient Mode of arrival: EMS History of Present Illness HPI narrative: 51-year-old male with history of diabetes, was say and presents after having been discharged yesterday at 17:30 with awakening suddenly from sleep stating that he was gasping and felt significantly short of breath with associated chest pain at approximately 04:00 this morning. He states that he was sweating and states that the pain also radiated into his left arm. He otherwise denies any nausea, vomiting and states that he was not wearing his CPAP because ?it has not been delivered?. Related Data Home Medications Medication Instructions Recorded Confirmed aspirin 81 mg tablet 81 mg PO DAILY 12/17/20 05/07/21 montelukast 10 mg tablet 10 mg PO DAILY 12/17/20 05/07/21 acetaminophen 500 mg tablet 1,000 mg PO TID PRN 03/20/21 05/07/21 atorvastatin 20 mg tablet 1 tab PO DAILY 03/20/21 05/07/21 chlorhexidine gluconate 0.12 % 15 ml PO BID 03/20/21 05/07/21 mouthwash docusate sodium 100 mg capsule 100 mg PO BID 03/20/21 05/07/21 fluticasone 250 mcg-salmeterol 50 1 inh INHALATION BID 03/20/21 05/07/21 mcg/dose blistr powdr for inhalation (Advair Diskus) ibuprofen 800 mg tablet 800 mg PO Q8H PRN 03/20/21 05/07/21 lidocaine 4 % topical patch 1 patch TOPICAL DAILY PRN 03/20/21 05/07/21 nystatin 100,000 unit/gram topical 1 applic TOPICAL BID-TID PRN 03/20/21 05/07/21 powder (Nystop) sennosides 8.6 mg tablet (senna) 17.2 mg PO BEDTIME 03/20/21 05/07/21 insulin lispro 100 unit/mL 1 sliding scale dose SUBCUT 05/07/21 05/07/21 subcutaneous solution (Humalog USEASDIRECTD U-100 Insulin) loratadine 10 mg tablet 10 mg PO DAILY 05/07/21 05/07/21 metformin 500 mg tablet 1,000 mg PO BID 05/07/21 05/07/21 oxycodone 5 mg tablet 10 mg PO Q6H PRN 05/07/21 05/07/21 Previous Rx's Medication Instructions Recorded albuterol sulfate 90 mcg/actuation 2 puff INHALATION Q4-6H PRN #8.5 g 11/01/20 aerosol inhaler blood sugar diagnostic (FreeStyle #100 ea 05/17/21 Lite Strips) blood-glucose meter (FreeStyle #1 ea 05/17/21 Lite Meter) lancets 28 gauge (FreeStyle #100 ea 05/17/21 Lancets) metformin 1,000 mg tablet 1,000 mg PO BID #30 tab 05/17/21 Allergies Allergy/AdvReac Type Severity Reaction Status Date / Time risperidone [Risperdal] Allergy Unknown hives/rash Verified 05/18/21 05:53 lisinopril Allergy Unknown Verified 05/18/21 05:53 nitroglycerin [NITROGLYCERIN] AdvReac Unknown SEVERE Verified 05/18/21 05:53 HYPOTENSION Review of Systems Review of Systems: Pertinent positives and negatives as stated in HPI 10 point review of systems is otherwise negative. [facility] Past Medical History Source: nursing notes reviewed Medical History Arthritis Asthma COPD (chronic obstructive pulmonary disease) Diabetes mellitus DVT (deep venous thrombosis) HTN (hypertension) Sleep apnea Surgical History History of bowel resection Social History Social History Alcohol intake: never Patient Tobacco Use Status: Former Tobacco user Substance Use Type: Marijuana Advance Directives: No Physical Exam Vital Signs: Vital Signs: Last Vital Signs Temp 98.5 F 05/18/21 05:47 Pulse 105 H 05/18/21 05:47 Resp 16 05/18/21 05:47 BP 134/83 05/18/21 05:47 Pulse Ox 96 05/18/21 05:47 BMI result Body Mass Index 64.1 VITAL SIGNS: Reviewed. GENERAL: Elevated BMI, in mild distress. HEAD: Normocephalic/atraumatic, EYES: PERRLA, EOMI EARS: Ext canals without abnormality OROPHARYNX: no oral lesions noted, posterior pharynx clear LUNGS: Normal breath sounds. No adventitious sounds or accessory muscle use. SpO2<96> CARDIOVASCULAR: Regular rate and rhythm without noted murmurs, no JVD or lower extremity edema. ABDOMEN: Soft, non-tender, non-distended with bowel sounds. NEUROLOGIC: Alert and oriented x 4. Strength and sensation to light touch were grossly intact x 4. Course Course Course Narrative: 51-year-old male with history and clinical presentation suggestive of sequela of symptoms secondary to JANIA. However, will rule out other etiologies such as patient's underlying condition of COPD although this is less likely and will evaluate for evidence of cardiac ischemia. Patient took aspirin himself and is allergic to nitro. Signed out to Dr Glass to f/u Trop #2 and dispo accordingly. MDM - Chest Pain Lab Data Result diagrams: 05/18/21 06:06 05/18/21 06:06 Labs: Lab Results 05/18/21 05/18/21 05/18/21 Range/Units 06:06 06:06 06:06 WBC 11.6 H (4.8-10.8) X10*3/uL RBC 4.87 (4.60-5.80) X10*6/uL Hgb 13.7 L (14.0-18.0) g/dl Hct 42.8 (42.0-52.0) % MCV 87.9 (80.0-98.0) fL MCH 28.1 (27.0-33.0) pg MCHC 32.0 (31.0-36.0) g/dl RDW 12.8 (11.0-16.0) % Plt Count 312 (160-400) X10*3/uL MPV 9.0 L (9.4-12.4) fL Immature Gran % (Auto) 0.8 H (0.0-0.4) % Neut % (Auto) 84.2 H (45-73) % Lymph % (Auto) 8.7 L (20-40) % [place] % (Auto) 5.9 (2-11) % Eos % (Auto) 0.2 (0-4) % Baso % (Auto) 0.2 (0-2) % Lymph # (Auto) 1.0 L (1.2-4.9) X10*3/uL [place] # (Auto) 0.7 (0.1-1.2) X10*3/uL Eos # (Auto) 0.0 (0.0-0.4) X10*3/uL Baso # (Auto) 0.0 (0.0-0.2) X10*3/uL Abs Immat Gran (auto) 0.09 H (0.00-0.03) X10*3/uL Absolute Neuts (auto) 9.8 H (2.0-8.3) x10*3/uL Absolute Nucleated RBC 0.000 (0.0-0.012) X10*3/uL Nucleated RBC % (auto) 0.0 (0.0-0.2) /100WBC Sodium 135 (135-145) mmol/L Potassium 4.3 (3.3-5.1) mmol/L Chloride 97 (96-108) mmol/L Carbon Dioxide 27 (22-29) mmol/L Anion Gap 15 (12-20) BUN 12 (9-16) mg/dL Creatinine 0.88 (0.5-1.4) mg/dL Estim Creat Clear Calc 173.5 Estimated GFR > 60 Random Glucose 228 H (60-115) mg/dL Calcium 9.2 (8.4-10.2) mg/dL Total Bilirubin 0.6 (0.0-1.0) mg/dL AST 43 H (5-37) U/L ALT 47 H (0-40) U/L Alkaline Phosphatase 97 (39-117) U/L Troponin I High Sens 4.7 (<3.5-35.0) ng/L Total Protein 7.9 (6.5-8.0) g/dL Albumin 4.0 (3.5-5.0) g/dL ECG Data ECG #1: Attestation: I personally reviewed and interpreted this ECG as follows: Prior ECG tracings: available for review Interpretation: Normal sinus rhythm, HR-97, no STEMI, ME/QRS/QTC are within normal limits. Discharge Plan Discharge Clinical Impression: Chest pain, Shortness of breath Patient Disposition: Still a Patient Prescriptions: No Action albuterol sulfate 90 mcg/actuation HFA aerosol inhaler 2 puff inhalation Q4-6H PRN (Reason: shortness of breath or wheezing) Qty: 8.5 0RF montelukast 10 mg Tablet 10 mg PO DAILY 0RF aspirin 81 mg Tablet 81 mg PO DAILY 0RF metformin 500 mg Tablet 1,000 mg PO BID 0RF insulin lispro [Humalog U-100 Insulin] 100 unit/mL Solution 1 sliding scale dose SUBCUT USEASDIRECTD 0RF Protocol: Insulin Correction Scale Less than or equal to 110 ---- Give (units): 0 111 to 150 Give (units): 0 151 to 200 Give (units): 2 201 to 250 Give (units): 4 251 to 300 Give (units): 6 301 to 350 Give (units): 8 Greater than 350 Give (units): 10 Call MD if Blood Glucose > : 350 loratadine 10 mg Tablet 10 mg PO DAILY 0RF oxycodone 5 mg Tablet 10 mg PO Q6H PRN (Reason: Pain) 0RF (DME) blood-glucose meter [FreeStyle Lite Meter] Kit See Rx Instructions .Route Qty: 1 0RF Rx Instructions: As directed (DME) FreeStyle Lite Strips Strip See Rx Instructions .Route Qty: 100 0RF Rx Instructions: As directed (DME) lancets [FreeStyle Lancets] 28 gauge misc See Rx Instructions .Route Qty: 100 0RF Rx Instructions: As directed metformin 1,000 mg tablet 1,000 mg PO BID Qty: 30 0RF fluticasone propion-salmeterol [Advair Diskus] 250-50 mcg/dose Blister With Device 1 inh INHALATION BID 0RF sennosides [senna] 8.6 mg Tablet 17.2 mg PO BEDTIME 0RF atorvastatin 20 mg tablet 1 tab PO DAILY 0RF lidocaine 4 % Adhesive Patch,Medicated 1 patch TOPICAL DAILY PRN (Reason: knee pain) 0RF ibuprofen 800 mg Tablet 800 mg PO Q8H PRN (Reason: Pain) 0RF acetaminophen 500 mg Tablet 1,000 mg PO TID PRN (Reason: Pain) 0RF docusate sodium 100 mg Capsule 100 mg PO BID 0RF nystatin [Nystop] 100,000 unit/gram powder 1 applic topical BID-TID PRN (Reason: Rash) 0RF chlorhexidine gluconate 0.12 % mouthwash 15 ml PO BID 0RF
[2021-05-18 06:28] LABS: Alanine Aminotransferase 47 U/L (0-40); Alkaline Phosphatase 97 U/L (39-117); Anion Gap 15 (12-20); Aspartate Amino Transferase 43 U/L (5-37); Bilirubin Total 0.6 mg/dL (0.0-1.0); Blood Urea Nitrogen 12 mg/dL (9-16); Calcium 9.2 mg/dL (8.4-10.2); Carbon Dioxide 27 mmol/L (22-29); Chloride 97 mmol/L (96-108); Creatinine Clr Calc Pharmacy 173.5; Estimated Glomerular Filt Rate > 60; Glucose Random 228 mg/dL (60-115); Potassium 4.3 mmol/L (3.3-5.1); Sodium 135 mmol/L (135-145); Total Protein 7.9 g/dL (6.5-8.0)
[2021-05-18 06:30] LABS: Troponin-I High Sensitivity 4.7 ng/L (<3.5-35.0)
[2021-05-18 08:37] VITALS: BP 118/64; PULSE 97; RESP 18; TEMP 36.8; O2SAT 97
--- NOTE | 2021-05-18 08:48 | ED_ITS ---
HPI - Chest Pain General Chief Complaint: Chest Pain Stated Complaint: cp/sob Time Seen by Provider: 05/18/21 05:50 Source: patient Mode of arrival: EMS History of Present Illness HPI narrative: This is a brief note/addendum: Patient her who was evaluated by another provider and was waiting disposition. Patient has been evaluated by Case Management and is believed to have a CPAP machine at the care facility she had recently been admitted to, does not require admission today. Related Data Home Medications Medication Instructions Recorded Confirmed aspirin 81 mg tablet 81 mg PO DAILY 12/17/20 05/07/21 montelukast 10 mg tablet 10 mg PO DAILY 12/17/20 05/07/21 acetaminophen 500 mg tablet 1,000 mg PO TID PRN 03/20/21 05/07/21 atorvastatin 20 mg tablet 1 tab PO DAILY 03/20/21 05/07/21 chlorhexidine gluconate 0.12 % 15 ml PO BID 03/20/21 05/07/21 mouthwash docusate sodium 100 mg capsule 100 mg PO BID 03/20/21 05/07/21 fluticasone 250 mcg-salmeterol 50 1 inh INHALATION BID 03/20/21 05/07/21 mcg/dose blistr powdr for inhalation (Advair Diskus) ibuprofen 800 mg tablet 800 mg PO Q8H PRN 03/20/21 05/07/21 lidocaine 4 % topical patch 1 patch TOPICAL DAILY PRN 03/20/21 05/07/21 nystatin 100,000 unit/gram topical 1 applic TOPICAL BID-TID PRN 03/20/21 05/07/21 powder (Nystop) sennosides 8.6 mg tablet (senna) 17.2 mg PO BEDTIME 03/20/21 05/07/21 insulin lispro 100 unit/mL 1 sliding scale dose SUBCUT 05/07/21 05/07/21 subcutaneous solution (Humalog USEASDIRECTD U-100 Insulin) loratadine 10 mg tablet 10 mg PO DAILY 05/07/21 05/07/21 metformin 500 mg tablet 1,000 mg PO BID 05/07/21 05/07/21 oxycodone 5 mg tablet 10 mg PO Q6H PRN 05/07/21 05/07/21 Previous Rx's Medication Instructions Recorded albuterol sulfate 90 mcg/actuation 2 puff INHALATION Q4-6H PRN #8.5 g 11/01/20 aerosol inhaler blood sugar diagnostic (FreeStyle #100 ea 05/17/21 Lite Strips) blood-glucose meter (FreeStyle #1 ea 05/17/21 Lite Meter) lancets 28 gauge (FreeStyle #100 ea 05/17/21 Lancets) metformin 1,000 mg tablet 1,000 mg PO BID #30 tab 05/17/21 Allergies Allergy/AdvReac Type Severity Reaction Status Date / Time risperidone [Risperdal] Allergy Unknown hives/rash Verified 05/18/21 05:53 lisinopril Allergy Unknown Verified 05/18/21 05:53 nitroglycerin [NITROGLYCERIN] AdvReac Unknown SEVERE Verified 05/18/21 05:53 HYPOTENSION PMFSH Past Medical History Medical History Arthritis Asthma COPD (chronic obstructive pulmonary disease) Diabetes mellitus DVT (deep venous thrombosis) HTN (hypertension) Sleep apnea Surgical History History of bowel resection Social History Social History Alcohol intake: never Patient Tobacco Use Status: Former Tobacco user Substance Use Type: Marijuana Advance Directives: No Advance Directives Information Provided: No Advance Directives Date on File: 12/18/20 Physical Exam Vital Signs: Vital Signs: Last Vital Signs Temp 98.3 F 05/18/21 08:37 Pulse 97 05/18/21 08:37 Resp 18 05/18/21 08:37 BP 118/64 05/18/21 08:37 Pulse Ox 97 05/18/21 08:37 BMI result Body Mass Index 64.1 MDM - Chest Pain Lab Data Result diagrams: 05/18/21 06:06 05/18/21 06:06 Labs: Lab Results 05/18/21 05/18/21 05/18/21 Range/Units 06:06 06:06 06:06 WBC 11.6 H (4.8-10.8) X10*3/uL RBC 4.87 (4.60-5.80) X10*6/uL Hgb 13.7 L (14.0-18.0) g/dl Hct 42.8 (42.0-52.0) % MCV 87.9 (80.0-98.0) fL MCH 28.1 (27.0-33.0) pg MCHC 32.0 (31.0-36.0) g/dl RDW 12.8 (11.0-16.0) % Plt Count 312 (160-400) X10*3/uL MPV 9.0 L (9.4-12.4) fL Immature Gran % (Auto) 0.8 H (0.0-0.4) % Neut % (Auto) 84.2 H (45-73) % Lymph % (Auto) 8.7 L (20-40) % [place] % (Auto) 5.9 (2-11) % Eos % (Auto) 0.2 (0-4) % Baso % (Auto) 0.2 (0-2) % Lymph # (Auto) 1.0 L (1.2-4.9) X10*3/uL [place] # (Auto) 0.7 (0.1-1.2) X10*3/uL Eos # (Auto) 0.0 (0.0-0.4) X10*3/uL Baso # (Auto) 0.0 (0.0-0.2) X10*3/uL Abs Immat Gran (auto) 0.09 H (0.00-0.03) X10*3/uL Absolute Neuts (auto) 9.8 H (2.0-8.3) x10*3/uL Absolute Nucleated RBC 0.000 (0.0-0.012) X10*3/uL Nucleated RBC % (auto) 0.0 (0.0-0.2) /100WBC Sodium 135 (135-145) mmol/L Potassium 4.3 (3.3-5.1) mmol/L Chloride 97 (96-108) mmol/L Carbon Dioxide 27 (22-29) mmol/L Anion Gap 15 (12-20) BUN 12 (9-16) mg/dL Creatinine 0.88 (0.5-1.4) mg/dL Estim Creat Clear Calc 173.5 Estimated GFR > 60 Random Glucose 228 H (60-115) mg/dL Calcium 9.2 (8.4-10.2) mg/dL Total Bilirubin 0.6 (0.0-1.0) mg/dL AST 43 H (5-37) U/L ALT 47 H (0-40) U/L Alkaline Phosphatase 97 (39-117) U/L Troponin I High Sens 4.7 (<3.5-35.0) ng/L Total Protein 7.9 (6.5-8.0) g/dL Albumin 4.0 (3.5-5.0) g/dL 05/18/21 Range/Units 09:31 WBC (4.8-10.8) X10*3/uL RBC (4.60-5.80) X10*6/uL Hgb (14.0-18.0) g/dl Hct (42.0-52.0) % MCV (80.0-98.0) fL MCH (27.0-33.0) pg MCHC (31.0-36.0) g/dl RDW (11.0-16.0) % Plt Count (160-400) X10*3/uL MPV (9.4-12.4) fL Immature Gran % (Auto) (0.0-0.4) % Neut % (Auto) (45-73) % Lymph % (Auto) (20-40) % [place] % (Auto) (2-11) % Eos % (Auto) (0-4) % Baso % (Auto) (0-2) % Lymph # (Auto) (1.2-4.9) X10*3/uL [place] # (Auto) (0.1-1.2) X10*3/uL Eos # (Auto) (0.0-0.4) X10*3/uL Baso # (Auto) (0.0-0.2) X10*3/uL Abs Immat Gran (auto) (0.00-0.03) X10*3/uL Absolute Neuts (auto) (2.0-8.3) x10*3/uL Absolute Nucleated RBC (0.0-0.012) X10*3/uL Nucleated RBC % (auto) (0.0-0.2) /100WBC Sodium (135-145) mmol/L Potassium (3.3-5.1) mmol/L Chloride (96-108) mmol/L Carbon Dioxide (22-29) mmol/L Anion Gap (12-20) BUN (9-16) mg/dL Creatinine (0.5-1.4) mg/dL Estim Creat Clear Calc Estimated GFR Random Glucose (60-115) mg/dL Calcium (8.4-10.2) mg/dL Total Bilirubin (0.0-1.0) mg/dL AST (5-37) U/L ALT (0-40) U/L Alkaline Phosphatase (39-117) U/L Troponin I High Sens 4.1 (<3.5-35.0) ng/L Total Protein (6.5-8.0) g/dL Albumin (3.5-5.0) g/dL Discharge Plan Discharge Clinical Impression: Chest pain, Shortness of breath Patient Disposition: Home, Self-Care Instructions: Shortness of Breath (ED) Additional Instructions: Have a 1 of your family members go to [facility] to get her CPAP device. Continue your current medications. Follow-up with primary care physician. Prescriptions: No Action albuterol sulfate 90 mcg/actuation HFA aerosol inhaler 2 puff inhalation Q4-6H PRN (Reason: shortness of breath or wheezing) Qty: 8.5 0RF montelukast 10 mg Tablet 10 mg PO DAILY 0RF aspirin 81 mg Tablet 81 mg PO DAILY 0RF metformin 500 mg Tablet 1,000 mg PO BID 0RF insulin lispro [Humalog U-100 Insulin] 100 unit/mL Solution 1 sliding scale dose SUBCUT USEASDIRECTD 0RF Protocol: Insulin Correction Scale Less than or equal to 110 ---- Give (units): 0 111 to 150 Give (units): 0 151 to 200 Give (units): 2 201 to 250 Give (units): 4 251 to 300 Give (units): 6 301 to 350 Give (units): 8 Greater than 350 Give (units): 10 Call MD if Blood Glucose > : 350 loratadine 10 mg Tablet 10 mg PO DAILY 0RF oxycodone 5 mg Tablet 10 mg PO Q6H PRN (Reason: Pain) 0RF (DME) blood-glucose meter [FreeStyle Lite Meter] Kit See Rx Instructions .Route Qty: 1 0RF Rx Instructions: As directed (DME) FreeStyle Lite Strips Strip See Rx Instructions .Route Qty: 100 0RF Rx Instructions: As directed (DME) lancets [FreeStyle Lancets] 28 gauge misc See Rx Instructions .Route Qty: 100 0RF Rx Instructions: As directed metformin 1,000 mg tablet 1,000 mg PO BID Qty: 30 0RF fluticasone propion-salmeterol [Advair Diskus] 250-50 mcg/dose Blister With Device 1 inh INHALATION BID 0RF sennosides [senna] 8.6 mg Tablet 17.2 mg PO BEDTIME 0RF atorvastatin 20 mg tablet 1 tab PO DAILY 0RF lidocaine 4 % Adhesive Patch,Medicated 1 patch TOPICAL DAILY PRN (Reason: knee pain) 0RF ibuprofen 800 mg Tablet 800 mg PO Q8H PRN (Reason: Pain) 0RF acetaminophen 500 mg Tablet 1,000 mg PO TID PRN (Reason: Pain) 0RF docusate sodium 100 mg Capsule 100 mg PO BID 0RF nystatin [Nystop] 100,000 unit/gram powder 1 applic topical BID-TID PRN (Reason: Rash) 0RF chlorhexidine gluconate 0.12 % mouthwash 15 ml PO BID 0RF Interventions: ED Discharge Assessment Last Done: 05/18/21 10:25 Discharge Date/Time: 05/18/21 10:27
[2021-05-18 09:55] LABS: Troponin-I High Sensitivity 4.1 ng/L (<3.5-35.0)
--- NOTE | 2021-05-18 10:27 | PC.NURSE ---
pt provided with discharge instructions and verbalized understanding of teachings. Pt aware to follow up with pcp. [facility] booked for pt by case management.
== END 2021-05-18 10:27 | disposition home or self-care (01) ==
PROVIDERS: Student in an Organized Health Care Education/Training Program; Emergency Provider Emergency Medicine
DX: R07.9 Chest pain, unspecified (principal); R06.02 Shortness of breath; E11.9 Type 2 diabetes mellitus without complications; I10 Essential (primary) hypertension
CPT/HCPCS: 36415; 71045; 80053; 84484; 85025; 93005; 99283; 99284

== ENCOUNTER 2021-05-20 04:41 | Emergency (ER) | payer MEDICARE, MEDICAID, SELFPAY ==
--- NOTE | ~2021-05-20 | XR_ITS ---
EXAMINATION: XR ELBOW, LEFT CLINICAL INFORMATION: Fall, pain COMPARISON: None TECHNIQUE: AP, lateral, and oblique views of the left elbow. FINDINGS: Osseous alignment is anatomic. Spurring is noted at the proximal radius and ulna, without definite acute fracture. No appreciable effusion. Mild soft tissue swelling noted. XR/XR elbow LT min 3V IMPRESSION: Degenerative change without acute osseous findings.
[2021-05-20 05:02] VITALS: BP 142/60; PULSE 94; RESP 18; TEMP 36.9; O2SAT 95; O2SAT 96; BMI 58.1
--- NOTE | 2021-05-20 05:59 | PC.NURSE ---
Patient arrived c/o left elbow pain from fall. With x-ray, patient confirmed muscle pain but denies bone pain. Patient eloped prior to medication administration.
--- NOTE | 2021-05-20 06:08 | ED_ITS ---
HPI - Fall General Chief Complaint: Fall Stated Complaint: fall/body pain Source: patient Mode of arrival: EMS History of Present Illness HPI Narrative: 51-year-old male is brought in by EMS after he states that he felt his brothers and landed on his left elbow which he states ?hurts? and describes a 09/22. Patient denies any loss of consciousness or blood thinner use. Related Data Home Medications Medication Instructions Recorded Confirmed aspirin 81 mg tablet 81 mg PO DAILY 12/17/20 05/07/21 montelukast 10 mg tablet 10 mg PO DAILY 12/17/20 05/07/21 acetaminophen 500 mg tablet 1,000 mg PO TID PRN 03/20/21 05/07/21 atorvastatin 20 mg tablet 1 tab PO DAILY 03/20/21 05/07/21 chlorhexidine gluconate 0.12 % 15 ml PO BID 03/20/21 05/07/21 mouthwash docusate sodium 100 mg capsule 100 mg PO BID 03/20/21 05/07/21 fluticasone 250 mcg-salmeterol 50 1 inh INHALATION BID 03/20/21 05/07/21 mcg/dose blistr powdr for inhalation (Advair Diskus) ibuprofen 800 mg tablet 800 mg PO Q8H PRN 03/20/21 05/07/21 lidocaine 4 % topical patch 1 patch TOPICAL DAILY PRN 03/20/21 05/07/21 nystatin 100,000 unit/gram topical 1 applic TOPICAL BID-TID PRN 03/20/21 05/07/21 powder (Nystop) sennosides 8.6 mg tablet (senna) 17.2 mg PO BEDTIME 03/20/21 05/07/21 insulin lispro 100 unit/mL 1 sliding scale dose SUBCUT 05/07/21 05/07/21 subcutaneous solution (Humalog USEASDIRECTD U-100 Insulin) loratadine 10 mg tablet 10 mg PO DAILY 05/07/21 05/07/21 metformin 500 mg tablet 1,000 mg PO BID 05/07/21 05/07/21 oxycodone 5 mg tablet 10 mg PO Q6H PRN 05/07/21 05/07/21 Previous Rx's Medication Instructions Recorded albuterol sulfate 90 mcg/actuation 2 puff INHALATION Q4-6H PRN #8.5 g 11/01/20 aerosol inhaler blood sugar diagnostic (FreeStyle #100 ea 05/17/21 Lite Strips) blood-glucose meter (FreeStyle #1 ea 05/17/21 Lite Meter) lancets 28 gauge (FreeStyle #100 ea 05/17/21 Lancets) metformin 1,000 mg tablet 1,000 mg PO BID #30 tab 05/17/21 Allergies Allergy/AdvReac Type Severity Reaction Status Date / Time risperidone [Risperdal] Allergy Unknown hives/rash Verified 05/18/21 05:53 lisinopril Allergy Unknown Verified 05/18/21 05:53 nitroglycerin [NITROGLYCERIN] AdvReac Unknown SEVERE Verified 05/18/21 05:53 HYPOTENSION Review of Systems Review of Systems: Pertinent positives and negatives as stated in HPI 10 point review of systems is otherwise negative. [facility] Past Medical History Source: nursing notes reviewed Medical History Arthritis Asthma COPD (chronic obstructive pulmonary disease) Diabetes mellitus DVT (deep venous thrombosis) HTN (hypertension) Sleep apnea Surgical History History of bowel resection Social History Social History Alcohol intake: never Patient Tobacco Use Status: Former Tobacco user Substance Use Type: Marijuana Advance Directives: No Advance Directives Information Provided: No Advance Directives Date on File: 12/18/20 Physical Exam Vital Signs: Vital Signs: Last Vital Signs Temp 98.5 F 05/20/21 05:02 Pulse 94 05/20/21 05:02 Resp 18 05/20/21 05:02 BP 142/60 H 05/20/21 05:02 Pulse Ox 95 05/20/21 05:02 BMI result Body Mass Index 58.1 VITAL SIGNS: Reviewed. GENERAL: Well developed, well nourished, in no acute distress. HEAD: Normocephalic/atraumatic EYES: PERRLA, EOMI EARS: Ext canals without abnormality OROPHARYNX: no oral lesions noted, posterior pharynx clear LUNGS: Normal breath sounds. No adventitious sounds or accessory muscle use. SpO2<95> CARDIOVASCULAR: Regular rate and rhythm without noted murmurs, no JVD or lower extremity edema. ABDOMEN: Soft, non-tender, non-distended with bowel sounds. MUSCULOSKELETAL: No tenderness, deformities, or effusions noted on gross inspection. EXTREMITIES: No cyanosis, clubbing or edema; LEFT UPPER EXTREMITY: No deformit y, laceration, erythema/induration and patient noted to have full range of motion at the elbow but states that it is painful. SKIN: Inspection of the skin reveals no rashes NEUROLOGIC: Alert and oriented x 4. Strength and sensation to light touch were grossly intact x 4. Course Course Course Narrative: 51-year-old male with history and clinical presentation consistent with left elbow pain. His provided with Tylenol and review of x-rays are negative for acute findings of fracture or dislocation. Discharge Plan Discharge Clinical Impression: Left elbow pain Patient Disposition: Elopement Prescriptions: No Action albuterol sulfate 90 mcg/actuation HFA aerosol inhaler 2 puff inhalation Q4-6H PRN (Reason: shortness of breath or wheezing) Qty: 8.5 0RF montelukast 10 mg Tablet 10 mg PO DAILY 0RF aspirin 81 mg Tablet 81 mg PO DAILY 0RF metformin 500 mg Tablet 1,000 mg PO BID 0RF insulin lispro [Humalog U-100 Insulin] 100 unit/mL Solution 1 sliding scale dose SUBCUT USEASDIRECTD 0RF Protocol: Insulin Correction Scale Less than or equal to 110 ---- Give (units): 0 111 to 150 Give (units): 0 151 to 200 Give (units): 2 201 to 250 Give (units): 4 251 to 300 Give (units): 6 301 to 350 Give (units): 8 Greater than 350 Give (units): 10 Call MD if Blood Glucose > : 350 loratadine 10 mg Tablet 10 mg PO DAILY 0RF oxycodone 5 mg Tablet 10 mg PO Q6H PRN (Reason: Pain) 0RF (DME) blood-glucose meter [FreeStyle Lite Meter] Kit See Rx Instructions .Route Qty: 1 0RF Rx Instructions: As directed (DME) FreeStyle Lite Strips Strip See Rx Instructions .Route Qty: 100 0RF Rx Instructions: As directed (DME) lancets [FreeStyle Lancets] 28 gauge misc See Rx Instructions .Route Qty: 100 0RF Rx Instructions: As directed metformin 1,000 mg tablet 1,000 mg PO BID Qty: 30 0RF fluticasone propion-salmeterol [Advair Diskus] 250-50 mcg/dose Blister With Device 1 inh INHALATION BID 0RF sennosides [senna] 8.6 mg Tablet 17.2 mg PO BEDTIME 0RF atorvastatin 20 mg tablet 1 tab PO DAILY 0RF lidocaine 4 % Adhesive Patch,Medicated 1 patch TOPICAL DAILY PRN (Reason: knee pain) 0RF ibuprofen 800 mg Tablet 800 mg PO Q8H PRN (Reason: Pain) 0RF acetaminophen 500 mg Tablet 1,000 mg PO TID PRN (Reason: Pain) 0RF docusate sodium 100 mg Capsule 100 mg PO BID 0RF nystatin [Nystop] 100,000 unit/gram powder 1 applic topical BID-TID PRN (Reason: Rash) 0RF chlorhexidine gluconate 0.12 % mouthwash 15 ml PO BID 0RF Interventions: ED Discharge Assessment Last Done: 05/20/21 06:01 Discharge Date/Time: 05/20/21 06:04
--- NOTE | 2021-05-20 09:35 | MHC.CM.ED ---
Pt presented in ED waiting room looking for CM after he had left the ED at 6 am. Pt states he was upset with the ED care: they didn't do anything for me Pt sitting in w/c eating cheese puffs in no apparent distress. Pt reports that he cannot stay with his family as he fell out of bed and the bedroom is shared and crowded. Pt requesting assistance with housing: gave patient printed out information on area shelters: Pt states he does not want a group home that closes during the day and it's cold out and he doesn't want to wait until they reopen. CM called [facility] in [place] who requested pt call them at 10:30. Written instructions given to pt. Also, pt inquiring on his appeal with [facility]: CM called [facility] and was told by motor vehicle field representative to have pt contact the local area network administrator himself - written contact info given to pt. Pt states he has a working cellphone and will make contact with the above centers today. Pt requesting a taxi voucher to [address] [place] [address]. [employer] to transport at 10am. Pt aware and ready to leave ED waiting room
== END 2021-05-20 06:04 | disposition left against medical advice (07) ==
PROVIDERS: Emergency Provider Student in an Organized Health Care Education/Training Program
DX: M25.522 Pain in left elbow (principal)
CPT/HCPCS: 73080; 99283

== ENCOUNTER 2021-07-07 21:32 | Emergency (ER) | payer MEDICARE, MEDICAID, SELFPAY ==
--- NOTE | 2021-07-07 | ECG_ITS ---
Test Reason : CHEST PAIN Blood Pressure : / mmHG Vent. Rate : 091 BPM Atrial Rate : 091 BPM P-R Int : 146 ms QRS Dur : 072 ms QT Int : 356 ms P-R-T Axes : 063 016 070 degrees QTc Int : 437 ms Normal sinus rhythm Low voltage QRS Cannot rule out Anterior infarct (cited on or before 18-MAY-2021) Abnormal ECG When compared with ECG of 18-MAY-2021 06:08, No significant change was found Referred By: Generic ED Physician Electronically Signed By:HARLEY SHARMA
--- NOTE | ~2021-07-07 | XR_ITS ---
EXAMINATION: XR KNEE, LEFT CLINICAL INFORMATION: Pain. COMPARISON: Radiograph of the left knee dated from 03/19/2021. TECHNIQUE: Four views of the left knee. FINDINGS: Redemonstration of advanced tricompartmental arthritis and calcified loose bodies. No definite fractures or malalignment. No joint effusion. XR/XR knee LT 4V IMPRESSION: Severe osteoarthritis. Redemonstration of multiple calcified loose bodies. No definite fractures.
[2021-07-07 21:40] VITALS: BP 170/80; PULSE 102; O2SAT 99
[2021-07-07 21:43] VITALS: BMI 60.0
[2021-07-07 22:07] LABS: MANUAL DIFF FLAG NO
[2021-07-07 22:10] LABS: Basophils Percent Auto 0.3 % (0-2); Eosinophils Absolute Auto 0.2 X10*3/uL (0.0-0.4); Eosinophils Percent Auto 2.2 % (0-4); Hematocrit 43.9 % (42.0-52.0); Hemoglobin 14.3 g/dl (14.0-18.0); Imm Gran Abs Auto 0.05 X10*3/uL (0.00-0.03); Imm Gran Pct Auto 0.6 % (0.0-0.4); Lymphocytes Absolute Auto 1.8 X10*3/uL (1.2-4.9); Lymphocytes Percent Auto 20.4 % (20-40); Mean Corpuscular HGB Conc 32.6 g/dl (31.0-36.0); Mean Corpuscular Hemoglobin 28.3 pg (27.0-33.0); Mean Corpuscular Volume 86.8 fL (80.0-98.0); Mean Platelet Volume 9.9 fL (9.4-12.4); Monocytes Absolute Auto 0.7 X10*3/uL (0.1-1.2); Monocytes Percent Auto 7.3 % (2-11); Neutrophils Absolute Auto 6.3 x10*3/uL (2.0-8.3); Neutrophils Percent Auto 69.2 % (45-73); Platelet Count 300 X10*3/uL (160-400); Red Blood Count 5.06 X10*6/uL (4.60-5.80); Red Cell Distribution Width 13.5 % (11.0-16.0)
[2021-07-07 22:23] LABS: COVID-19 Test Negative (Negative)
[2021-07-07 22:28] LABS: Alanine Aminotransferase 47 U/L (0-40); Albumin Level 3.4 g/dL (3.5-5.0); Alkaline Phosphatase 91 U/L (39-117); Anion Gap 14 (12-20); Aspartate Amino Transferase 50 U/L (5-37); Bilirubin Total 0.3 mg/dL (0.0-1.0); Blood Urea Nitrogen 13 mg/dL (9-16); Calcium 9.1 mg/dL (8.4-10.2); Carbon Dioxide 28 mmol/L (22-29); Chloride 98 mmol/L (96-108); Creatinine Clr Calc Pharmacy 157.4; Estimated Glomerular Filt Rate > 60; Glucose Random 185 mg/dL (60-115); Potassium 4.5 mmol/L (3.3-5.1); Sodium 135 mmol/L (135-145); Total Protein 7.6 g/dL (6.5-8.0)
--- NOTE | 2021-07-07 23:33 | PC.NURSE ---
reported by ems pt called for knee pain and as they approached the ed pt then stated he has chest pain and wants to check in for 72 hours to rest. then pt stated s1 will reeval.
--- NOTE | 2021-07-07 23:59 | PC.NURSE ---
upon meeting with the pt on arrival and when placed in the pivot 1 pt denies chest pain and states he is not s1 or h1. pt is here for left leg discomfort. pt is in a wheel chair.
--- NOTE | 2021-07-08 00:04 | ED.CHESTPAIN ---
HPI - Chest Pain General Chief Complaint: Back Pain/Injury Stated Complaint: knee pain/left side numbness/cp Time Seen by Provider: 07/07/21 23:44 History of Present Illness HPI narrative: 51-year-old male history of diabetes. Presented today with having left knee pain. Patient initially complained to the nursing staff that he has right knee pain. Patient also has gained a lot a weight recently. Claims he used to be a proximally 250 lb now it is closer to 450. Patient denies any suicidal homicidal ideation and does not wish to see Psychiatry at this time. Patient denies having any thoughts of suicidal ideation. Patient is homeless wants to take the van in the morning. Patient complained that the pain in his knee is worse with ambulation. No worsened swelling. Both his legs are equally swollen. No diaphoresis. Related Data Home Medications Medication Instructions Recorded Confirmed aspirin 81 mg tablet 81 mg PO DAILY 12/17/20 05/07/21 montelukast 10 mg tablet 10 mg PO DAILY 12/17/20 05/07/21 acetaminophen 500 mg tablet 1,000 mg PO TID PRN 03/20/21 05/07/21 atorvastatin 20 mg tablet 1 tab PO DAILY 03/20/21 05/07/21 chlorhexidine gluconate 0.12 % 15 ml PO BID 03/20/21 05/07/21 mouthwash docusate sodium 100 mg capsule 100 mg PO BID 03/20/21 05/07/21 fluticasone 250 mcg-salmeterol 50 1 inh INHALATION BID 03/20/21 05/07/21 mcg/dose blistr powdr for inhalation (Advair Diskus) ibuprofen 800 mg tablet 800 mg PO Q8H PRN 03/20/21 05/07/21 lidocaine 4 % topical patch 1 patch TOPICAL DAILY PRN 03/20/21 05/07/21 nystatin 100,000 unit/gram topical 1 applic TOPICAL BID-TID PRN 03/20/21 05/07/21 powder (Nystop) sennosides 8.6 mg tablet (senna) 17.2 mg PO BEDTIME 03/20/21 05/07/21 insulin lispro 100 unit/mL 1 sliding scale dose SUBCUT 05/07/21 05/07/21 subcutaneous solution (Humalog USEASDIRECTD U-100 Insulin) loratadine 10 mg tablet 10 mg PO DAILY 05/07/21 05/07/21 metformin 500 mg tablet 1,000 mg PO BID 05/07/21 05/07/21 oxycodone 5 mg tablet 10 mg PO Q6H PRN 05/07/21 05/07/21 Previous Rx's Medication Instructions Recorded albuterol sulfate 90 mcg/actuation 2 puff INHALATION Q4-6H PRN #8.5 g 11/01/20 aerosol inhaler blood sugar diagnostic (FreeStyle #100 ea 05/17/21 Lite Strips) blood-glucose meter (FreeStyle #1 ea 05/17/21 Lite Meter) lancets 28 gauge (FreeStyle #100 ea 05/17/21 Lancets) metformin 1,000 mg tablet 1,000 mg PO BID #30 tab 05/17/21 Allergies Allergy/AdvReac Type Severity Reaction Status Date / Time risperidone [Risperdal] Allergy Unknown hives/rash Verified 05/18/21 05:53 lisinopril Allergy Unknown Verified 05/18/21 05:53 nitroglycerin [NITROGLYCERIN] AdvReac Unknown SEVERE Verified 05/18/21 05:53 HYPOTENSION Review of Systems Review of Systems: No chest pain or shortness of breath no diaphoresis Positive pain to the left knee No bowel urinary incontinence No bloody stool no suicidal homicidal ideation Yes all other systems are reviewed and are negative [facility] Past Medical History Attestation statement: The following information was validated with the patient. Medical History Arthritis Asthma COPD (chronic obstructive pulmonary disease) Diabetes mellitus DVT (deep venous thrombosis) HTN (hypertension) Sleep apnea Surgical History History of bowel resection Social History Social History Alcohol intake: never Patient Tobacco Use Status: Former Tobacco user Substance Use Type: Marijuana Advance Directives: Yes Advance Directives on File: Yes Advance Directives Date on File: 12/18/20 Physical Exam Vital Signs: Vital Signs: BMI result Body Mass Index 60.0 Appearance: Alert. Oriented X3. No acute distress. Eyes: Pupils equal, round and reactive to light. ENT: Pharynx normal. Neck: Normal inspection. Neck supple. No lymph nodes noted. No crepitus CVS: Normal heart rate and rhythm. Pulses normal. Normal S1 and S2 Respiratory: No respiratory distress. Breath sounds normal. No Wheezing. No rales Abdomen: Soft and nontender. No rigidity. No distention. good BS x4 Skin: Skin warm and dry. Normal skin color. Normal skin turgor. Extremities: Neurovascular intact to all extremities. No Lacerations. No Rash. there is no gross edema noted in bilateral lower extremity. Sensation bilateral lower extremity intact. Very large bilateral lower extremity legs that is approximately equal in size. Range of motion at knee intact. There is no redness. No tenderness on palpation of the patella, medial collateral, lateral collateral ligaments. Distal pulses bilaterally intact. Neuro: Oriented X 3. No motor deficit. No sensory deficit. Moving all extermities. No slurred speech MDM - Chest Pain MDM Narrative Medical decision making narrative: X-ray of the knee showed no acute fractures. Labs consistent with diabetic. White count is normal hemoglobin is baseline. Will discharge patient home. Patient is not suicidal not homicidal. Medical Records Data Attestation: I reviewed the patient's medical records. Lab Data Attestation: I reviewed the patient's lab results. Result diagrams: 07/07/21 22:02 07/07/21 22:02 Labs: Lab Results 07/07/21 07/07/21 07/07/21 Range/Units 22:02 22:02 22:02 WBC 9.0 (4.8-10.8) X10*3/uL RBC 5.06 (4.60-5.80) X10*6/uL Hgb 14.3 (14.0-18.0) g/dl Hct 43.9 (42.0-52.0) % MCV 86.8 (80.0-98.0) fL MCH 28.3 (27.0-33.0) pg MCHC 32.6 (31.0-36.0) g/dl RDW 13.5 (11.0-16.0) % Plt Count 300 (160-400) X10*3/uL MPV 9.9 (9.4-12.4) fL Immature Gran % (Auto) 0.6 H (0.0-0.4) % Neut % (Auto) 69.2 (45-73) % Lymph % (Auto) 20.4 (20-40) % Hancock % (Auto) 7.3 (2-11) % Eos % (Auto) 2.2 (0-4) % Baso % (Auto) 0.3 (0-2) % Lymph # (Auto) 1.8 (1.2-4.9) X10*3/uL Hancock # (Auto) 0.7 (0.1-1.2) X10*3/uL Eos # (Auto) 0.2 (0.0-0.4) X10*3/uL Baso # (Auto) 0.0 (0.0-0.2) X10*3/uL Abs Immat Gran (auto) 0.05 H (0.00-0.03) X10*3/uL Absolute Neuts (auto) 6.3 (2.0-8.3) x10*3/uL Absolute Nucleated RBC 0.000 (0.0-0.012) X10*3/uL Nucleated RBC % (auto) 0.0 (0.0-0.2) /100WBC Sodium 135 (135-145) mmol/L Potassium 4.5 (3.3-5.1) mmol/L Chloride 98 (96-108) mmol/L Carbon Dioxide 28 (22-29) mmol/L Anion Gap 14 (12-20) BUN 13 (9-16) mg/dL Creatinine 0.93 (0.5-1.4) mg/dL Estim Creat Clear Calc 157.4 Estimated GFR > 60 Random Glucose 185 H (60-115) mg/dL Calcium 9.1 (8.4-10.2) mg/dL Total Bilirubin 0.3 (0.0-1.0) mg/dL AST 50 H (5-37) U/L ALT 47 H (0-40) U/L Alkaline Phosphatase 91 (39-117) U/L Troponin I High Sens 4.0 (<3.5-35.0) ng/L Total Protein 7.6 (6.5-8.0) g/dL Albumin 3.4 L (3.5-5.0) g/dL COVID-19 ([facility]) (Negative) COVID-19 Clin Com 07/07/21 Range/Units 22:02 WBC (4.8-10.8) X10*3/uL RBC (4.60-5.80) X10*6/uL Hgb (14.0-18.0) g/dl Hct (42.0-52.0) % MCV (80.0-98.0) fL MCH (27.0-33.0) pg MCHC (31.0-36.0) g/dl RDW (11.0-16.0) % Plt Count (160-400) X10*3/uL MPV (9.4-12.4) fL Immature Gran % (Auto) (0.0-0.4) % Neut % (Auto) (45-73) % Lymph % (Auto) (20-40) % Hancock % (Auto) (2-11) % Eos % (Auto) (0-4) % Baso % (Auto) (0-2) % Lymph # (Auto) (1.2-4.9) X10*3/uL Hancock # (Auto) (0.1-1.2) X10*3/uL Eos # (Auto) (0.0-0.4) X10*3/uL Baso # (Auto) (0.0-0.2) X10*3/uL Abs Immat Gran (auto) (0.00-0.03) X10*3/uL Absolute Neuts (auto) (2.0-8.3) x10*3/uL Absolute Nucleated RBC (0.0-0.012) X10*3/uL Nucleated RBC % (auto) (0.0-0.2) /100WBC Sodium (135-145) mmol/L Potassium (3.3-5.1) mmol/L Chloride (96-108) mmol/L Carbon Dioxide (22-29) mmol/L Anion Gap (12-20) BUN (9-16) mg/dL Creatinine (0.5-1.4) mg/dL Estim Creat Clear Calc Estimated GFR Random Glucose (60-115) mg/dL Calcium (8.4-10.2) mg/dL Total Bilirubin (0.0-1.0) mg/dL AST (5-37) U/L ALT (0-40) U/L Alkaline Phosphatase (39-117) U/L Troponin I High Sens (<3.5-35.0) ng/L Total Protein (6.5-8.0) g/dL Albumin (3.5-5.0) g/dL COVID-19 ([facility]) Negative (Negative) COVID-19 Clin Com See Note Discharge Plan Discharge Clinical Impression: Arthritis Patient Disposition: Home, Self-Care Instructions: Osteoarthritis (ED) Prescriptions: No Action albuterol sulfate 90 mcg/actuation HFA aerosol inhaler 2 puff inhalation Q4-6H PRN (Reason: shortness of breath or wheezing) Qty: 8.5 0RF montelukast 10 mg Tablet 10 mg PO DAILY 0RF aspirin 81 mg Tablet 81 mg PO DAILY 0RF metformin 500 mg Tablet 1,000 mg PO BID 0RF insulin lispro [Humalog U-100 Insulin] 100 unit/mL Solution 1 sliding scale dose SUBCUT USEASDIRECTD 0RF Protocol: Insulin Correction Scale Less than or equal to 110 ---- Give (units): 0 111 to 150 Give (units): 0 151 to 200 Give (units): 2 201 to 250 Give (units): 4 251 to 300 Give (units): 6 301 to 350 Give (units): 8 Greater than 350 Give (units): 10 Call MD if Blood Glucose > : 350 loratadine 10 mg Tablet 10 mg PO DAILY 0RF oxycodone 5 mg Tablet 10 mg PO Q6H PRN (Reason: Pain) 0RF (DME) blood-glucose meter [FreeStyle Lite Meter] Kit See Rx Instructions .Route Qty: 1 0RF Rx Instructions: As directed (DME) FreeStyle Lite Strips Strip See Rx Instructions .Route Qty: 100 0RF Rx Instructions: As directed (DME) lancets [FreeStyle Lancets] 28 gauge misc See Rx Instructions .Route Qty: 100 0RF Rx Instructions: As directed metformin 1,000 mg tablet 1,000 mg PO BID Qty: 30 0RF fluticasone propion-salmeterol [Advair Diskus] 250-50 mcg/dose Blister With Device 1 inh INHALATION BID 0RF sennosides [senna] 8.6 mg Tablet 17.2 mg PO BEDTIME 0RF atorvastatin 20 mg tablet 1 tab PO DAILY 0RF lidocaine 4 % Adhesive Patch,Medicated 1 patch TOPICAL DAILY PRN (Reason: knee pain) 0RF ibuprofen 800 mg Tablet 800 mg PO Q8H PRN (Reason: Pain) 0RF acetaminophen 500 mg Tablet 1,000 mg PO TID PRN (Reason: Pain) 0RF docusate sodium 100 mg Capsule 100 mg PO BID 0RF nystatin [Nystop] 100,000 unit/gram powder 1 applic topical BID-TID PRN (Reason: Rash) 0RF chlorhexidine gluconate 0.12 % mouthwash 15 ml PO BID 0RF Referrals: Physician,Unknown J [Primary Care Provider] -
--- NOTE | 2021-07-08 01:25 | PC.NURSE ---
PT REQUESTING MULTIPLE GINGERALES AND SANDWICHES.
== END 2021-07-08 01:25 | disposition home or self-care (01) ==
PROVIDERS: Emergency Provider Emergency Medicine Emergency Medical Services
DX: M54.50 Low back pain, unspecified (principal); M25.561 Pain in right knee; M25.562 Pain in left knee; Z20.822 Contact with and (suspected) exposure to COVID-19; Z79.899 Other long term (current) drug therapy
CPT/HCPCS: 73564; 80053; 84484; 85025; 87635; 93005; 99283; 99284

== ENCOUNTER 2021-08-12 20:12 | Emergency (ER) | payer OTHER, SELFPAY ==
--- NOTE | ~2021-08-12 | XR_ITS ---
EXAMINATION: XR SHOULDER, RIGHT CLINICAL INFORMATION: Fall. COMPARISON: Radiograph of the right shoulder dated from 05/12/2021. TECHNIQUE: Three views of the right shoulder. FINDINGS: No acute fracture or malalignment. The humeral head remains well-seated in the glenoid. Mild degenerative osteoarthritis of the acromioclavicular joint. No abnormal soft tissue calcifications. XR/XR shoulder RT min 2V IMPRESSION: No acute fractures or malalignment.
--- NOTE | ~2021-08-12 | XR_ITS ---
EXAMINATION: XR CLAVICLE, RIGHT CLINICAL INFORMATION: Fall. COMPARISON: Chest radiograph dated from 05/18/2021. TECHNIQUE: Two views of the right clavicle. FINDINGS: No acute fractures or malalignment. Degenerative osteoarthritis of the acromioclavicular joint. No abnormal soft tissue calcifications. XR/XR clavicle RT IMPRESSION: No acute fractures or malalignment.
[2021-08-12 20:24] VITALS: BP 150/80; PULSE 104; O2SAT 99
[2021-08-12 20:39] VITALS: BP 141/92; PULSE 104; RESP 18; TEMP 36.7; O2SAT 95; BMI 58.8
--- NOTE | 2021-08-12 22:33 | ED.GENADULT ---
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 Patient states he was in his rolling wheelchair which got caught on the cement and fell, denies head trauma or LOC. patient reports he has no ride back to his current alf facility as was on a day pass visiting family. Requesting possible facility closer to home so that the family can visit. Denies fever, numbness, tingling, weakness Onset (ago): hour(s) Related Data Home Medications Medication Instructions Recorded Confirmed aspirin 81 mg tablet 81 mg PO DAILY 12/17/20 05/07/21 montelukast 10 mg tablet 10 mg PO DAILY 12/17/20 05/07/21 acetaminophen 500 mg tablet 1,000 mg PO TID PRN 03/20/21 05/07/21 atorvastatin 20 mg tablet 1 tab PO DAILY 03/20/21 05/07/21 chlorhexidine gluconate 0.12 % 15 ml PO BID 03/20/21 05/07/21 mouthwash docusate sodium 100 mg capsule 100 mg PO BID 03/20/21 05/07/21 fluticasone 250 mcg-salmeterol 50 1 inh INHALATION BID 03/20/21 05/07/21 mcg/dose blistr powdr for inhalation (Advair Diskus) ibuprofen 800 mg tablet 800 mg PO Q8H PRN 03/20/21 05/07/21 lidocaine 4 % topical patch 1 patch TOPICAL DAILY PRN 03/20/21 05/07/21 nystatin 100,000 unit/gram topical 1 applic TOPICAL BID-TID PRN 03/20/21 05/07/21 powder (Nystop) sennosides 8.6 mg tablet (senna) 17.2 mg PO BEDTIME 03/20/21 05/07/21 insulin lispro 100 unit/mL 1 sliding scale dose SUBCUT 05/07/21 05/07/21 subcutaneous solution (Humalog USEASDIRECTD U-100 Insulin) loratadine 10 mg tablet 10 mg PO DAILY 05/07/21 05/07/21 metformin 500 mg tablet 1,000 mg PO BID 05/07/21 05/07/21 oxycodone 5 mg tablet 10 mg PO Q6H PRN 05/07/21 05/07/21 Previous Rx's Medication Instructions Recorded albuterol sulfate 90 mcg/actuation 2 puff INHALATION Q4-6H PRN #8.5 g 11/01/20 aerosol inhaler blood sugar diagnostic (FreeStyle #100 ea 05/17/21 Lite Strips) blood-glucose meter (FreeStyle #1 ea 05/17/21 Lite Meter) lancets 28 gauge (FreeStyle #100 ea 05/17/21 Lancets) metformin 1,000 mg tablet 1,000 mg PO BID #30 tab 05/17/21 Allergies Allergy/AdvReac Type Severity Reaction Status Date / Time risperidone [Risperdal] Allergy Unknown hives/rash Verified 05/18/21 05:53 lisinopril Allergy Unknown Verified 05/18/21 05:53 nitroglycerin [NITROGLYCERIN] AdvReac Unknown SEVERE Verified 05/18/21 05:53 HYPOTENSION Review of Systems Review of Systems: Constitutional: No Fever, No Chills, No Fatigue, No Malaise ENT/Mouth: No Ear Pain, No Nasal Congestion, No sore throat, No Rhinorrhea, No Swallowing Difficulty Eyes: No Eye Pain, No Swelling, No Redness, No Vision Changes Cardiovascular: No Chest Pain, No SOB, No Dyspnea on Exertion, No Orthopnea, No Edema, No Palpitations Respiratory: No Cough, No Dyspnea Gastrointestinal: No Nausea, No Vomiting, No Diarrhea, No Constipation, No Abdominal pain Genitourinary: No Dysuria, No Urgency, No Flank Pain, No Urinary Flow Changes Musculoskeletal: + joint pain, No Myalgias, No Joint Swelling Skin: + Skin Lesions, No rash Neuro: No Weakness, No Numbness, No Paresthesias, No Loss of Consciousness, No Dizziness, No Headache Yes all other systems are reviewed and are negative [facility] Past Medical History Attestation statement: The following information was validated with the patient. Medical History Arthritis Asthma COPD (chronic obstructive pulmonary disease) Diabetes mellitus DVT (deep venous thrombosis) HTN (hypertension) Sleep apnea Surgical History History of bowel resection Social History Social History Alcohol intake: never Patient Tobacco Use Status: Former Tobacco user Substance Use Type: Marijuana Advance Directives: Yes Advance Directives on File: Yes Advance Directives Date on File: 12/18/20 Physical Exam ED Vital Signs: Vital Signs - 24 hr 08/12/21 20:39 Temperature 98.1 F Pulse Rate 104 H Respiratory Rate 18 Blood Pressure 141/92 H Pulse Oximetry 95 BMI result Body Mass Index 58.8 Const General: cooperative and no acute distress Orientation/consciousness: patient oriented x3 Limitations: no limitations HENMT Head: Yes normal to inspection and Yes atraumatic Ears: hearing grossly normal bilaterally General nose exam: Normal external nose present Face and sinus: Yes normal facial exam Eyes General: appearance normal, both eyes and all related structures EOM: EOMs intact bilaterally Neck Neck: Yes normal visual inspection and Yes no meningeal signs Chest Chest palpation & inspection: normal inspection of the chest Resp Effort & Inspection: normal respiratory effort and no respiratory distress Cardio Rate: regular rate Heart sounds: S1 normal heart sound present and S2 normal heart sound present GI Inspection: Yes normal to inspection Skin Other: + abrasion to right zuniga. No surrounding erythema, no streaking, no fluctuance/induration or drainage Neuro General: patient oriented x3, tone normal and no meningeal signs Gait exam (Neuro): Normal gait present Extrem Other: Right shoulder/trapezius muscle and clavicle with mild tenderness. No appreciable deformity. Neurovascular intact distally. Full range of motion intact. General: Yes normal to inspection Course Course Course Narrative: XR shoulder RT min 2V / XR clavicle RT IMPRESSION: No acute fractures or malalignment. > results discussed with patient. 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 On exam mildly tachycardic likely from pain, NAD, nontoxic appearing, physical exam as above. Concern for shoulder sprain/tendon/ligamental injury. Rule out fracture. Discussed with patient if he is already currently placed at nursing facility that likelihood of getting him placed at another facility will not happen. Will discuss with Case Management/charge nurse Plan: Clavicle/shoulder x-rays, clean wound/apply bacitracin Medical Records Medical records reviewed: Yes I reviewed the patient's medical records. Lab Data Lab results reviewed: Yes I reviewed the patient's lab results. Discharge Plan Discharge Clinical Impression: Abrasion, Acute shoulder pain, Fall Patient Disposition: Home, Self-Care Instructions: Arthralgia (ED) Additional Instructions: Your x-rays were unremarkable. Take Tylenol and Motrin as needed for pain. Keep abrasions clean. Apply bacitracin or Neosporin as needed. Please follow-up with her doctor If symptoms persist or worsen return to the emergency department Prescriptions: No Action albuterol sulfate 90 mcg/actuation HFA aerosol inhaler 2 puff inhalation Q4-6H PRN (Reason: shortness of breath or wheezing) Qty: 8.5 0RF montelukast 10 mg Tablet 10 mg PO DAILY 0RF aspirin 81 mg Tablet 81 mg PO DAILY 0RF metformin 500 mg Tablet 1,000 mg PO BID 0RF insulin lispro [Humalog U-100 Insulin] 100 unit/mL Solution 1 sliding scale dose SUBCUT USEASDIRECTD 0RF Protocol: Insulin Correction Scale Less than or equal to 110 ---- Give (units): 0 111 to 150 Give (units): 0 151 to 200 Give (units): 2 201 to 250 Give (units): 4 251 to 300 Give (units): 6 301 to 350 Give (units): 8 Greater than 350 Give (units): 10 Call MD if Blood Glucose > : 350 loratadine 10 mg Tablet 10 mg PO DAILY 0RF oxycodone 5 mg Tablet 10 mg PO Q6H PRN (Reason: Pain) 0RF (DME) blood-glucose meter [FreeStyle Lite Meter] Kit See Rx Instructions .Route Qty: 1 0RF Rx Instructions: As directed (DME) FreeStyle Lite Strips Strip See Rx Instructions .Route Qty: 100 0RF Rx Instructions: As directed (DME) lancets [FreeStyle Lancets] 28 gauge misc See Rx Instructions .Route Qty: 100 0RF Rx Instructions: As directed metformin 1,000 mg tablet 1,000 mg PO BID Qty: 30 0RF fluticasone propion-salmeterol [Advair Diskus] 250-50 mcg/dose Blister With Device 1 inh INHALATION BID 0RF sennosides [senna] 8.6 mg Tablet 17.2 mg PO BEDTIME 0RF atorvastatin 20 mg tablet 1 tab PO DAILY 0RF lidocaine 4 % Adhesive Patch,Medicated 1 patch TOPICAL DAILY PRN (Reason: knee pain) 0RF ibuprofen 800 mg Tablet 800 mg PO Q8H PRN (Reason: Pain) 0RF acetaminophen 500 mg Tablet 1,000 mg PO TID PRN (Reason: Pain) 0RF docusate sodium 100 mg Capsule 100 mg PO BID 0RF nystatin [Nystop] 100,000 unit/gram powder 1 applic topical BID-TID PRN (Reason: Rash) 0RF chlorhexidine gluconate 0.12 % mouthwash 15 ml PO BID 0RF Referrals: Physician,Unknown J [Primary Care Provider] -
[2021-08-12] MEDS: Bacitracin Oint 14 GM TUBE 1 APPL TOPICAL (22:50)
--- NOTE | 2021-08-12 22:51 | PC.NURSE ---
cleansed abrasion to left zuniga and applied bacitracin as ordered to area . patient tolerated well .
--- NOTE | 2021-08-13 | PC.NURSE ---
Addendum entered by Tiffanie Lopez 08/13/21 00:19: April from [facility] calling this RN back. Per April, pt left the facility AMA on 08/11. This RN discussing @ bedside with pt, pt adamantly denying leaving facilty, states they forged his signature. Pt becoming frustrated and angry when this RN was asking if he left the facility on 08/11. Per April, pt is unable to return as a bed was not held for him since he left AMA. Pt watching TV on his cell phone, this RN advising pt to call family for a ride home. Emmie RN at bedside providing pt with discharge paperwork. Original Note: Pt insistent that he arrives from [facility] in [place], [address]. Pt unsure how he is to return to facility. This RN contacting facility, speaking with RN who was unable to find pt in the nursing center directory. Facility to call this RN back.
== END 2021-08-13 00:25 | disposition home or self-care (01) ==
PROVIDERS: Emergency Provider Emergency Medicine Emergency Medical Services
DX: S40.211A Abrasion of right shoulder, initial encounter (principal); S80.811A Abrasion, right lower leg, initial encounter; M25.511 Pain in right shoulder; W05.0XXA Fall from non-moving wheelchair, initial encounter; Y93.9 Activity, unspecified; Y92.9 Unspecified place or not applicable; Y99.9 Unspecified external cause status; Z87.891 Personal history of nicotine dependence; Z79.899 Other long term (current) drug therapy
CPT/HCPCS: 73000; 73030; 99283

== ENCOUNTER 2021-09-04 22:23 | Emergency (ER) | payer OTHER, SELFPAY ==
--- NOTE | ~2021-09-04 | XR_ITS ---
EXAMINATION: THORACIC SPINE, LUMBAR SPINE, RIGHT SHOULDER, LEFT KNEE CLINICAL INFORMATION: Fall COMPARISON: Left knee 07/08/2021, right shoulder 08/12/2021, chest radiograph 08/08/2014 TECHNIQUE: 3 views thoracic spine, 4 views lumbar spine, 2, single view right shoulder views left knee FINDINGS: Left knee: Severe degenerative changes are present in the left knee with advanced tricompartmental disease and innumerable calcified loose intra-articular bodies. There is a small incompletely healed chronic fracture involving the medial tibial plateau, unchanged. Right shoulder: Limited single view of the right shoulder shows no evidence of dislocation or fracture. Some subchondral cyst formation present region of the greater tuberosity which may be secondary to rotator cuff/degenerative change. Thoracic spine: Degenerative changes are present throughout the thoracic spine with large osteophytes. Disc heights are well preserved. Some mild disc space narrowing is present throughout. No acute fractures or bony destructive lesions. Paraspinal soft tissues are unremarkable without evidence of hemorrhage. Lumbar spine: Moderate spondylitic changes are present throughout the lumbar spine with predominantly endplate changes with sclerosis and osteophytes. Vertebral body heights and disc spaces are fairly well-maintained. No fractures are seen. XR/XR knee LT 2V IMPRESSION: No evidence of an acute traumatic osseous injury after the patient's fall. Degenerative changes described above, especially in the left knee.
--- NOTE | ~2021-09-04 | XR_ITS ---
EXAMINATION: THORACIC SPINE, LUMBAR SPINE, RIGHT SHOULDER, LEFT KNEE CLINICAL INFORMATION: Fall COMPARISON: Left knee 07/08/2021, right shoulder 08/12/2021, chest radiograph 08/08/2014 TECHNIQUE: 3 views thoracic spine, 4 views lumbar spine, 2, single view right shoulder views left knee FINDINGS: Left knee: Severe degenerative changes are present in the left knee with advanced tricompartmental disease and innumerable calcified loose intra-articular bodies. There is a small incompletely healed chronic fracture involving the medial tibial plateau, unchanged. Right shoulder: Limited single view of the right shoulder shows no evidence of dislocation or fracture. Some subchondral cyst formation present region of the greater tuberosity which may be secondary to rotator cuff/degenerative change. Thoracic spine: Degenerative changes are present throughout the thoracic spine with large osteophytes. Disc heights are well preserved. Some mild disc space narrowing is present throughout. No acute fractures or bony destructive lesions. Paraspinal soft tissues are unremarkable without evidence of hemorrhage. Lumbar spine: Moderate spondylitic changes are present throughout the lumbar spine with predominantly endplate changes with sclerosis and osteophytes. Vertebral body heights and disc spaces are fairly well-maintained. No fractures are seen. XR/XR thoracic spine 3V IMPRESSION: No evidence of an acute traumatic osseous injury after the patient's fall. Degenerative changes described above, especially in the left knee.
--- NOTE | ~2021-09-04 | XR_ITS ---
EXAMINATION: THORACIC SPINE, LUMBAR SPINE, RIGHT SHOULDER, LEFT KNEE CLINICAL INFORMATION: Fall COMPARISON: Left knee 07/08/2021, right shoulder 08/12/2021, chest radiograph 08/08/2014 TECHNIQUE: 3 views thoracic spine, 4 views lumbar spine, 2, single view right shoulder views left knee FINDINGS: Left knee: Severe degenerative changes are present in the left knee with advanced tricompartmental disease and innumerable calcified loose intra-articular bodies. There is a small incompletely healed chronic fracture involving the medial tibial plateau, unchanged. Right shoulder: Limited single view of the right shoulder shows no evidence of dislocation or fracture. Some subchondral cyst formation present region of the greater tuberosity which may be secondary to rotator cuff/degenerative change. Thoracic spine: Degenerative changes are present throughout the thoracic spine with large osteophytes. Disc heights are well preserved. Some mild disc space narrowing is present throughout. No acute fractures or bony destructive lesions. Paraspinal soft tissues are unremarkable without evidence of hemorrhage. Lumbar spine: Moderate spondylitic changes are present throughout the lumbar spine with predominantly endplate changes with sclerosis and osteophytes. Vertebral body heights and disc spaces are fairly well-maintained. No fractures are seen. XR/XR lumbar spine 2-3V IMPRESSION: No evidence of an acute traumatic osseous injury after the patient's fall. Degenerative changes described above, especially in the left knee.
--- NOTE | ~2021-09-04 | XR_ITS ---
EXAMINATION: THORACIC SPINE, LUMBAR SPINE, RIGHT SHOULDER, LEFT KNEE CLINICAL INFORMATION: Fall COMPARISON: Left knee 07/08/2021, right shoulder 08/12/2021, chest radiograph 08/08/2014 TECHNIQUE: 3 views thoracic spine, 4 views lumbar spine, 2, single view right shoulder views left knee FINDINGS: Left knee: Severe degenerative changes are present in the left knee with advanced tricompartmental disease and innumerable calcified loose intra-articular bodies. There is a small incompletely healed chronic fracture involving the medial tibial plateau, unchanged. Right shoulder: Limited single view of the right shoulder shows no evidence of dislocation or fracture. Some subchondral cyst formation present region of the greater tuberosity which may be secondary to rotator cuff/degenerative change. Thoracic spine: Degenerative changes are present throughout the thoracic spine with large osteophytes. Disc heights are well preserved. Some mild disc space narrowing is present throughout. No acute fractures or bony destructive lesions. Paraspinal soft tissues are unremarkable without evidence of hemorrhage. Lumbar spine: Moderate spondylitic changes are present throughout the lumbar spine with predominantly endplate changes with sclerosis and osteophytes. Vertebral body heights and disc spaces are fairly well-maintained. No fractures are seen. XR/XR shoulder RT 1V IMPRESSION: No evidence of an acute traumatic osseous injury after the patient's fall. Degenerative changes described above, especially in the left knee.
--- NOTE | ~2021-09-04 | XR_ITS ---
EXAMINATION: XR KNEE, LEFT CLINICAL INFORMATION: Knee injury. Tender to palpation. COMPARISON: Radiograph of the left knee 09/04/2021. TECHNIQUE: Four views of the left knee. FINDINGS: No acute fractures or malalignment. Again noted severe tricompartmental osteoarthritis with joint space narrowing, subcortical sclerosis and prominent osteophytes. Small joint effusion and diffuse soft tissue edema, unchanged. XR/XR knee LT 4V IMPRESSION: No acute fractures or malalignment. Advanced tricompartmental degenerative osteoarthritis.
[2021-09-04 22:33] VITALS: BP 130/68; PULSE 89; RESP 16; TEMP 36.6; O2SAT 92
[2021-09-04 22:39] VITALS: PULSE 95; RESP 16; TEMP 36.6; O2SAT 94; BMI 60.2
[2021-09-04 22:52] LABS: Glucose, Whole Blood 236 mg/dL (60-115)
[2021-09-04 22:53] LABS: MANUAL DIFF FLAG NO
[2021-09-04] MEDS: Acetaminophen 325 MG TABLET 975 MG PO (22:53)
[2021-09-04] MEDS: oxyCODONE HCl Immed Release 5 MG TABLET PO (22:54)
[2021-09-04 22:55] LABS: Basophils Percent Auto 0.4 % (0-2); Eosinophils Absolute Auto 0.3 X10*3/uL (0.0-0.4); Eosinophils Percent Auto 3.2 % (0-4); Hematocrit 40.8 % (42.0-52.0); Hemoglobin 13.2 g/dl (14.0-18.0); Imm Gran Abs Auto 0.13 X10*3/uL (0.00-0.03); Imm Gran Pct Auto 1.6 % (0.0-0.4); Lymphocytes Absolute Auto 1.6 X10*3/uL (1.2-4.9); Lymphocytes Percent Auto 20.2 % (20-40); Mean Corpuscular HGB Conc 32.4 g/dl (31.0-36.0); Mean Corpuscular Hemoglobin 28.3 pg (27.0-33.0); Mean Corpuscular Volume 87.6 fL (80.0-98.0); Mean Platelet Volume 9.2 fL (9.4-12.4); Monocytes Absolute Auto 0.6 X10*3/uL (0.1-1.2); Monocytes Percent Auto 6.8 % (2-11); Neutrophils Absolute Auto 5.5 x10*3/uL (2.0-8.3); Neutrophils Percent Auto 67.8 % (45-73); Platelet Count 279 X10*3/uL (160-400); Red Blood Count 4.66 X10*6/uL (4.60-5.80); Red Cell Distribution Width 13.3 % (11.0-16.0); White Blood Count 8.1 X10*3/uL (4.8-10.8)
--- NOTE | 2021-09-04 23:07 | ED.FALL ---
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 Time: No <APOORVA Mcgill - Last Filed: 09/05/21 00:11> Discharge Plan Discharge Clinical Impression: Morbid obesity with BMI of 60.0-69.9, adult, Recurrent falls while walking <APOORVA Mcgill - Last Filed: 09/05/21 00:11> Patient Disposition: Home, Self-Care <APOORVA Mcgill - Last Filed: 09/05/21 00:11> Instructions: Fall Prevention (ED) <APOORVA Mcgill - Last Filed: 09/05/21 00:11> Additional Instructions: It was recommended that you go to short-term rehab but you declined this. <APOORVA Mcgill - Last Filed: 09/05/21 00:11> Prescriptions: No [facility] albuterol sulfate 90 mcg/actuation HFA aerosol inhaler 2 puff inhalation Q4-6H PRN (Reason: shortness of breath or wheezing) Qty: 8.5 0RF montelukast 10 mg Tablet 10 mg PO DAILY oxycodone 5 mg Tablet 10 mg PO Q8H PRN (Reason: Pain) (DME) blood-glucose meter [FreeStyle Lite Meter] Kit See Rx Instructions .Route Qty: 1 0RF Rx Instructions: As directed (DME) FreeStyle Lite Strips Strip See Rx Instructions .Route Qty: 100 0RF Rx Instructions: As directed (DME) lancets [FreeStyle Lancets] 28 gauge misc See Rx Instructions .Route Qty: 100 0RF Rx Instructions: As directed metformin 1,000 mg tablet 1,000 mg PO BID Qty: 30 0RF atorvastatin 20 mg tablet 1 tab PO DAILY glipizide 5 mg Tablet 2.5 mg PO BID <APOORVA Mcgill - Last Filed: 09/05/21 00:11> Referrals: [facility] [Other] Rodo Qiu MD [Primary Care Provider] - <APOORVA Mcgill - Last Filed: 09/05/21 00:11>
[2021-09-04 23:09] LABS: Anion Gap 13 (12-20); Blood Urea Nitrogen 11 mg/dL (9-16); Calcium 8.5 mg/dL (8.4-10.2); Carbon Dioxide 29 mmol/L (22-29); Chloride 98 mmol/L (96-108); Creatinine Clr Calc Pharmacy 172.5; Estimated Glomerular Filt Rate > 60; Glucose Random 254 mg/dL (60-115); Potassium 3.9 mmol/L (3.3-5.1); Sodium 136 mmol/L (135-145)
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
[2021-09-04 23:15] LABS: COVID-19 Test Negative (Negative)
--- NOTE | 2021-09-04 23:25 | PC.NURSE ---
respiratory at bedside to place pt on cpap. pt desat to 60% when sleeping.
[2021-09-05 02:00] VITALS: BP 123/61; PULSE 91; RESP 29; O2SAT 92
[2021-09-05 05:21] VITALS: BP 124/61; PULSE 83; RESP 20; TEMP 36.5; O2SAT 92
[2021-09-05 11:46] VITALS: BP 151/86; PULSE 90; RESP 18; TEMP 36.4; O2SAT 98
--- NOTE | 2021-09-05 11:46 | PHA.MEDREC ---
Pharmacy Consult ? Medication Reconciliation Pharmacy has completed the medication reconciliation. Patient no longer at patient of Dr. Blanca Galan at [facility]. Patient's pharmacy yg had not recent fill history last being metformin for 30 days in May. Contacted the pharmacy of patient last facility; [facility], to get what patient was on in July 2021 as this is the most recent med history. Cece Ford, PharmD
--- NOTE | 2021-09-05 12:19 | PC.NURSE ---
pt is sleeping, awakes to stimulates, will continue to monitor, call guzman within reach.
--- NOTE | 2021-09-05 15:32 | MHC.CM.ED ---
Received case management consult overnight. Patient came to the ER due to a fall. Work up essentially negative. Physical therapy eval completed. Short term rehab is recommended. Patient is well known to case management. Patient is vaccinated and boosted. HCP verified to be on file. Patient has been difficult to place in the past due to weight. Referral broadcasted in [facility]. [facility] will be able to offer a bed when bariatric equipment and insurance auth can be obtained. Patient aware and agreeable. Anticipate patient will d/c to facility on 09/06. Continue to monitor for d/c needs.
--- NOTE | 2021-09-05 17:41 | PC.NURSE ---
Resume patient care at 1500- Patient alert and oriented. Sleeping most of shift, easily arousable. VSS. All needs met at this time.
[2021-09-05 18:21] LABS: Glucose, Whole Blood 204 mg/dL (60-115)
--- NOTE | 2021-09-05 19:27 | PC.NURSE ---
report received from YASSINE Flaherty
[2021-09-05 19:44] VITALS: BP 193/91; PULSE 103; RESP 20; TEMP 37.6; O2SAT 93
--- NOTE | 2021-09-05 19:59 | PC.NURSE ---
Addendum entered by Andreia Mckeon 09/06/21 06:54: Report given to YASSINE Grissom Original Note: pt alert and oriented. resting in bed. no signs of acute distress notice. breathing equally unlabored
[2021-09-05] MEDS: metFORMIN HCl 1,000 MG TABLET 1000 MG PO (20:13)
[2021-09-05] MEDS: glipiZIDE 5 MG TABLET 2.5 MG PO (20:13)
[2021-09-05 20:34] LABS: Glucose, Whole Blood 212 mg/dL (60-115)
[2021-09-05 21:36] VITALS: RESP 20
[2021-09-06 00:35] VITALS: PULSE 86; RESP 20; O2SAT 91
[2021-09-06] MEDS: Acetaminophen 325 MG TABLET 975 MG PO (01:46)
[2021-09-06 05:36] VITALS: BP 137/72; PULSE 94; RESP 20; TEMP 36.9; O2SAT 92
[2021-09-06 08:13] LABS: Glucose, Whole Blood 148 mg/dL (60-115)
[2021-09-06] MEDS: glipiZIDE 5 MG TABLET 2.5 MG PO ×2 (08:54→21:36)
[2021-09-06] MEDS: metFORMIN HCl 1,000 MG TABLET 1000 MG PO ×2 (08:54→21:36)
[2021-09-06] MEDS: Atorvastatin Calcium 20 MG TABLET PO (08:54)
[2021-09-06 12:08] LABS: Glucose, Whole Blood 185 mg/dL (60-115)
--- NOTE | 2021-09-06 12:21 | PC.NURSE ---
Patient resting with CPAP on. No distress. Denies pain. 12:00 poc 185. Requesting snacks and states, I eat what I want when attempting to educate on diabetic diet.
--- NOTE | 2021-09-06 15:31 | MHC.CM.ED ---
Patient remains in ER overflow. Insurance auth has been obtained. However, cpap will not be at the facility tonight. Patient scheduled to leave [facility] on 09/07 at 10am. [facility]. [facility] with chart. Patient, Praveena METZGER and Gayle GUERIN aware. Continue to monitor for d/c needs.
--- NOTE | 2021-09-06 17:19 | PC.NURSE ---
Pt c/o LLE pain after tech accidentally got foot stuck under wheelchair when he was coming over to main ED from overflow. Pt stating that he is unable to lift his leg. Provider and pharmacist in charge owner made aware.
[2021-09-06 18:39] VITALS: BP 207/81
[2021-09-06 21:23] VITALS: BP 164/78; PULSE 97; RESP 20; O2SAT 94
[2021-09-07] VITALS: PULSE 98; RESP 18; O2SAT 94
[2021-09-07 06:27] VITALS: BP 148/81; PULSE 88; RESP 18; TEMP 36.6; O2SAT 97
[2021-09-07 07:07] LABS: Glucose, Whole Blood 166 mg/dL (60-115)
[2021-09-07] MEDS: Atorvastatin Calcium 20 MG TABLET PO (08:42)
[2021-09-07] MEDS: glipiZIDE 5 MG TABLET 2.5 MG PO (08:42)
[2021-09-07] MEDS: metFORMIN HCl 1,000 MG TABLET 1000 MG PO (08:42)
[2021-09-07] MEDS: Montelukast Sodium 10 MG TABLET PO (08:42)
[2021-09-07 09:08] VITALS: BP 158/89; PULSE 91; RESP 18; TEMP 36.7; O2SAT 96
--- NOTE | 2021-09-07 09:57 | PC.NURSE ---
[facility] at 9[facility] from [facility] letting me know that the pt can't be transferred today because the facility still has not received the cpap machine. Per Leisa they will be receiving the machine on Thursday. I relayed the message to Selena Whalen who them informed me that she will relay the message to Coni Guerrero because she is the one doing case management today. YASSINE Centeno was also notified.
--- NOTE | 2021-09-07 09:59 | PC.NURSE ---
zen blackwell rn spoke with demetrice covarrubias (director of neurology, ). demetrice states that a cpap machine was ordered for the pt but it was not delivered and will not be delivered per company on thursday afternoon/evening because pt does not have his own cpap machine.
--- NOTE | 2021-09-07 10:03 | PC.NURSE ---
pt transfer to rehab facility will be delay until thursday. pt/md aware of plan of care.
--- NOTE | 2021-09-07 11:04 | MHC.CM.ED ---
Addendum entered by Coni Landon 09/07/21 12:34: ERIBERTO UNDERWOOD COMMUNICATIONS WITH RESPIRATORY THERAPY TIE INSPECTOR, [facility] DOES NOT LOAN OUT OUR CPAP DEVICES. PATIENT IS WELL KNOWN TO RESPIRATORY AND PATIENT REPORTEDLY SOLD HIS CPAP PATIENT MADE AWARE THAT CPAP IS NOT AVAILABLE AT FACILITY UNTIL Thursday09/09/21 PATIENT STATES THAT HE WANTS TO LEAVE. CASE MANAGEMENT ATTEMPTING TO REDIRECT AND CONVINCE TO REMAIN FOR CONTINUATION OF HEALTH HE IS AWARE THAT TRANSPORTATION WILL BE ARRANGED FOR A Thursday09/09/21 TRANSFER TO FACILITY. Original Note: CARYN (LIAISON FOR [facility]) HAS COMMUNICATED WITH ED STAFF THAT ADMISSION TO FACILITY WILL HAVE TO WAIT UNTIL Thursday09/09/21, FACILITY IS UNABLE TO SECURE PATIENT'S CPAP UNTIL THEN. THIS LEGAL CASHIER REVIEWED [employer] COMMUNICATION AND RESPONDED THAT CASE MANAGEMENT WILL FOLLOW UP ON THURSDAY. CONTACT WITH [facility] MADE VIA TELEPHONE CALL FROM Earnest TO INFORM OF ANOTHER DELAY IN TRANSPORT [facility] HAS CANCELLED THIS CALL. CASE MANAGEMENT TO FOLLOW UP WITH [facility] VIA [employer].
--- NOTE | 2021-09-07 12:12 | PC.NURSE ---
PT REQUESTING TO BE DISCHARGED GIVEN THAT IT APPEARS CPAP WILL NOT BE AVAILABLE TO HIM UNTIL THURSDAY AT ASSIGNED REHAB. CASE MGMT AWARE, ATTEMPTING TO FIND ALTERNATIVE SOLUTION
--- NOTE | 2021-09-07 13:45 | PC.NURSE ---
spoke with chidi archuleta (case managent) via [employer]. chidi states that [facility] is unable to loan a cpap machine at this time to the patient, so therefore pt can either wait for the rehab facility to get theirs on thursday or be discharged home today. pt was encouraged to wait until thursday and told about the risk of leaving without a cpap machine. pt is adamant about being discharged home and is requesting a bus pass. pt is lucid.
[2021-09-07 14:29] VITALS: BP 148/86; PULSE 103; RESP 18; TEMP 36.8; O2SAT 96
== END 2021-09-07 14:58 | disposition home or self-care (01) ==
PROVIDERS: Physician Assistant; Emergency Provider Emergency Medicine Emergency Medical Services; PCP Internal Medicine
DX: S39.92XA Unspecified injury of lower back, initial encounter (principal); S89.91XA Unspecified injury of right lower leg, initial encounter; W01.0XXA Fall on same level from slipping, tripping and stumbling without subsequent striking against object, initial encounter; M54.6 Pain in thoracic spine; M25.511 Pain in right shoulder; M25.512 Pain in left shoulder; E66.01 Morbid (severe) obesity due to excess calories; Z68.44 Body mass index [BMI] 60.0-69.9, adult; Y93.9 Activity, unspecified; Y92.9 Unspecified place or not applicable; Y99.9 Unspecified external cause status; Z91.81 History of falling; Z20.822 Contact with and (suspected) exposure to COVID-19; Z79.899 Other long term (current) drug therapy
CPT/HCPCS: 72072; 72100; 73020; 73560; 73564; 80048; 82947; 85025; 87635; 94660; 97162; 99285

== ENCOUNTER 2021-11-11 10:26 | Emergency (ER) | payer OTHER, SELFPAY ==
--- NOTE | ~2021-11-11 | XR_ITS ---
EXAMINATION: XR SHOULDER, RIGHT CLINICAL INFORMATION: Fall, pain. COMPARISON: Radiograph of the right shoulder 09/04/2021 and 08/12/2021. TECHNIQUE: Three views of the right shoulder. FINDINGS: No acute fracture or malalignment. Chronic Hill-Sachs deformity of the superolateral humerus. Moderate degenerative osteoarthritis of the right acromioclavicular joint. No abnormal soft tissue calcifications. The included portions of the right-sided ribs and right lung are within normal limits. XR/XR shoulder RT min 2V IMPRESSION: No acute fracture or malalignment. Moderate osteoarthrosis of the AC joint. Chronic Hill-Sachs deformity.
--- NOTE | ~2021-11-11 | XR_ITS ---
EXAMINATION: XR KNEE, LEFT CLINICAL INFORMATION: Fall, pain. COMPARISON: Radiograph of the left knee dated from 09/06/2021. TECHNIQUE: Two views of the left knee. FINDINGS: No acute fracture or malalignment. Again noted severe tricompartmental degenerative changes with joint space narrowing, subchondral sclerosis and osteophytes. Small joint effusion and diffuse soft tissue swelling, stable. XR/XR knee LT 2V IMPRESSION: No acute fracture or malalignment. Severe tricompartmental degenerative osteoarthritis.
--- NOTE | 2021-11-11 10:33 | ED_ITS ---
HPI - General Adult General Chief complaint: Fall Stated complaint: R SHOULD/L KNEE PAIN,-LOC [place] [facility] Time Seen by Provider: 11/11/21 10:32 Source: patient and EMS Mode of arrival: EMS Limitations: no limitations History of Present Illness HPI narrative: Patient is a 51 year old male presenting to the emergency department today with left knee pain and right shoulder pain after a fall. Patient states that he was on his way into his orthopedic appointment when his left knee buckled and he fell, landing on his left knee and fall back onto right shoulder. Patient denies any loss of consciousness with the incident. Patient denies any dizziness, lightheadedness, abdominal pain, nausea, vomiting, fever, chills, blurry vision, double vision, loss of vision, chest pain, difficulty breathing, shortness of breath, back pain, night sweats, pain with urination, increased urinary frequency, increased urinary urgency, blood in his urine or stool, syncope or a near syncopal episode, bowel incontinence, bladder incontinence, bowel retention, bladder retention, or any other complaints at this time. Onset (ago): minute(s) Radiation: non-radiation Severity: mild Severity scale (1-10): 2 Quality: aching and dull Pain Consistency: constant Relieving factors: none Exacerbating factors: none Associated symptoms: denies other symptoms Treatments prior to arrival: none Related Data Home Medications Medication Instructions Recorded Confirmed montelukast 10 mg tablet 10 mg PO DAILY 12/17/20 09/05/21 atorvastatin 20 mg tablet 1 tab PO DAILY 03/20/21 09/05/21 oxycodone 5 mg tablet 10 mg PO Q8H PRN Pain 05/07/21 09/05/21 glipizide 5 mg tablet 2.5 mg PO BID 09/05/21 09/05/21 Previous Rx's Medication Instructions Recorded albuterol sulfate 90 mcg/actuation 2 puff inhalation Q4-6H PRN 11/01/20 aerosol inhaler shortness of breath or wheezing #8.5 grams blood sugar diagnostic (FreeStyle #100 ea 05/17/21 Lite Strips) blood-glucose meter (FreeStyle #1 ea 05/17/21 Lite Meter kit) lancets 28 gauge (FreeStyle #100 ea 05/17/21 Lancets) metformin 1,000 mg tablet 1,000 mg PO BID #30 tabs 05/17/21 Allergies Allergy/AdvReac Type Severity Reaction Status Date / Time risperidone [Risperdal] Allergy Unknown hives/rash Verified 05/18/21 05:53 lisinopril Allergy Unknown Verified 05/18/21 05:53 nitroglycerin [NITROGLYCERIN] AdvReac Unknown SEVERE Verified 05/18/21 05:53 HYPOTENSION Review of Systems Constitutional: Constitutional: Reports no additional constitutional complaints, Denies chills, Denies fever(s) and Denies night sweats Eyes: Eyes: Reports no additional eye complaints, Denies blurry vision, Denies change in vision, Denies diplopia, Denies eye discharge, Denies loss of vision and Denies eye pain ENT: Denies dizziness Cardiovascular: Cardiovascular: Reports no additional cardiovascular complaints, Denies chest pain, Denies lightheadedness, Denies Loss of Consciousness and Denies dyspnea Respiratory: Respiratory: Reports no additional respiratory complaints and Denies dyspnea Gastrointestinal: Gastrointestinal: Reports no additional gastrointestinal complaints, Denies abdominal pain, Denies melena, Denies hematochezia, Denies change in bowel habits and Denies change in stool character Genitourinary: Genitourinary: Reports no additional male genitourinary complaints, Denies hematuria, Denies oliguria, Denies difficulty urinating, Denies dysuria, Denies urinary frequency, Denies urinary hesitancy, Denies urinary incontinence and Denies urinary urgency Musculoskeletal: Musculoskeletal: Reports no additional musculoskeletal complaints, Denies numbness and Denies tingling Comments: right shoulder pain, left knee pain Neurologic: Denies dizziness, Denies loss of vision, Denies numbness and Denies tingling Psychiatric: Psychiatric: Reports no additional psychiatric complaints Endocrine: Endocrine: Reports no additional endocrine complaints Hematologic/Lymphatic: Hematologic/Lymphatic: Reports no additional hematologic/lymphatic complaints Allergic/Immunologic: Allergic/Immunologic: Reports no additional allergi c/immunologic complaints [facility] Past Medical History Attestation statement: The following information was validated with the patient. Source: old records reviewed Medical History Arthritis Asthma COPD (chronic obstructive pulmonary disease) Diabetes mellitus DVT (deep venous thrombosis) HTN (hypertension) Sleep apnea Surgical History History of bowel resection Social History Social History Alcohol intake: never Patient Tobacco Use Status: Former Tobacco user Substance Use Type: Marijuana Advance Directives: Yes Advance Directives on File: Yes Advance Directives Date on File: 12/18/20 Physical Exam ED Vital Signs: Vital Signs - 24 hr 11/11/21 10:40 Pulse Rate 104 H Respiratory Rate 22 H Blood Pressure 133/92 H Pulse Oximetry 97 Oxygen Delivery Method Room Air BMI result Body Mass Index 57.1 Const General: cooperative, no acute distress, alert and awake Nutritional Appearance: well nourished and obese Orientation/consciousness: patient oriented x3 Limitations: no limitations HENMT Head: Yes normal to inspection and Yes atraumatic Ears: hearing grossly normal bilaterally and external ears normal General nose exam: Normal external nose present, no nasal discharge noted and no epistaxis Face and sinus: Yes normal facial exam, No abrasion and No laceration Mouth: Normal oral and palatal mucosa present, no drooling and no muffled voice Eyes General: appearance normal, both eyes and all related structures Periorbital: periorbital findings normal Eyelids: Yes eyelids normal Conjunctivae: conjunctivae normal Pupils: Equal, round and reactive pupils present EOM: EOMs intact bilaterally Neck Neck: Yes normal visual inspection, Yes full ROM and Yes no lymphadenopathy Chest Chest palpation & inspection: normal inspection of the chest Resp Effort & Inspection: normal respiratory effort and able to speak in complete sentences Auscultation: clear to auscultation bilaterally Cardio Rate: regular rate Rhythm: regular rhythm GI Inspection: Yes normal to inspection Neuro General: patient oriented x3 and moves all extremities Cranial nerves: Yes Equal, round and reactive pupils present Cognition (Neuro): normal cognition Motor exam (neuro): 5/5 motor strength present throughout Sensory Exam: Normal double simultaneous stimulation for sensation Coordination: [id number] test normal Extrem General: Yes normal to inspection, Yes full ROM and Yes capillary refill normal Psych Appearance: grossly normal Mental Status: mental status grossly normal Affect: normal affect Attitude: cooperative Thought process: Normal thought process present Thought content: Normal thought content present Insight: Good insight present (Psych) Medical Decision Making MDM Narrative Medical decision making narrative: Patient is a 51 year old male presenting to the emergency department today with left knee and right shoulder pain after a fall. Patient's physical exam was unremarkable. Patient's left knee and right shoulder x-rays showed no acute process. I explained my physical exam findings as well as all test results to the patient. I answered all questions asked by the patient. Patient received PO Ibuprofen which he stated helped his symptoms significantly. I stressed the importance of the patient taking his medication as prescribed. I stressed the importance of the patient following up with his primary care provider and an orthopedic provider. I stressed the importance of the patient returning to the emergency department immediately if his symptoms were to worsen or if he were to develop any dizziness, shortness of breath, difficulty breathing, chest pain, blurry vision, loss of vision, nausea, vomiting, abdominal pain, fever, chills, back pain, or any other complaints. Patient verbalized agreement and understanding with this treatment plan and discharge. Differential Diagnosis Differential Diagnosis: fall, right shoulder pain, left knee pain Medical Records Medical records reviewed: Yes I reviewed the patient's medical records. Imaging Data Right shoulder x-ray: Attestation: I personally reviewed and interpreted this imaging study as follows: My impression: No acute fracture. Radiologist's impression: EXAMINATION: XR SHOULDER, RIGHT CLINICAL INFORMATION: Fall, pain.? COMPARISON: Radiograph of the right shoulder 09/04/2021 and 08/12/2021.? TECHNIQUE: Three views of the right shoulder. FINDINGS: No acute fracture or malalignment. Chronic Hill-Sachs deformity of the superolateral humerus. Moderate degenerative osteoarthritis of the right acromioclavicular joint. No abnormal soft tissue calcifications. The included portions of the right-sided ribs and right lung are within normal limits.? XR/XR shoulder RT min 2V IMPRESSION: No acute fracture or malalignment. ? Moderate osteoarthrosis of the AC joint. ? Chronic Hill-Sachs deformity. Dictated By: Carmela Mulligan Signed By: Electronically signed by Carmela?Isaak 11/11/21 1152 Left knee x-ray: Attestation: I personally reviewed and interpreted this imaging study as follows: My impression: No acute fractures. Radiologist's impression: EXAMINATION: XR KNEE, LEFT CLINICAL INFORMATION: Fall, pain.? COMPARISON: Radiograph of the left knee dated from 09/06/2021.? TECHNIQUE: Two views of the left knee. FINDINGS: No acute fracture or malalignment. Again noted severe tricompartmental degenerative changes with joint space narrowing, subchondral sclerosis and osteophytes. Small joint effusion and diffuse soft tissue swelling, stable.? XR/XR knee LT 2V IMPRESSION: No acute fracture or malalignment. Severe tricompartmental degenerative osteoarthritis. Dictated By: Carmela Mulligan Signed By: Electronically signed by Carmela?Isaak 11/11/21 1846 Discharge Plan Discharge Clinical Impression: Fall Patient Disposition: Home, Self-Care Instructions: Fall Prevention (ED) Additional Instructions: Follow up with your primary care provider and your orthopedic provider. Return to the emergency department immediately if your symptoms worsen or if you develop any dizziness, shortness of breath, difficulty breathing, chest pain, blurry vision, loss of vision, nausea, vomiting, abdominal pain, fever, chills, back pain, or any other complaints. Prescriptions: No Action albuterol sulfate 90 mcg/actuation HFA aerosol inhaler 2 puff inhalation Q4-6H PRN (Reason: shortness of breath or wheezing) Qty: 8.5 0RF montelukast 10 mg Tablet 10 mg PO DAILY oxycodone 5 mg Tablet 10 mg PO Q8H PRN (Reason: Pain) (DME) blood-glucose meter [FreeStyle Lite Meter] Kit See Rx Instructions .Route Qty: 1 0RF Rx Instructions: As directed (DME) FreeStyle Lite Strips Strip See Rx Instructions .Route Qty: 100 0RF Rx Instructions: As directed (DME) lancets [FreeStyle Lancets] 28 gauge misc See Rx Instructions .Route Qty: 100 0RF Rx Instructions: As directed metformin 1,000 mg tablet 1,000 mg PO BID Qty: 30 0RF atorvastatin 20 mg tablet 1 tab PO DAILY glipizide 5 mg Tablet 2.5 mg PO BID Referrals: [facility] [Provider Group] (Call to establish and follow up with a primary care provider. If you already have a primary care provider, please follow up with them. ) [facility] [Provider Group] (Call to establish and follow up with a primary care provider. If you already have a primary care provider, please follow up with them. ) [facility] [Provider Group] (Call to establish and follow up with a primary care provider. If you already have a primary care provider, please follow up with them. ) Interventions: ED Discharge Assessment Last Done: 11/11/21 12:33 Discharge Date/Time: 11/11/21 12:40 Print Language: Iranian
[2021-11-11 10:40] VITALS: BP 133/92; BP 156/90; PULSE 104; PULSE 115; RESP 22; O2SAT 97; O2SAT 99; BMI 57.1
[2021-11-11] MEDS: Ibuprofen 400 MG TABLET PO (11:13)
== END 2021-11-11 12:40 | disposition home or self-care (01) ==
PROVIDERS: Emergency Provider Emergency Medicine
DX: Z04.3 Encounter for examination and observation following other accident (principal); M25.562 Pain in left knee; M25.511 Pain in right shoulder; E11.9 Type 2 diabetes mellitus without complications; I10 Essential (primary) hypertension
CPT/HCPCS: 73030; 73560; 99283

== ENCOUNTER 2021-12-24 21:53 | Emergency (ER) | payer OTHER, SELFPAY ==
--- NOTE | ~2021-12-24 | XR_ITS ---
EXAMINATION: XR CHEST CLINICAL INFORMATION: Fall medical clearance COMPARISON: 05/18/2021 TECHNIQUE: Frontal view of the chest was obtained. FINDINGS: The lungs are clear with no focal consolidation. No evidence of pneumothorax, pulmonary edema, or pleural effusions. The cardiomediastinal silhouette is unremarkable. No acute osseous findings. Degenerative changes are noted in the spine. XR/XR chest 1V IMPRESSION: No acute cardiopulmonary findings.
--- NOTE | ~2021-12-24 | XR_ITS ---
EXAMINATION: CR X-RAY KNEES BILATERAL CLINICAL INFORMATION: Knee pain status post fall. COMPARISON: Left knee radiographs dated 11/11/2021 and bilateral knee radiographs dated 09/06/2021. TECHNIQUE: 4 views each of the bilateral knees were obtained. FINDINGS: Moderate to severe tricompartmental degenerative joint changes are seen bilaterally, most pronounced in the medial femoral-tibial compartments bilaterally. There is no acute fracture or dislocation. No significant joint effusion. The soft tissues are unremarkable XR/XR knee RT 4V IMPRESSION: Moderate to severe tricompartmental degenerative joint changes bilaterally most consistent with osteoarthritis without definitive acute abnormality.
--- NOTE | ~2021-12-24 | XR_ITS ---
EXAMINATION: CR X-RAY KNEES BILATERAL CLINICAL INFORMATION: Knee pain status post fall. COMPARISON: Left knee radiographs dated 11/11/2021 and bilateral knee radiographs dated 09/06/2021. TECHNIQUE: 4 views each of the bilateral knees were obtained. FINDINGS: Moderate to severe tricompartmental degenerative joint changes are seen bilaterally, most pronounced in the medial femoral-tibial compartments bilaterally. There is no acute fracture or dislocation. No significant joint effusion. The soft tissues are unremarkable XR/XR knee LT 4V IMPRESSION: Moderate to severe tricompartmental degenerative joint changes bilaterally most consistent with osteoarthritis without definitive acute abnormality.
[2021-12-24 22:02] VITALS: BP 147/68; BP 151/79; PULSE 103; PULSE 98; RESP 16; TEMP 36.7; O2SAT 94; BMI 56.9
--- NOTE | 2021-12-24 22:08 | ECG_ITS ---
Test Reason : FALL Blood Pressure : / mmHG Vent. Rate : 095 BPM Atrial Rate : 095 BPM P-R Int : 156 ms QRS Dur : 062 ms QT Int : 340 ms P-R-T Axes : 065 046 060 degrees QTc Int : 427 ms Normal sinus rhythm Low voltage QRS Septal infarct (cited on or before 18-MAY-2021) Abnormal ECG When compared with ECG of 07-JUL-2021 21:40, No significant change was found Referred By: Mikhail Spencer Electronically Signed By:MILLY WINTER MD
--- NOTE | 2021-12-24 22:16 | PC.NURSE ---
Pt aox4. Breaths are even and unlabored. Requesting liquids. Assistance provided with removing shoes and socks. Red socks in place. Will continue to monitor. Pt at x-ray.
--- OUTSIDE RECORDS SUMMARY | 2021-12-24 22:24 | XMS_ITS ---
:1970 Author Care Team Providers Name Role Phone [facility] OTHER [phone] Allergies Code Code System Name Reaction Severity Status Onset 80577 RxNorm Lisinopril ? ? Active ? 4917 RxNorm Nitroglycerin Decreased Blood ? Active ? Pressure 589731 RxNorm Risperdal Hives ? Active ? 681517 RxNorm Squash ? ? Active ? Medications No Medications Reported Notes: meds reviewed; see MAR for deta ils Problems Name Status Onset Date Source ? Dyslipidemia Active 03/27/2021 ? Morbid Obesity Active 03/27/2021 ? Moderate Persistent Asthma Active 03/27/2021 ? Chronic Constipation Active 03/27/2021 ? Osteoarthritis of Knee Active 03/27/2021 ? Recurrent Falls Active 03/27/2021 ? Stasis Dermatitis Active 04/08/2021 ? Incisional Hernia Active 04/08/2021 ? History of Opioid Abuse Active 04/08/2021 ? Procedures None recorded. Results Lab Results None recorded. Past Encounters 05/07/2021 Pain of Left Knee Joint Katelin Figueroa PA-C: [address] [place] [phone], Ph. 04/30/2021 Type II Diabetes Mellitus Uncontrolled Katelin Figueroa PA-C: [address] [place] [phone], Ph. 04/26/2021 Candidiasis of Skin WILLIAN Ng: [address] [place] [phone], Ph. 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 04/24/2021 Osteoarthritis of Knee WILLIAN Ng: [address] [place] [phone], Ph. 04/19/2021 Chest Pain; Covid-19; Recurrent Falls; O steoarthritis of Knee; Moderate Persistent Asthma; Dyslipidemia; Obstructive Sleep Apnea Syndrome; Anemia Gisell Martinezreginald DAIRY CONSULTANT: [address] [place] [phone], Ph. 04/17/2021 Chest Pain Gisell Ansarizhang DAIRY CONSULTANT: [address] [place] [address], [place] [phone], Ph. 04/09/2021 Covid-19 [facility]: [address] [place] [phone], Ph. 04/08/2021 Incisional Hernia; Stasis Dermatitis; Hi story of Opioid Abuse Maria M Crespo MD: [address] [place] [phone], Ph. 04/05/2021 Pain in Left Lower Limb; Anemia; Exposur e to SARS-CoV-2 [facility]: [address] [place] [phone], Ph. 04/04/2021 Osteoarthritis of Knee Gisell Ansarizhang [facility]: [address] [place] [phone], Ph. 04/03/2021 Allergic Rhinitis; Osteoarthritis of Kne e Giesll Torresaneta Jesus [facility]: [address] [place] [address], [place] [phone], Ph. 04/01/2021 Recurrent Falls; Osteoarthritis of Knee; Moderate Persistent Asthma; Dyslipidemia; Obstructive Sleep Apnea Syndrome Gisell Ansarizhang [facility]: [address] [place] [phone], Ph. 03/29/2021 Recurrent Falls; Osteoarthritis of Knee; Moderate Persistent Asthma; Dyslipidemia; Obstructive Sleep Apnea Syndrome Chikis Ramirez MD: [address] [place] [phone], Ph. 03/28/2021 Chronic Pain Syndrome; Type 2 Diabetes M ellitus with Peripheral Angiopathy Katelin Figueroa PA-C: [address] [place] [address], [place] [phone], Ph. 03/26/2021 Recurrent Falls; Osteoarthritis of Knee; Morbid Obesity; Moderate Persistent Asthma; Dyslipidemia; Chronic Constipation Katelin Figueroa PA-C: [address], [place] [phone], Ph. Social History Tobacco Smoking Status Former Smoker Vaccine List Notes: reported to have had COVID Pfiz er 01/2021 and 02/2021 but this needs verification Plan of Care Reminders Provider Appointments None recorded. ? ? Lab None recorded. ? ? Referral None recorded. ? ? Procedures None recorded. ? ? Surgeries None recorded. ? ? Imaging None recorded. ? ? Vitals 05/07/2021 09:34PM Acute Rounding Visit Height Blood Pressure 5 ft 10 in 04/30/2021 02:20PM Acute Rounding Visit Height Blood Pressure 5 ft 10 in 161/88 mm[Hg] 04/26/2021 11:08AM Acute Rounding Visit Height Blood Pressure 5 ft 10 in 161/88 mm[Hg] 04/25/2021 03:08PM Acute Rounding Visit Height Blood Pressure 5 ft 10 in 161/88 mm[Hg] 04/24/2021 10:24AM Acute Rounding Visit Height Blood Pressure 5 ft 10 in 161/88 mm[Hg] 04/19/2021 12:45PM Routine Rounding Visit Height Blood Pressure 5 ft 10 in 161/88 mm[Hg] 04/17/2021 09:10AM Acute Rounding Visit Height Blood Pressure 5 ft 10 in 156/97 mm[Hg] 04/09/2021 02:18PM Acute Rounding Visit Height Blood Pressure 5 ft 10 in 143/97 mm[Hg] 04/08/2021 05:07PM Acute Rounding Visit Height Blood Pressure 5 ft 10 in 140/74 mm[Hg] 04/05/2021 05:47PM Acute Rounding Visit Height Blood Pressure 5 ft 10 in 126/85 mm[Hg] 04/04/2021 03:56PM Acute Rounding Visit Height Blood Pressure 5 ft 10 in 126/85 mm[Hg] 04/03/2021 11:58AM Acute Rounding Visit Height Blood Pressure 5 ft 10 in 126/85 mm[Hg] 04/01/2021 09:44AM Acute Rounding Visit Height Blood Pressure 5 ft 10 in 126/85 mm[Hg] 03/29/2021 06:13AM Admitting H&P Height Blood Pressure 5 ft 10 in 126/85 mm[Hg] 03/28/2021 05:39PM Acute Rounding Visit Height Blood Pressure 5 ft 10 in 126/85 mm[Hg] 03/26/2021 10:11AM Initial Intake Note Height Weight BMI Blood Pressure 5 ft 10 in 410 lbs 58.8 kg/m2 143/82 mm[Hg]
--- NOTE | 2021-12-24 22:44 | ED_ITS ---
HPI - Fall General Chief Complaint: Fall Stated Complaint: L knee pain multiple falls today Time Seen by Provider: 12/24/21 22:06 Source: patient Mode of arrival: ambulatory Limitations: no limitations History of Present Illness HPI Narrative: This is a 51-year-old male history of type 2 diabetes, obesity presenting to the emergency department requesting to be placed in rehab. Patient requesting physical therapy and case management evaluation. Patient tells me has been feeling weak and he has been having multiple falls throughout the week, he tells me today he fell 3 times on to his knees, he tells me he is falling because he feels like his knees her and they give out on him. He denies lower extremity we akness but he states that he has knee pain. Knee pain is worse with movement better at rest. Patient reports that his living environment is not ideal for him. Patient denies preceding symptoms such as chest pain, shortness of breath, dizziness, headache, vision changes, palpitations prior to fall, he tells me he just feels like his knees give out constantly. He denies chest pain, shortness of breath, headache, dizziness, vision changes, nausea, vomiting, abdominal pain. Patient did not hit his head or lose consciousness. Patient not on blood thinners. Related Data Home Medications Medication Instructions Recorded Confirmed montelukast 10 mg tablet 10 mg PO DAILY 12/17/20 09/05/21 atorvastatin 20 mg tablet 1 tab PO DAILY 03/20/21 09/05/21 oxycodone 5 mg tablet 10 mg PO Q8H PRN Pain 05/07/21 09/05/21 glipizide 5 mg tablet 2.5 mg PO BID 09/05/21 09/05/21 Previous Rx's Medication Instructions Recorded albuterol sulfate 90 mcg/actuation 2 puff inhalation Q4-6H PRN 11/01/20 aerosol inhaler shortness of breath or wheezing #8.5 grams blood sugar diagnostic (FreeStyle #100 ea 05/17/21 Lite Strips) blood-glucose meter (FreeStyle #1 ea 05/17/21 Lite Meter kit) lancets 28 gauge (FreeStyle #100 ea 05/17/21 Lancets) metformin 1,000 mg tablet 1,000 mg PO BID #30 tabs 05/17/21 Allergies Allergy/AdvReac Type Severity Reaction Status Date / Time risperidone [Risperdal] Allergy Unknown hives/rash Verified 05/18/21 05:53 lisinopril Allergy Unknown Verified 05/18/21 05:53 nitroglycerin [NITROGLYCERIN] AdvReac Unknown SEVERE Verified 05/18/21 05:53 HYPOTENSION Review of Systems Review of Systems: Constitutional : No Weight loss, No Fever, No Chills, No Fatigue, No Malaise ENT/Mouth : No sore throat, No Rhinorrhea Eyes: No Eye Pain, No Swelling, No Redness Cardiovascular : No Chest Pain, No SOB, No Dyspnea on Exertion, No Orthopnea, No Edema, No Palpitations Respiratory : No Cough, No Sputum, No Wheezing Gastrointestinal : No Nausea, No Vomiting, No Diarrhea, No Constipation, No abdominal Pain, No Hematochezia, No Melena Genitourinary : No Dysuria, No Urinary Frequency, No Hematuria, Musculoskeletal : + joint pain, No Myalgias, No Joint Swelling Skin : No Skin Lesions, No rash Neuro : + Weakness, No Numbness, No Dizziness, No Headache Psych : No Anxiety/Panic, No Depression All other systems reviewed and are negative Yes all other systems are reviewed and are negative [facility] Past Medical History Attestation statement: The following information was validated with the patient. Source: old records reviewed and nursing notes reviewed Medical History Arthritis Asthma COPD (chronic obstructive pulmonary disease) Diabetes mellitus DVT (deep venous thrombosis) HTN (hypertension) Sleep apnea Surgical History History of bowel resection Social History Social History Alcohol intake: never Patient Tobacco Use Status: Former Tobacco user Substance Use Type: Marijuana Advance Directives: Yes Advance Directives on File: Yes Advance Directives Date on File: 12/18/20 Physical Exam Vital Signs: Vital Signs: Last Vital Signs Temp 98.1 F 12/24/21 22:02 Pulse 71 12/25/21 00:21 Resp 16 12/25/21 00:21 BP 139/72 12/25/21 00:21 Pulse Ox 96 12/25/21 00:21 O2 Del Method 12/25/21 00:21 BMI result Body Mass Index 56.9 vss Appearance: Alert.? Oriented X3.? No acute distress.? Head: Normocephalic, atraumatic, no step-offs or deformities Eyes: Pupils equal, round and reactive to light.? ENT: Pharynx normal.? Neck: Normal inspection.? Neck supple.? CVS: Normal heart rate and rhythm.? Pulses normal.? Respiratory: No respiratory distress.? Breath sounds normal.? Abdomen: Soft and nontender.? Skin: Skin warm and dry.? Normal skin color.? Normal skin turgor.? Extremities: No lower extremity edema.? No calf ttp. 5/5 strength to bilateral upper and lower extremitie Back: No midline tenderness, no C-spine tenderness, full range of motion, no CVA tenderness bilaterally Neuro: Oriented X 3.? No motor deficit.? No sensory deficit. CN 2-12 intact . No saddle paresthesias. Normal rapid alternating movements. Course Reevaluation(s) Reevaluation #1: CBC appears within normal limits. Chemistry significant for a low magnesium, IV Mag will be given at this time. Glucose slightly elevated however patient receiving IV hydration will recheck at a later time. COVID negative. Bilateral knee pain with moderate to severe tricompartmental degenerative joint changes bilaterally consistent with osteoarthritis. Patient ambulating around the department with a walker without difficulty. At this time patient will be placed in physician observation to allow more time to be evaluated by physical therapy and case management. At time observation was started patient common cooperative no acute distress, no longer complaining of pain. Urine pending. Time: 00:32 MDM - Fall [facility] Narrative Medical decision making narrative: [id number] 51-year-old male presents to the emergency department requesting physical therapy, case management evaluation for placement, patient reports frequent falls at home complaining of bilateral knee pain, weakness, and chronic lower back pain. All of these make it difficult for him to complete his activities of daily living. Physical examination obese male, full range of motion to bilateral knees bilateral shoulders, hips. Patient able to ambulate with walker. No focal neuro deficits. No midline tenderness to back. No saddle paresthesias. History and physical examination concerning for physical deconditioning, likely osteoarthritis of the knees. Unlikely fracture dislocation of knees. History a nd physical not consistent with cauda equina, gullian barre or epidural abscess. No signs of evident trauma on exam, no signs of flail chest, lungs clear, unlikely pneumothorax. Plan at this time is medical clearance and evaluation by physical therapy in case management. Medical Records Attestation: I reviewed the patient's medical records. Lab Data Attestation: I reviewed the patient's lab results. Result diagrams: 12/24/21 22:46 12/24/21 22:46 Labs: Lab Results 12/24/21 12/24/21 12/24/21 Range/Units 22:39 22:46 22:46 WBC 9.1 (4.8-10.8) X10*3/uL RBC 5.13 (4.60-5.80) X10*6/uL Hgb 14.4 (14.0-18.0) g/dl Hct 44.8 (42.0-52.0) % MCV 87.3 (80.0-98.0) fL MCH 28.1 (27.0-33.0) pg MCHC 32.1 (31.0-36.0) g/dl RDW 12.9 (11.0-16.0) % Plt Count 300 (160-400) X10*3/uL MPV 9.3 L (9.4-12.4) fL Immature Gran % (Auto) 0.3 (0.0-0.4) % Neut % (Auto) 70.7 (45-73) % Lymph % (Auto) 21.2 (20-40) % Caroline % (Auto) 5.3 (2-11) % Eos % (Auto) 2.1 (0-4) % Baso % (Auto) 0.4 (0-2) % Lymph # (Auto) 1.9 (1.2-4.9) X10*3/uL Caroline # (Auto) 0.5 (0.1-1.2) X10*3/uL Eos # (Auto) 0.2 (0.0-0.4) X10*3/uL Baso # (Auto) 0.0 (0.0-0.2) X10*3/uL Abs Immat Gran (auto) 0.03 (0.00-0.03) X10*3/uL Absolute Neuts (auto) 6.5 (2.0-8.3) x10*3/uL Absolute Nucleated RBC 0.000 (0.0-0.012) X10*3/uL Nucleated RBC % (auto) 0.0 (0.0-0.2) /100WBC Sodium 139 (135-145) mmol/L Potassium 4.0 (3.3-5.1) mmol/L Chloride 100 (96-108) mmol/L Carbon Dioxide 27 (22-29) mmol/L Anion Gap 16 (12-20) BUN 16 (9-16) mg/dL Creatinine 0.83 (0.5-1.4) mg/dL Estim Creat Clear Calc 170.5 Estimated GFR > 60 Random Glucose 208 H (60-115) mg/dL Calcium 9.1 D (8.4-10.2) mg/dL Magnesium 1.4 L* (1.6-2.6) mg/dL Total Bilirubin 0.2 (0.0-1.0) mg/dL AST 15 D (5-37) U/L ALT 15 (0-40) U/L Alkaline Phosphatase 90 (39-117) U/L Total Protein 7.1 (6.5-8.0) g/dL Albumin 3.7 (3.5-5.0) g/dL COVID-19 (LEELEE) Negative (Negative) COVID-19 Clin Com See Note ECG Data Attestation: I personally reviewed and interpreted this ECG as follows: ECG interpretation date: 12/24/21 ECG interpretation time: 23:20 Prior ECG tracings: available for review Interpretation: Ventricular rate of 95, VA normal, QRS normal, QT/QTC normal. EKG with normal sinus rhythm, low-voltage QRS, no ST elevations or inversions concerning for ischemia. No significant changes when compared to previous. Critical Care Time Critical Care Time Critical Care Time: No Discharge Plan Discharge Clinical Impression: Bilateral knee pain, Osteoarthritis, Physical deconditioning, Fall Patient Disposition: Still a Patient Prescriptions: No Action albuterol sulfate 90 mcg/actuation HFA aerosol inhaler 2 puff inhalation Q4-6H PRN (Reason: shortness of breath or wheezing) Qty: 8. 5 0RF montelukast 10 mg Tablet 10 mg PO DAILY oxycodone 5 mg Tablet 10 mg PO Q8H PRN (Reason: Pain) (DME) blood-glucose meter [FreeStyle Lite Meter] Kit See Rx Instructions .Route Qty: 1 0RF Rx Instructions: As directed (DME) FreeStyle Lite Strips Strip See Rx Instructions .Route Qty: 100 0RF Rx Instructions: As directed (DME) lancets [FreeStyle Lancets] 28 gauge misc See Rx Instructions .Route Qty: 100 0RF Rx Instructions: As directed metformin 1,000 mg tablet 1,000 mg PO BID Qty: 30 0RF atorvastatin 20 mg tablet 1 tab PO DAILY glipizide 5 mg Tablet 2.5 mg PO BID
[2021-12-24 22:49] LABS: MANUAL DIFF FLAG NO
[2021-12-24 22:54] LABS: Basophils Percent Auto 0.4 % (0-2); Eosinophils Absolute Auto 0.2 X10*3/uL (0.0-0.4); Eosinophils Percent Auto 2.1 % (0-4); Hematocrit 44.8 % (42.0-52.0); Hemoglobin 14.4 g/dl (14.0-18.0); Imm Gran Abs Auto 0.03 X10*3/uL (0.00-0.03); Imm Gran Pct Auto 0.3 % (0.0-0.4); Lymphocytes Absolute Auto 1.9 X10*3/uL (1.2-4.9); Lymphocytes Percent Auto 21.2 % (20-40); Mean Corpuscular HGB Conc 32.1 g/dl (31.0-36.0); Mean Corpuscular Hemoglobin 28.1 pg (27.0-33.0); Mean Corpuscular Volume 87.3 fL (80.0-98.0); Mean Platelet Volume 9.3 fL (9.4-12.4); Monocytes Absolute Auto 0.5 X10*3/uL (0.1-1.2); Monocytes Percent Auto 5.3 % (2-11); Neutrophils Absolute Auto 6.5 x10*3/uL (2.0-8.3); Neutrophils Percent Auto 70.7 % (45-73); Platelet Count 300 X10*3/uL (160-400); Red Blood Count 5.13 X10*6/uL (4.60-5.80); Red Cell Distribution Width 12.9 % (11.0-16.0); White Blood Count 9.1 X10*3/uL (4.8-10.8)
[2021-12-24 23:20] LABS: Alanine Aminotransferase 15 U/L (0-40); Albumin Level 3.7 g/dL (3.5-5.0); Alkaline Phosphatase 90 U/L (39-117); Anion Gap 16 (12-20); Aspartate Amino Transferase 15 U/L (5-37); Bilirubin Total 0.2 mg/dL (0.0-1.0); Blood Urea Nitrogen 16 mg/dL (9-16); Calcium 9.1 mg/dL (8.4-10.2); Carbon Dioxide 27 mmol/L (22-29); Chloride 100 mmol/L (96-108); Creatinine Clr Calc Pharmacy 170.5; Estimated Glomerular Filt Rate > 60; Glucose Random 208 mg/dL (60-115); Magnesium 1.4 mg/dL (1.6-2.6); Sodium 139 mmol/L (135-145); Total Protein 7.1 g/dL (6.5-8.0)
[2021-12-24 23:21] LABS: COVID-19 Test Negative (Negative)
[2021-12-24] MEDS: Morphine Sulfate 4 MG/ML CARTRIDGE IVPUSH (23:36)
[2021-12-24] MEDS: Magnesium Sulfate/D5W 1 GM/100 ML PIGGYBACK IV (23:36)
[2021-12-25] VITALS (10 sets, daily range): BP systolic 129–191; BP diastolic 69–91; PULSE 71–91; RESP 13–18; TEMP 36.3–37.5; O2SAT 93–98
[2021-12-25 01:53] LABS: Alanine Aminotransferase 13 U/L (0-40); Albumin Level 3.6 g/dL (3.5-5.0); Alkaline Phosphatase 82 U/L (39-117); Anion Gap 16 (12-20); Aspartate Amino Transferase 12 U/L (5-37); Bilirubin Total 0.2 mg/dL (0.0-1.0); Blood Urea Nitrogen 15 mg/dL (9-16); Calcium 8.9 mg/dL (8.4-10.2); Carbon Dioxide 28 mmol/L (22-29); Chloride 99 mmol/L (96-108); Creatinine Clr Calc Pharmacy 179.2; Estimated Glomerular Filt Rate > 60; Glucose Random 185 mg/dL (60-115); Potassium 3.8 mmol/L (3.3-5.1); Sodium 139 mmol/L (135-145); Total Protein 6.8 g/dL (6.5-8.0)
--- NOTE | 2021-12-25 03:49 | PC.NURSE ---
Pt sleeping. Breaths are even and unlabored with equal chest rises. Will continue to monitor.
--- NOTE | 2021-12-25 05:45 | PC.NURSE ---
Pt sleeping at the bedside. Breaths are even and unlabored with equal chest rises. No apparent distress noted. Will continue to monitor pt.
--- NOTE | 2021-12-25 08:31 | PHA.MEDREC ---
Pharmacy Consult ? Medication Reconciliation Pharmacy has completed the medication reconciliation.
[2021-12-25 08:57] LABS: Appearance Urine Clear; Color Urine Yellow; Glucose Urine UA Negative (Negative); Leukocyte Esterase Urine Negative (Negative); Nitrite Urine Negative (Negative); PH 5.5 (5.0-9.0); Specific Gravity - Urine 1.025 (1.005-1.025); Urine Blood Negative (Negative); Urine Ketones Negative (Negative); Urine Protein Negative (Neg-Trace)
--- NOTE | 2021-12-25 09:53 | MHC.CM.ED ---
Received case management consult overnight. Patient came to ER due to multiple falls. Work up essentially negative. Physical therapy eval completed. Short term rehab is being recommended. Patient is well known to case management. He has been difficult to place in the past due to his weight. His current weight is 396lbs. Patient is vaccinated and boosted X1 against Covid. Referral broadcasted in [facility] to all facilities within 50 miles that patient are contracted with patient's insurance. Continue to monitor for d/c needs.
[2021-12-25 13:19] LABS: Glucose, Whole Blood 177 mg/dL (60-115)
--- NOTE | 2021-12-25 16:07 | PC.NURSE ---
Addendum entered by Kateryna Matson 12/25/21 16:11: Pt meds were administer as order. Original Note: Pt V/S are stable, pt is a/o x 4 and + skin turgor. will continue to monitor.
[2021-12-25] MEDS: Montelukast Sodium 10 MG TABLET PO (16:10)
[2021-12-25] MEDS: Aspirin Enteric Coated 81 MG TABLET.DR PO (16:10)
--- NOTE | 2021-12-25 16:18 | MHC.CM.ED ---
[facility] is able to offer a bed and is in the process of obtaining insurance auth. Patient aware and agreeable. Continue to monitor for d/c needs.
--- NOTE | 2021-12-25 18:00 | PC.NURSE ---
Pt is a/o x4, Pt meds were administered as order. will continue to monitor.
--- NOTE | 2021-12-25 20:00 | PC.NURSE ---
Pt V/S are stable, pt is sleeping, and meds were administered as order. will continue to monitor.
[2021-12-25 22:07] LABS: Glucose, Whole Blood 159 mg/dL (60-115)
[2021-12-25] MEDS: Atorvastatin Calcium 20 MG TABLET PO (22:12)
[2021-12-25] MEDS: metFORMIN HCl 1,000 MG TABLET 1000 MG PO (22:12)
--- NOTE | 2021-12-25 22:14 | PC.NURSE ---
Pt v/s are stable, pt POC 159, pt meds were administered as ordered. Pt is in pain 09/22. will continue to monitor.
[2021-12-26 04:06] VITALS: BP 146/82; PULSE 72; RESP 18; TEMP 36.7; O2SAT 94
--- NOTE | 2021-12-26 07:14 | PC.NURSE ---
assisted to side of bed to use urinal
[2021-12-26 07:18] VITALS: BP 110/75; RESP 16; TEMP 36.4; O2SAT 99
[2021-12-26] MEDS: Aspirin Enteric Coated 81 MG TABLET.DR PO (07:25)
[2021-12-26] MEDS: metFORMIN HCl 1,000 MG TABLET 1000 MG PO (07:25)
[2021-12-26] MEDS: Montelukast Sodium 10 MG TABLET PO (07:25)
--- NOTE | 2021-12-26 08:38 | MHC.CM.ED ---
Addendum entered by Christina Motta 12/26/21 10:28: Insurance auth obtained. Patient can leave at 2pm. [facility] booked. Med [facility] with chart. Patient, Talia METZGER and Nancy HSU aware. Original Note: Patient remains in ER. [facility] is in the process of obtaining insurance auth. Patient aware and agreeable. Continue to monitor for d/c needs.
[2021-12-26 11:29] LABS: Glucose, Whole Blood 190 mg/dL (60-115)
== END 2021-12-26 15:45 | disposition skilled nursing facility (03) ==
PROVIDERS: Physician Assistant; Emergency Provider Internal Medicine; PCP Internal Medicine
DX: M17.0 Bilateral primary osteoarthritis of knee (principal); R26.2 Difficulty in walking, not elsewhere classified; Z20.822 Contact with and (suspected) exposure to COVID-19; Z79.899 Other long term (current) drug therapy; Z91.81 History of falling; Z87.891 Personal history of nicotine dependence
CPT/HCPCS: 36415; 71045; 73564; 80053; 81003; 82947; 83735; 85025; 87635; 93005; 96365; 96375; 97162; 99285; J2270; J3475

== ENCOUNTER 2022-01-06 | Outpatient (REF) | payer OTHER, SELFPAY | END 2022-01-06 00:01 | disposition home or self-care (01) | LOC: HO.HOSX | PROVIDERS: Visit Provider Physician Assistant | DX: M17.0 Bilateral primary osteoarthritis of knee (principal) | CPT/HCPCS: 20610; 99202; J1020 ==

== ENCOUNTER → 2022-03-05 08:54 | Outpatient (BNVA) | payer OTHER, MEDICAID, SELFPAY | PROVIDERS: PCP Internal Medicine; Visit Provider Anesthesiology | DX: M17.0 Bilateral primary osteoarthritis of knee (principal); G89.4 Chronic pain syndrome; E11.9 Type 2 diabetes mellitus without complications; E66.01 Morbid (severe) obesity due to excess calories | CPT/HCPCS: 99202 ==

== ENCOUNTER 2022-04-08 06:16 | Outpatient (REF) | payer OTHER, MEDICAID, SELFPAY | END 2022-04-08 06:17 | disposition home or self-care (01) | LOC: CF 06:16 | PROVIDERS: Visit Provider Anesthesiology | DX: Z13.89 Encounter for screening for other disorder (principal) ==

== ENCOUNTER 2022-04-22 06:07 | Outpatient (REF) | payer OTHER, MEDICAID, SELFPAY ==
--- NOTE | ~2022-04-22 | FL_ITS ---
EXAMINATION: XR FLUOROSCOPY WITH IMAGES CLINICAL INFORMATION: Bilateral primary osteoarthritis of knee. COMPARISON: Left knee 12/24/2021 TECHNIQUE: Fluoroscopy Supervised By: Trudy. Fluoroscopy Time: 0.2 minutes. Cumulative Dose: 17.1 mGy. DAP: 4.55 Gy-cm2. Images: 2. FINDINGS: There are 2 digital images obtained revealing loss of medial and lateral compartment joint space with periarticular spurring. No bony erosive changes. There are no loose bodies. Moderate patellofemoral periarticular spurring is seen. FL/FL guidance in treatment room IMPRESSION: Degenerative arthritic changes in the left knee. No visible acute fracture or dislocation seen.
== END 2022-04-22 06:08 | disposition home or self-care (01) ==
LOC: CF 06:07
PROVIDERS: Visit Provider Anesthesiology
DX: M25.562 Pain in left knee (principal)
CPT/HCPCS: 64454

== ENCOUNTER → 2022-04-28 08:59 | Outpatient (BNVA) | payer OTHER, MEDICAID, SELFPAY | PROVIDERS: Visit Provider Anesthesiology | DX: M17.0 Bilateral primary osteoarthritis of knee (principal); M25.561 Pain in right knee; E11.9 Type 2 diabetes mellitus without complications; E66.01 Morbid (severe) obesity due to excess calories; G89.4 Chronic pain syndrome | CPT/HCPCS: Q3014 ==

== ENCOUNTER 2022-05-06 07:07 | Outpatient (REF) | payer OTHER, SELFPAY ==
--- NOTE | ~2022-05-06 | FL_ITS ---
EXAMINATION: FL FLUOROSCOPY WITH IMAGES CLINICAL INFORMATION: Right knee pain. COMPARISON: None. TECHNIQUE: Fluoroscopy Supervised By: WILLIAN Greenberg. Fluoroscopy Time: 0.2. Cumulative Dose: 6.4 mGy. DAP: 1.8 Gycm2. Images: 2. FINDINGS: 2 views of the right knee demonstrate needle placement for geniculate nerve block. There is arthritis at the knee joint. FL/FL guidance in treatment room IMPRESSION: Fluoroscopy guidance for pain management procedure.
== END 2022-05-06 07:08 | disposition home or self-care (01) ==
LOC: CF 07:07
PROVIDERS: Visit Provider Anesthesiology
DX: M17.0 Bilateral primary osteoarthritis of knee (principal); G89.4 Chronic pain syndrome
CPT/HCPCS: 64454

== ENCOUNTER → 2022-05-08 09:23 | Outpatient (BNVA) | payer OTHER, SELFPAY | PROVIDERS: Visit Provider Anesthesiology | DX: G89.4 Chronic pain syndrome (principal); M17.0 Bilateral primary osteoarthritis of knee; M25.561 Pain in right knee; M25.562 Pain in left knee; E11.9 Type 2 diabetes mellitus without complications; E66.01 Morbid (severe) obesity due to excess calories; Z68.44 Body mass index [BMI] 60.0-69.9, adult | CPT/HCPCS: Q3014 ==

== ENCOUNTER 2022-06-05 09:40 | Day surgery (SDC) | payer OTHER, SELFPAY ==
--- NOTE | ~2022-06-05 | FL_ITS ---
EXAMINATION: XR FLUOROSCOPY WITH IMAGES CLINICAL INFORMATION: Genicular nerve Cool RFA, left. COMPARISON: Radiographs left knee 12/14/2021 TECHNIQUE: Fluoroscopy Supervised By: Dr. Jerson Alvarez. Fluoroscopy Time: 0.6 minutes. Cumulative Dose: 11.4 mGy. DAP: 3.12 Gycm2. Images: 2. FINDINGS: There are spinal needle electrodes adjacent to the distal left femoral shaft, medial and lateral sides, mid depth. There is a spinal needle the electrode electrode adjacent to the left proximal tibia on medial side mid depth. Again, there are prominent osteoarthritic changes, greater on medial side. FL/FL guidance in OR IMPRESSION: Fluoroscopy for pain management procedures.
--- NOTE | 2022-06-05 09:30 | MHC.SHP ---
Pre-Procedural Eval Section A Date of Service: 06/05/22 The patient is an INPATIENT: No Changes since office visit: Yes Patient answered all questions The History & Physical has been completed within 30 days and I have reviewed it.: No Section B Chief Complaint: Bilateral primary osteoarthritis of knee with pain Details of Present Illness: as above Relevant Family History (Specify if Yes): No Relevant Social History: None Present Medications: see Short Stay Collaborative assessment Medical History: No relevant PMH History of Previous Operations: No relevant previous surgery Allergies: Allergies Allergy/AdvReac Type Severity Reaction Status Date / Time risperidone [Risperdal] Allergy Unknown hives/rash Verified 05/08/22 09:25 lisinopril Allergy Unknown Verified 05/08/22 09:25 nitroglycerin [NITROGLYCERIN] AdvReac Unknown SEVERE Verified 05/08/22 09:25 HYPOTENSION Review of Systems Sugical H&P ROS: Negative: Cardiovascular, Respiratory, Neurological, Psychiatric, Hem-Onc, Allergic/Immunologic, Gastrointestinal, Genitourinary, Integumentary, Endocrine and Eyes/Ears/Nose/Throat and Yes, Specify: Constitution (Morbid obesity) and Musculoskeletal (Osteoarthritis) Exam Surgical H&P Exam: Normal: HEENT, Normal: Heart, Normal: Lungs, Normal: Extremities, Normal: Skin and Normal: Neurological and Significant Findings: Abdomen (Enlarged due to i/a & s/q fat) Plan Diagnosis/Plan: Unchanged I have reviewed the history and physical and performed a pertinent physical examination on my patient. No changes have occurred unless specified. Time Spent With Patient Time: Total time managing care of this patient today ____ minutes.
[2022-06-05 10:37] VITALS: BMI 60.2
[2022-06-05 10:51] VITALS: BP 108/48; PULSE 81; RESP 18; TEMP 36.1; O2SAT 96
[2022-06-05 12:30] VITALS: BP 111/53; PULSE 97; RESP 20; TEMP 36.4; O2SAT 97
--- NOTE | 2022-06-05 12:35 | P.BOP_ITS ---
Brief Operative Note Date of Service: 06/05/22 Pre-op diagnosis: left knee pain, left knee osteoarthritis Post-op diagnosis: same Procedure: RFA left genicular nerves Surgeon: Jerson Alvarez MD Anesthesia: local Was an Therapeutic Sales Specialist used for this Procedure?: No Estimated blood loss (mL): 4 Condition: stable Disposition: PACU
--- NOTE | 2022-06-05 12:38 | P.OP_ITS ---
Operative Note Operative Note Date of Service: 06/05/22 Narrative: LEFT KNEE GENICULAR NERVES COOLED RFA. Informed consent was obtained , the patient was brought to the OR and positioned supine on ORT. Time-out was performed delineating correct site, side, the nature of the procedure, patient's allergy, preoperative antibiotic if needed. All operating room staff was participating in OR time-out procedure. C-arm was brought over the operating field and picture of the left knee was de monstrated on the screen. Anterolateral and anteromedial surfaces of the knee were prepped with chloroprep and draped with sterile? utility towels.The point of interest were delineated for: superior lateral genicular nerve as the confluence of the metaphysis of the? femur with corresponding diaphysis on the lateral silhouette of the femur distal bone, For superior medial genicular nerve (suprapatelar saphenous nerve) the point of interest was delineated as the confluence of the silhouette of the metaphysis of the femur with corresponding diaphysis on the medial silhouette on the femoral distal bone. For inferior medial genicular nerve (? Infrapatellar? saphenous nerve) the point of interest was delineated as the confluence of metaphysis of the proximal tibia on the medial side with corresponding diaphysis of the same bone. The projections of the points of interest on anterior surface of the left knee was injected with small amount of mixture of lidocaine 1% and ropivacaine 2% ? 1-to 2 ml. After that 3 cooled radiofrequency canulas 150 mm long were driven to? the point of interest in tunnel vision fashion. When needles gently contacted the bones the position of the C-arm was switched to the lateral view, care was taken to superimpose the the femoral condyles of the knee one over the other. The position of the canulas were adjusted to assure that the tip of the canulas are located at the mid shaft of each of the above described bones. After that small amount of mixture of the same local anesthetic mixture as above? and a trace amount of kenalog was injected into each canula position.? total amount of local anesthetics was 4.5 cc.? The cooled RFA machine was connected to the canulas in usual fashion and energy applied with temperature of the canulas of 60 degrees C, for the 2.5 minutes. When energy application was completed the canulas were removed and sterile dressing was applied. Patient? went to PACU where he? recovered uneventfully.
== END 2022-06-05 12:56 | disposition home or self-care (01) ==
PROVIDERS: Visit Provider Anesthesiology
PROC: (CPT 64624; principal; 2022-06-05 11:30)
DX: M25.562 Pain in left knee (principal); M17.12 Unilateral primary osteoarthritis, left knee; G89.4 Chronic pain syndrome; J44.9 Chronic obstructive pulmonary disease, unspecified; I10 Essential (primary) hypertension; G47.30 Sleep apnea, unspecified; E11.9 Type 2 diabetes mellitus without complications; E66.01 Morbid (severe) obesity due to excess calories; Z68.44 Body mass index [BMI] 60.0-69.9, adult; Z79.82 Long term (current) use of aspirin; Z79.84 Long term (current) use of oral hypoglycemic drugs; Z79.899 Other long term (current) drug therapy; Z88.8 Allergy status to other drugs, medicaments and biological substances; Z86.718 Personal history of other venous thrombosis and embolism; Z87.891 Personal history of nicotine dependence
CPT/HCPCS: 64624; J2795; J3301; Q9967

== ENCOUNTER 2022-07-03 12:22 | Day surgery (SDC) | payer OTHER, SELFPAY ==
--- NOTE | ~2022-07-03 | FL_ITS ---
EXAMINATION: XR FLUOROSCOPY WITH IMAGES CLINICAL INFORMATION: Genicular Nerve cooled RFA COMPARISON: Radiographs right knee 12/24/2021 TECHNIQUE: Fluoroscopy Supervised By: Dr. Jerson Alvarez. Fluoroscopy Time: 0.3 minutes. Cumulative Dose: 19.3 mGy. DAP: 7 Gycm2. Images: 2. FINDINGS: There are catheters overlying the distal femoral shaft, mid depth, presumably medial and lateral sides. There is a catheter overlying the proximal tibia mid depth. There are prominent tricompartment osteoarthritic changes again seen. FL/FL guidance in OR IMPRESSION: Fluoroscopy for pain management procedures.
[2022-07-03 06:54] VITALS: BMI 60.2
[2022-07-03 12:37] VITALS: BP 137/76; PULSE 84; RESP 18; TEMP 36.8; O2SAT 97
--- NOTE | 2022-07-03 12:39 | MHC.SHP ---
Pre-Procedural Eval Section A Date of Service: 07/03/22 The patient is an INPATIENT: No Changes since office visit: Yes Patient answered all questions The History & Physical has been completed within 30 days and I have reviewed it.: No Section B Chief Complaint: Bilateral primary osteoarthritis of knee,pain Details of Present Illness: as above Relevant Family History (Specify if Yes): No Relevant Social History: None Present Medications: None Medical History: No relevant PMH History of Previous Operations: No relevant previous surgery Allergies: Allergies Allergy/AdvReac Type Severity Reaction Status Date / Time risperidone [Risperdal] Allergy Unknown hives/rash Verified 05/08/22 09:25 lisinopril Allergy Unknown Verified 05/08/22 09:25 nitroglycerin [NITROGLYCERIN] AdvReac Unknown SEVERE Verified 05/08/22 09:25 HYPOTENSION Review of Systems Sugical H&P ROS: Negative: Cardiovascular, Respiratory, Neurological, Psychiatric, Hem-Onc, Allergic/Immunologic, Gastrointestinal, Genitourinary, Musculoskeletal, Integumentary, Endocrine and Eyes/Ears/Nose/Throat and Yes, Specify: Constitution (obesity) Exam Surgical H&P Exam: Normal: HEENT, Normal: Heart, Normal: Lungs, Normal: Extremities, Normal: Skin and Normal: Neurological and Significant Findings: Abdomen (enlarged 2 to i/a &s/q fat) Plan Diagnosis/Plan: Unchanged I have reviewed the history and physical and performed a pertinent physical examination on my patient. No changes have occurred unless specified. Time Spent With Patient Time: Total time managing care of this patient today ____ minutes.
--- NOTE | 2022-07-03 13:22 | W.PM.OPN ---
Operative Note Operative Note Date of Service: 07/03/22 Narrative: RIGHT KNEE GENICULAR NERVES COOLED RFA. Informed consent was obtained , the patient was brought to the OR and positioned supine on ORT. Time-out was performed delineating correct site, side, the nature of the procedure, patient's allergy, preoperative antibiotic if needed. All operating room staff was participating in OR time-out procedure. C-arm was brought over the operating field and picture of the RIGHT knee was demonstrated on the screen. Anterolateral and anteromedial surfaces of the knee were prepped with chloroprep and draped with sterile? utility towels.The point of interest were delineated for: superior lateral genicular nerve as the confluence of the metaphysis of the? femur with corresponding diaphysis on the lateral silhouette of the femur distal bone, For superior medial genicular nerve (suprapatelar saphenous nerve) the point of interest was delineated as the confluence of the silhouette of the metaphysis of the femur with corresponding diaphysis on the medial silhouette on the femoral distal bone. For inferior medial genicular nerve (? Infrapatellar? saphenous nerve) the point of interest was delineated as the confluence of metaphysis of the proximal tibia on the medial side with corresponding diaphysis of the same bone. The projections of the points of interest on anterior surface of the left knee was injected with small amount of mixture of lidocaine 1% and ropivacaine 2% ? 1-to 2 ml. After that 3 cooled radiofrequency canulas 150 mm long were driven to? the point of interest in tunnel vision fashion. When needles gently contacted the bones the position of the C-arm was switched to the lateral view, care was taken to superimpose the the femoral condyles of the knee one over the other. The position of the canulas were adjusted to assure that the tip of the canulas are located at the mid shaft of each of the above described bones. After that small amount of mixture of the same local anesthetic mixture as above? and a trace amount of kenalog was injected into each canula position.? total amount of local anesthetics was 4.5 cc.? The cooled RFA machine was connected to the canulas in usual fashion and energy applied with temperature of the canulas of 60 degrees C, for the 2.5 minutes. When energy application was completed the canulas were removed and sterile dressing was applied. Patient? went to PACU where he? recovered uneventfully.
--- NOTE | 2022-07-03 13:25 | P.BOP_ITS ---
Brief Operative Note Date of Service: 07/03/22 Pre-op diagnosis: RIGHT KNEE OSTEOARTHRITIS. Post-op diagnosis: same Procedure: RIGHT KNEE RFA GENICULAR NERVES Surgeon: Jerson Alvarez MD Anesthesia: local Was an Commercial Maintenance Technician used for this Procedure?: No Estimated blood loss (mL): 1 Condition: stable Disposition: PACU
[2022-07-03 14:09] VITALS: BP 135/71; PULSE 82; RESP 16; O2SAT 96
== END 2022-07-03 14:33 | disposition home or self-care (01) ==
PROVIDERS: Visit Provider Anesthesiology
PROC: (CPT 64624; principal; 2022-07-03 14:00)
DX: M25.561 Pain in right knee (principal); M17.11 Unilateral primary osteoarthritis, right knee; G89.4 Chronic pain syndrome; E66.01 Morbid (severe) obesity due to excess calories; Z68.44 Body mass index [BMI] 60.0-69.9, adult; J44.9 Chronic obstructive pulmonary disease, unspecified; I10 Essential (primary) hypertension; G47.33 Obstructive sleep apnea (adult) (pediatric); E11.9 Type 2 diabetes mellitus without complications; Z79.51 Long term (current) use of inhaled steroids; Z79.82 Long term (current) use of aspirin; Z79.84 Long term (current) use of oral hypoglycemic drugs; Z79.899 Other long term (current) drug therapy; Z86.718 Personal history of other venous thrombosis and embolism; Z88.8 Allergy status to other drugs, medicaments and biological substances; Z90.49 Acquired absence of other specified parts of digestive tract; Z87.891 Personal history of nicotine dependence
CPT/HCPCS: 64624; J3301

== ENCOUNTER → 2022-07-17 10:27 | Outpatient (BNVA) | payer OTHER, SELFPAY | PROVIDERS: PCP Family Medicine; Visit Provider Anesthesiology | DX: G89.4 Chronic pain syndrome (principal); M25.561 Pain in right knee; M25.562 Pain in left knee; E66.01 Morbid (severe) obesity due to excess calories; E11.9 Type 2 diabetes mellitus without complications | CPT/HCPCS: Q3014 ==

== ENCOUNTER 2022-08-21 02:02 | Emergency (ER) | payer OTHER, SELFPAY ==
[2022-08-21] VITALS (8 sets, daily range): BP systolic 127–162; BP diastolic 73–98; PULSE 83–110; RESP 14–18; TEMP 36.3–37.2; O2SAT 93–97; BMI 63.0
--- NOTE | ~2022-08-21 | XR_ITS ---
EXAMINATION: XR knee RT 2V, XR knee LT 2V CLINICAL INFORMATION: Additional Information: pain, fall : COMPARISON: 12/24/2021 TECHNIQUE: 2 views of the left knee. 2 views of the right knee. FINDINGS: Left knee: No acute fracture. Increased joint space narrowing at the medial compartment with downsloping. Prominent tricompartmental marginal osteophytes. No joint effusion. Right knee: No acute fracture. Significant medial compartment joint space narrowing. Prominent marginal osteophytes throughout. No joint effusion. XR/XR knee LT 2V IMPRESSION: No acute fracture or malalignment. Advanced tricompartmental degenerative changes of both knees.
--- NOTE | ~2022-08-21 | XR_ITS ---
EXAMINATION: XR knee RT 2V, XR knee LT 2V CLINICAL INFORMATION: Additional Information: pain, fall : COMPARISON: 12/24/2021 TECHNIQUE: 2 views of the left knee. 2 views of the right knee. FINDINGS: Left knee: No acute fracture. Increased joint space narrowing at the medial compartment with downsloping. Prominent tricompartmental marginal osteophytes. No joint effusion. Right knee: No acute fracture. Significant medial compartment joint space narrowing. Prominent marginal osteophytes throughout. No joint effusion. XR/XR knee RT 2V IMPRESSION: No acute fracture or malalignment. Advanced tricompartmental degenerative changes of both knees.
[2022-08-21 02:19] LABS: Glucose, Whole Blood 174 mg/dL (60-115)
--- NOTE | 2022-08-21 02:21 | ED.FALL ---
HPI - Fall General Chief Complaint: Fall Stated Complaint: knee pain Time Seen by Provider: 08/21/22 02:16 Source: patient Mode of arrival: EMS Limitations: no limitations History of Present Illness HPI Narrative: Patient comes to the emergency room reporting that his legs are weak, his knees give out. Patient states he fell 3 times today landing on his knees. Denies hitting his head, no loss of consciousness, no blood thinners. Patient states that from the last time he was here, he went to rehab, he was not ready to be discharged. Since then, patient reports that his legs are giving out more often. Related Data Home Medications Medication Instructions Recorded Confirmed montelukast 10 mg tablet 10 mg PO DAILY 12/17/20 06/05/22 docusate sodium 100 mg capsule 1 cap PO BID PRN constipation 12/25/21 06/05/22 simvastatin 40 mg tablet 1 tab PO BEDTIME 12/25/21 06/05/22 bupropion HCl 150 mg tablet,12 hr 150 mg PO Q12H 07/03/22 07/03/22 sustained-release (Wellbutrin SR) cetirizine 10 mg capsule (Zyrtec) 10 mg PO DAILY 07/03/22 07/03/22 fluticasone 250 mcg-salmeterol 50 1 inh inhalation BID 07/03/22 07/03/22 mcg/dose blistr powdr for inhalation (Advair Diskus) glipizide 2.5 mg tablet, extended 2.5 mg PO BID 07/03/22 07/03/22 release 24 hr insulin aspart U-100 100 unit/mL 07/03/22 07/03/22 subcutaneous solution (Novolog U-100 Insulin aspart) insulin glargine 100 unit/mL 10 unit subcut DAILY 07/03/22 07/03/22 subcutaneous cartridge Previous Rx's Medication Instructions Recorded albuterol sulfate 90 mcg/actuation 2 puff inhalation Q4-6H PRN 11/01/20 aerosol inhaler shortness of breath or wheezing #8.5 grams blood sugar diagnostic (FreeStyle #100 ea 05/17/21 Lite Strips) blood-glucose meter (FreeStyle #1 ea 05/17/21 Lite Meter kit) lancets 28 gauge (FreeStyle #100 ea 05/17/21 Lancets) metformin 1,000 mg tablet 1,000 mg PO BID #30 tabs 05/17/21 Allergies Allergy/AdvReac Type Severity Reaction Status Date / Time risperidone [Risperdal] Allergy Unknown hives/rash Verified 07/17/22 10:28 lisinopril Allergy Unknown Verified 07/17/22 10:28 nitroglycerin [NITROGLYCERIN] AdvReac Unknown SEVERE Verified 07/17/22 10:28 HYPOTENSION Review of Systems Review of Systems: Constitutional : No Weight loss, No Fever, No Chills, No Night Sweats, No Fatigue, No Malaise ENT/Mouth : No Hearing loss, No Ear Pain, No Nasal Congestion, No Sinus Pain, No Hoarseness, No sore throat, No Rhinorrhea, No Swallowing Difficulty Eyes: No Eye Pain, No Swelling, No Redness, No Foreign Body, No Discharge, No Vision Changes Cardiovascular : No Chest Pain, No SOB, No Dyspnea on Exertion, No Orthopnea, No Edema, No Palpitations Respiratory : No Cough, No Sputum, No Wheezing, No Smoke Exposure, No Dyspnea Gastrointestinal : No Nausea, No Vomiting, No Diarrhea, No Constipation, No abdominal Pain, No Hematochezia, No Melena Genitourinary : no irregular bleeding, No Dysuria, No Urinary Frequency, No Hematuria, No Urinary Incontinence, No Urgency, No Flank Pain, No Urinary Flow Changes, No Hesitancy Musculoskeletal : Complaining of knee buckling, frequent falls, No joint pain, No Myalgias, No Joint Swelling Skin : No Skin Lesions, No rash Neuro : No Weakness, No Numbness, No Paresthesias, No Loss of Consciousness, No Dizziness, No Headache Psych : No Anxiety/Panic, No Depression, No SI/HI/AH/VH, No Social Issues, Heme/Lymph: No Bruising, No Bleeding,No Lymphadenopathy Endocrine : No Polyuria, No Polydipsia, No Temperature Intolerance [facility] Past Medical History Medical History Arthritis Asthma COPD (chronic obstructive pulmonary disease) Diabetes mellitus DVT (deep venous thrombosis) HTN (hypertension) Sleep apnea Surgical History History of bowel resection Social History Social History Alcohol intake: never Patient Tobacco Use Status: Former Tobacco user Substance Use Type: Marijuana Advance Directives Date on File: 12/18/20 Physical Exam Vital Signs: Vital Signs: Last Vital Signs Temp 99 F 08/21/22 02:18 Pulse 105 H 08/21/22 02:13 Resp 14 08/21/22 02:13 BP 132/90 H 08/21/22 02:13 Pulse Ox 93 08/21/22 02:13 O2 Del Method Room Air 08/21/22 02:13 BMI result Body Mass Index 63.0 Const: Other: Appearance: Alert. Oriented X3. No acute distress. Eyes: Pupils equal, round and reactive to light. ENT: Pharynx normal. Neck: Normal inspection. Neck supple. No lymph nodes noted. No crepitus CVS: Normal heart rate and rhythm. Pulses normal. Normal S1 and S2 Respiratory: No respiratory distress. Breath sounds normal. No Wheezing. No rales Abdomen: Soft and nontender. No rigidity. No distention. Skin: Skin warm and dry. Normal skin color. Normal skin turgor. Extremities: No lower extremity edema. No Lacerations. No Rash able to flex and extend the knees, states he is afraid to stand up because his knees/legs are not strong enough. Neuro: Oriented X 3. No motor deficit. No sensory deficit. Moving all extremities. No slurred speech. CN 2 through 12 grossly intact Psych: calm, cooperative, normal affect Course Course Course Narrative: -knee x-rays pending -case management and physical therapy evaluation pending -physician observation started at 02:23 Medical Decision Making Lab Data Labs: Lab Results 08/21/22 Range/Units 02:16 POC Glucose 174 H (60-115) mg/dL Discharge Plan Discharge Clinical Impression: Bilateral leg weakness Patient Disposition: Still a Patient Prescriptions: No Action albuterol sulfate 90 mcg/actuation HFA aerosol inhaler 2 puff inhalation Q4-6H PRN (Reason: shortness of breath or wheezing) Qty: 8.5 0RF montelukast 10 mg Tablet 10 mg PO DAILY (DME) blood-glucose meter [FreeStyle Lite Meter] Kit See Rx Instructions .Route Qty: 1 0RF Rx Instructions: As directed (DME) FreeStyle Lite Strips Strip See Rx Instructions .Route Qty: 100 0RF Rx Instructions: As directed (DME) lancets [FreeStyle Lancets] 28 gauge misc See Rx Instructions .Route Qty: 100 0RF Rx Instructions: As directed metformin 1,000 mg tablet 1,000 mg PO BID Qty: 30 0RF simvastatin 40 mg tablet 1 tab PO BEDTIME docusate sodium 100 mg capsule 1 cap PO BID PRN (Reason: constipation) bupropion HCl [Wellbutrin SR] 150 mg Tablet Sustained-Release 12 Hr 150 mg PO Q12H fluticasone propion-salmeterol [Advair Diskus] 250-50 mcg/dose Blister With Device 1 inh INHALATION BID glipizide 2.5 mg Tablet Extended Release 24hr 2.5 mg PO BID insulin aspart U-100 [Novolog U-100 Insulin aspart] 100 unit/mL Solution Lantus U-100 Insulin 100 unit/mL Cartridge 10 unit SUBCUT DAILY Zyrtec 10 mg Capsule 10 mg PO DAILY
--- NOTE | 2022-08-21 02:48 | PC.NURSE ---
Pt ca&ox3, no signs of distress. Pt medicated per mar. Will continue to monitor.
[2022-08-21] MEDS: Ibuprofen 600 MG TABLET PO (02:52)
[2022-08-21 07:47] LABS: Glucose, Whole Blood 137 mg/dL (60-115)
--- NOTE | 2022-08-21 09:09 | PHA.MEDREC ---
Addendum entered by Nydia Macias [facility] 08/21/22 09:21: Summary of changes: Docusate: RN added and confirmed, provider continued. Patient not taking Flonase sensimist: RN did not add, patient is taking Novolog insulin: RN left unconfirmed, sliding scale was on patient's list but not put in the med list. Continued without protocol Lantus: RN confirmed time of day as AM, but patient takes medication at bedtime. Provider continued Nystatin: RN confirmed but patient not taking Oxybutynin: RN confirmed, med ordered, patient not taking Miralax: RN did not add, patient takes Zocor 40mg: RN confirmed but patient does not take. Also therapeutic duplication with atorvastatin Saline nasal spray: Patient is on it, RN did not add Franck Alexander Original Note: Pharmacy Consult ? Medication Reconciliation Pharmacy has completed the medication reconciliation. Spoke to patient to confirm meds. Patient had med list from [facility]. List is not updated with patient's most recent medications. Talked to patient to confirm which medications patient still takes.
[2022-08-21] MEDS: Throat Lozenge, Medicated LOZENGE 1 LOZENGE MUCOUS MEM (10:42)
[2022-08-21 10:50] LABS: Appearance Urine Clear; Color Urine Yellow; Glucose Urine UA Negative (Negative); Leukocyte Esterase Urine Negative (Negative); Nitrite Urine Negative (Negative); PH 5.5 (5.0-9.0); Urine Blood Negative (Negative); Urine Ketones Negative (Negative); Urine Protein Negative (Neg-Trace)
[2022-08-21 11:01] LABS: Amphetamine Screen Urine Not Detected (Not Detect); Barbiturates, Urine Not Detected (Not Detect); Benzodiazepines Screen Urine Not Detected (Not Detect); Cannabinoid Screen Urine POSITIVE (Not Detect); Cocaine Screen Urine POSITIVE (Not Detect); Fentanyl, urine Not Detected (Not Detect); Opiate Screen Urine Not Detected (Not Detect); Phencyclidine Screen Urine Not Detected (Not Detect)
[2022-08-21 11:51] LABS: Glucose, Whole Blood 184 mg/dL (60-115)
[2022-08-21] MEDS: Insulin Lispro 100 UNIT/ML 3 ML VIAL SUBCUT ×2 (11:51→20:23)
--- NOTE | 2022-08-21 12:14 | MHC.CM.ED ---
Addendum entered by Christina Motta 08/21/22 14:08: [facility]. Patient accepts. [facility] is in the process of obtaining insurance auth and bariatric bed and wheelchair. Original Note: Received case management consult overnight. Patient came to the ER due to falls and knee pain. Patient is very well known to case management. Patient has been difficult to place in the past due to weight. Patient is vaxxed and boosted x1. HCP verified to be on file. Patient was at [facility] from 06/29-07/23. Patient was inpatient at [facility] from 08/06-08/20. Physical therapy eval completed. Short term rehab is recommended. Referral broadcasted at this time to all facilities that are contracted with [facility] within 50 miles of patient's home. T/W spoke with Loulou at [facility]. Dr Diallo Galan is listed as patient's PCP. Patient receives no services through [facility]. Continue to monitor for d/c needs.
--- NOTE | 2022-08-21 16:45 | PC.NURSE ---
Py ate 100% of all three meals today. Calm and cooperative with staff. Use of urinal independently, Got up to use bedside commode around lunch and had 1 large bowel movement. Will CTM. [facility] once Insurance is processed.
[2022-08-21 16:48] LABS: Glucose, Whole Blood 113 mg/dL (60-115)
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
[2022-08-21] MEDS: Benzonatate 100 MG CAPSULE 200 MG PO (19:36)
[2022-08-21] MEDS: Sennosides/Docusate Sodium TABLET 1 TAB PO (20:23)
[2022-08-21 20:24] LABS: Glucose, Whole Blood 190 mg/dL (60-115)
[2022-08-21] MEDS: Insulin Glargine,Hum.rec.anlog 100 UNIT/ML 10 ML VIAL 10 UNIT SUBCUT (20:24)
[2022-08-21] MEDS: glipiZIDE 5 MG TABLET 2.5 MG PO (21:34)
[2022-08-21] MEDS: carvediloL 12.5 MG TABLET PO (21:35)
[2022-08-22] MEDS: Ibuprofen 600 MG TABLET PO ×2 (04:15→22:42)
--- NOTE | 2022-08-22 05:43 | PC.NURSE ---
HS VSS. Respiratory brought CPAP for patient per his request. Pt wore it for most of the night. Emery for pain with relief-see MAY. Pt sleeping at present time. Voiding in urinal.
[2022-08-22 06:44] VITALS: BP 136/82; PULSE 66; RESP 20; TEMP 36.9; O2SAT 99
[2022-08-22 07:32] LABS: Glucose, Whole Blood 145 mg/dL (60-115)
[2022-08-22] MEDS: Fluticasone/Vilanterol 100/25 BLST.W.DEV 1 PUFF INHALE (08:14)
[2022-08-22 08:15] VITALS: PULSE 82; RESP 16; O2SAT 96
[2022-08-22] MEDS: glipiZIDE 5 MG TABLET 2.5 MG PO ×2 (09:40→20:43)
[2022-08-22] MEDS: metFORMIN HCl 1,000 MG TABLET 1000 MG PO (09:40)
[2022-08-22] MEDS: Montelukast Sodium 10 MG TABLET PO (09:40)
[2022-08-22] MEDS: carvediloL 12.5 MG TABLET PO ×2 (09:40→20:43)
[2022-08-22] MEDS: buPROPion HCl XL 300 MG TAB.ER.24H PO (09:41)
--- NOTE | 2022-08-22 09:54 | MHC.CM.ED ---
Patient remains in ER overflow. Received notification from [facility] that they are unable to accept because patient is a do not admit per corporate. Referral sent to all facilities in the [facility] that are contracted with [facility]. 149 referrals made. Continue to monitor for d/c needs.
--- NOTE | 2022-08-22 10:43 | MHC.EDTECH ---
freshened up patients room and bed, patient is independent and cleaned up himself. staff freshened the linen.
[2022-08-22 11:54] LABS: Glucose, Whole Blood 130 mg/dL (60-115)
--- NOTE | 2022-08-22 11:55 | PC.NURSE ---
patient alert, oriented x4. up at the side of the bed making jewelry. able to make needs known. will CTM
--- NOTE | 2022-08-22 14:09 | PC.NURSE ---
physical therapy at the bedside
[2022-08-22 14:25] VITALS: PULSE 82
[2022-08-22 14:27] LABS: Anion Gap 15 (12-20); Blood Urea Nitrogen 11 mg/dL (9-16); Calcium 9.2 mg/dL (8.4-10.2); Carbon Dioxide 27 mmol/L (22-29); Chloride 100 mmol/L (96-108); Creatinine Clr Calc Pharmacy 198.9; Estimated Glomerular Filt Rate > 60; Glucose Random 128 mg/dL (60-115); Potassium 4.7 mmol/L (3.3-5.1); Sodium 137 mmol/L (135-145)
[2022-08-22 15:14] VITALS: BP 145/75; PULSE 91; RESP 18; TEMP 36.2; O2SAT 96
[2022-08-22 16:55] LABS: Glucose, Whole Blood 118 mg/dL (60-115)
--- NOTE | 2022-08-22 19:26 | PC.NURSE ---
Pt resting quietly and comfortably in bed at this time. Pt is able to use a urinal and the commode with a walker. Pt is A&Ox4, GCS 15, with warm, dry skin. Pt has no complaints at this time.
[2022-08-22 20:32] LABS: Glucose, Whole Blood 183 mg/dL (60-115)
[2022-08-22] MEDS: Atorvastatin Calcium 20 MG TABLET PO (20:43)
[2022-08-22] MEDS: Insulin Glargine,Hum.rec.anlog 100 UNIT/ML 10 ML VIAL 10 UNIT SUBCUT (20:43)
[2022-08-22] MEDS: Insulin Lispro 100 UNIT/ML 3 ML VIAL SUBCUT (20:43)
[2022-08-22] MEDS: Sennosides/Docusate Sodium TABLET 1 TAB PO (21:02)
--- NOTE | 2022-08-22 22:52 | MHC.CM.ED ---
CM met with patient in regards to STR. [facility] is unable to offer a bed per their administration. Pt understands. Pt aware that referrals have been made state-wide. Pt does not want to go to [place]. CM explained that we need to see who will offer a bed first. Pt is aware that if a bed offer is made, and patient does not accept the bed, then he may be discharged. Pt is presently homeless. Expect he will be here over the weekend. CM stressed patience. Pt acknowledges understanding of situation and need to refer statewide.
[2022-08-22 23:20] VITALS: BP 155/82; PULSE 86; RESP 20; TEMP 36.6; O2SAT 96
[2022-08-22 23:22] LABS: Glucose, Whole Blood 176 mg/dL (60-115)
--- NOTE | 2022-08-23 03:11 | PC.NURSE ---
Assumed care of pt. Pt transfered to room in hospital stretcher. Pt denies pain at this time. Has personal belongings at bedside. Vitals obtained. WCTM
[2022-08-23 03:12] VITALS: BP 138/73; PULSE 81; RESP 18; TEMP 36.6; O2SAT 97
[2022-08-23 06:00] VITALS: BP 138/79; PULSE 64; RESP 15; TEMP 36.3; O2SAT 95
[2022-08-23 06:54] LABS: Glucose, Whole Blood 151 mg/dL (60-115)
[2022-08-23] MEDS: Fluticasone/Vilanterol 100/25 BLST.W.DEV 1 PUFF INHALE (08:33)
[2022-08-23 08:35] VITALS: PULSE 82; RESP 18; O2SAT 93
[2022-08-23] MEDS: polyethylene glycoL 3350 17 GM POWD.PACK PO (09:28)
[2022-08-23] MEDS: Montelukast Sodium 10 MG TABLET PO (09:29)
[2022-08-23] MEDS: metFORMIN HCl 1,000 MG TABLET 1000 MG PO (09:29)
[2022-08-23] MEDS: Sennosides/Docusate Sodium TABLET 1 TAB PO ×2 (09:29→20:50)
[2022-08-23] MEDS: buPROPion HCl XL 300 MG TAB.ER.24H PO (09:29)
[2022-08-23] MEDS: carvediloL 12.5 MG TABLET PO ×2 (09:29→20:50)
[2022-08-23 09:31] VITALS: BP 131/76; PULSE 84; RESP 16; O2SAT 97
--- NOTE | 2022-08-23 09:35 | PC.NURSE ---
alert and oriented, vss. pt resting comfortably in bed with call guzman in reach. no complaints at this time
[2022-08-23] MEDS: glipiZIDE 5 MG TABLET 2.5 MG PO ×2 (10:38→22:36)
[2022-08-23] MEDS: Benzonatate 100 MG CAPSULE PO (11:27)
[2022-08-23 11:32] LABS: Glucose, Whole Blood 152 mg/dL (60-115)
[2022-08-23 15:53] VITALS: BP 152/88; PULSE 89; RESP 18; TEMP 36.6; O2SAT 94
[2022-08-23 18:23] LABS: Glucose, Whole Blood 145 mg/dL (60-115)
[2022-08-23] MEDS: guaiFEN/Codeine SF 200/20/10ML 10 ML LIQUID PO (20:50)
[2022-08-23] MEDS: Insulin Glargine,Hum.rec.anlog 100 UNIT/ML 10 ML VIAL 10 UNIT SUBCUT (20:51)
[2022-08-23] MEDS: Atorvastatin Calcium 20 MG TABLET PO (20:51)
[2022-08-23 20:59] LABS: Glucose, Whole Blood 160 mg/dL (60-115)
[2022-08-23] MEDS: Insulin Lispro 100 UNIT/ML 3 ML VIAL SUBCUT (21:04)
[2022-08-24 05:41] VITALS: BP 134/70; PULSE 74; RESP 18; TEMP 36.6; O2SAT 96
[2022-08-24 07:36] LABS: Glucose, Whole Blood 133 mg/dL (60-115)
[2022-08-24] MEDS: Acetaminophen 325 MG TABLET 975 MG PO ×2 (07:40→16:47)
[2022-08-24] MEDS: Fluticasone/Vilanterol 100/25 BLST.W.DEV 1 PUFF INHALE (08:22)
[2022-08-24 08:24] VITALS: PULSE 94; RESP 20; O2SAT 95
[2022-08-24] MEDS: polyethylene glycoL 3350 17 GM POWD.PACK PO (08:29)
[2022-08-24] MEDS: buPROPion HCl XL 300 MG TAB.ER.24H PO (08:30)
[2022-08-24] MEDS: carvediloL 12.5 MG TABLET PO ×2 (08:30→21:01)
[2022-08-24] MEDS: Montelukast Sodium 10 MG TABLET PO (08:30)
[2022-08-24] MEDS: glipiZIDE 5 MG TABLET 2.5 MG PO ×2 (08:30→21:02)
[2022-08-24] MEDS: metFORMIN HCl 1,000 MG TABLET 1000 MG PO (08:30)
[2022-08-24 11:36] LABS: Glucose, Whole Blood 87 mg/dL (60-115)
[2022-08-24 14:00] VITALS: BP 118/68; PULSE 83; RESP 18; TEMP 36; O2SAT 96
--- NOTE | 2022-08-24 15:54 | MHC.EDTECH ---
t/w changed pt's sheets upon pt request. t/w replaced fitted sheet and provided pt w/ additional linen to assist with patient's rehab goals and promote independence. pt replaced pillowcase himself. per report, pt can ambulate independently in room and use commode independently
[2022-08-24 16:37] LABS: Glucose, Whole Blood 133 mg/dL (60-115)
--- NOTE | 2022-08-24 17:30 | PC.NURSE ---
Assumed care at 1500. Patient alert and oriented x3. Patient reports 6/10, bilateral leg pain. Tylenol 975mg given per EMAR. Patient independent. All needs met at this time.
[2022-08-24 19:39] VITALS: BP 173/95; PULSE 90; RESP 18; TEMP 36.6; O2SAT 94
[2022-08-24 20:57] LABS: Glucose, Whole Blood 186 mg/dL (60-115)
[2022-08-24] MEDS: Atorvastatin Calcium 20 MG TABLET PO (21:01)
[2022-08-24] MEDS: Sennosides/Docusate Sodium TABLET 1 TAB PO (21:02)
[2022-08-24] MEDS: Insulin Lispro 100 UNIT/ML 3 ML VIAL SUBCUT (21:03)
[2022-08-24] MEDS: Insulin Glargine,Hum.rec.anlog 100 UNIT/ML 10 ML VIAL 10 UNIT SUBCUT (21:03)
--- NOTE | 2022-08-24 23:05 | PC.NURSE ---
Addendum entered by Tonja Rivas RN 08/25/22 01:46: Tesrosita steinberg ordered and administered to patient with effect. Wearing CPAP overnight while sleeping. Original Note: Assumed care for patient at 1900. A&Ox3, no c/o pain or discomfort. Pt having loose hacking cough, no wheezing noted. LS clear to auscultation. ED Provider notified as patient requesting cough syrup. No new orders given at this time. Call guzman within reach, bed in lowest locked position. Maintained safety.
[2022-08-24] MEDS: Benzonatate 100 MG CAPSULE 200 MG PO (23:20)
[2022-08-25 00:30] VITALS: RESP 18
[2022-08-25 05:11] VITALS: BP 159/76; PULSE 80; RESP 17; TEMP 36.8; O2SAT 97
[2022-08-25 08:08] LABS: Glucose, Whole Blood 139 mg/dL (60-115)
[2022-08-25] MEDS: metFORMIN HCl 1,000 MG TABLET 1000 MG PO (09:24)
[2022-08-25] MEDS: glipiZIDE 5 MG TABLET 2.5 MG PO ×2 (09:24→20:15)
[2022-08-25] MEDS: Montelukast Sodium 10 MG TABLET PO (09:24)
[2022-08-25] MEDS: carvediloL 12.5 MG TABLET PO ×2 (09:24→20:15)
[2022-08-25] MEDS: buPROPion HCl XL 300 MG TAB.ER.24H PO (09:24)
--- NOTE | 2022-08-25 10:01 | PC.NURSE ---
PT at the bedside
[2022-08-25] MEDS: Fluticasone/Vilanterol 100/25 BLST.W.DEV 1 PUFF INHALE (10:20)
--- NOTE | 2022-08-25 11:22 | MHC.CM.ED ---
Patient currently in ER overflow. [facility] and [facility] are able to offer a bed. Met with patient to discuss discharge planning. Patient accepts bed at [facility]. [facility] has been asked to go for insurance auth. Continue to monitor for d/c needs.
[2022-08-25 11:58] LABS: Glucose, Whole Blood 111 mg/dL (60-115)
--- NOTE | 2022-08-25 12:10 | PC.NURSE ---
patient brought to p pod for shower.
[2022-08-25 13:06] LABS: COVID-19 Test Negative (Negative); IDNOW Serial# BCCEAD1C
[2022-08-25 13:18] VITALS: BP 142/75; PULSE 86; RESP 16; TEMP 36.7; O2SAT 96
[2022-08-25 16:42] LABS: Glucose, Whole Blood 117 mg/dL (60-115)
--- NOTE | 2022-08-25 17:37 | MHC.EDTECH ---
Checked patient's blood sugar at 16:30.
--- NOTE | 2022-08-25 17:38 | MHC.EDTECH ---
Brought patient a pitcher of ice water, brought patients belongings for easy reach. Emptied urinal. Assist patient onto wheelchair.
[2022-08-25 19:27] LABS: Glucose, Whole Blood 166 mg/dL (60-115)
[2022-08-25] MEDS: Insulin Lispro 100 UNIT/ML 3 ML VIAL SUBCUT (20:15)
[2022-08-25] MEDS: Atorvastatin Calcium 20 MG TABLET PO (20:15)
[2022-08-25] MEDS: Sennosides/Docusate Sodium TABLET 1 TAB PO (20:15)
[2022-08-25] MEDS: Insulin Glargine,Hum.rec.anlog 100 UNIT/ML 10 ML VIAL 10 UNIT SUBCUT (20:16)
[2022-08-25 22:00] VITALS: BP 149/95; PULSE 89; RESP 16; TEMP 36.7; O2SAT 96
[2022-08-25] MEDS: guaiFENesin 200 MG/10 ML 10 ML LIQUID PO (22:04)
[2022-08-25] MEDS: Acetaminophen 325 MG TABLET 975 MG PO (22:40)
--- NOTE | 2022-08-25 23:01 | MHC.EDTECH ---
Brought patient a sandwich and a drink.
[2022-08-25 23:49] VITALS: RESP 16
[2022-08-26 06:00] VITALS: BP 115/65; PULSE 65; RESP 20; TEMP 36.1; O2SAT 98
[2022-08-26 07:35] LABS: Glucose, Whole Blood 146 mg/dL (60-115)
[2022-08-26] MEDS: polyethylene glycoL 3350 17 GM POWD.PACK PO (08:00)
[2022-08-26] MEDS: Sodium Chloride 0.65 % Nasal 44 ML SPRBTL 2 SPRAY NOSTRIL-B (08:01)
[2022-08-26] MEDS: Fluticasone Propionate Nasal 16 GM SPRAY 2 SPRAY NOSTRIL-B (08:01)
[2022-08-26] MEDS: glipiZIDE 5 MG TABLET 2.5 MG PO (08:02)
[2022-08-26] MEDS: metFORMIN HCl 1,000 MG TABLET 1000 MG PO (08:02)
[2022-08-26] MEDS: carvediloL 12.5 MG TABLET PO (08:02)
[2022-08-26] MEDS: buPROPion HCl XL 300 MG TAB.ER.24H PO (08:02)
[2022-08-26] MEDS: Montelukast Sodium 10 MG TABLET PO (08:04)
[2022-08-26] MEDS: Sennosides/Docusate Sodium TABLET 1 TAB PO (08:04)
[2022-08-26] MEDS: Fluticasone/Vilanterol 100/25 BLST.W.DEV 1 PUFF INHALE (08:07)
--- NOTE | 2022-08-26 09:16 | PC.NURSE ---
Patient alert and oriented x 3. No complaints of pain. Lungs clear. Heart regular. Positive bowel sounds x 4 quads. Appetite good this morning. Ate 100% of breakfast. Patient with 9am discharge time to [facility].
== END 2022-08-26 09:18 | disposition skilled nursing facility (03) ==
PROVIDERS: Physician Assistant Medical; Emergency Provider Emergency Medicine; PCP Internal Medicine
DX: R53.1 Weakness (principal); E11.9 Type 2 diabetes mellitus without complications; I10 Essential (primary) hypertension; Z86.718 Personal history of other venous thrombosis and embolism; Z79.02 Long term (current) use of antithrombotics/antiplatelets; Z79.4 Long term (current) use of insulin; Z79.899 Other long term (current) drug therapy
CPT/HCPCS: 36415; 73560; 80048; 80307; 81003; 82947; 87635; 94640; 97110; 97162; 97530; 99285